=== PATIENT | female | born 1980 | race Caucasian/White ===

== ENCOUNTER → 2017-01-02 | Outpatient (CLI) | payer BC, OTHER ==
[2017-01-02 07:34] LABS: CH 31.9; HDW 2.24; HGB 15.4 gm/dL (11.4-16.0); MCH 31.5 pg (25.0-35.0); MCHC 33.6 g/dL (31.0-37.0); Mean Platelet Volume 6.9; RDW 11.8 % (11.5-15.5); WBC 8.4 k/uL (3.8-10.6)
[2017-01-02 07:57] LABS: ALT 30 U/L (9-52); AST 17 U/L (14-36); Alkaline Phosphatase 79 U/L (38-126); Anion Gap 9 mmol/L; Blood Urea Nitrogen 15 mg/dL (7-17); Carbon Dioxide 25 mmol/L (22-30); Chloride 102 mmol/L (98-107); Cholesterol 217 mg/dL (<200); Glucose 236 mg/dL (74-99); HDL Cholesterol 50 mg/dL (40-60); Non-African American GFR(MDRD) >60 (>60 ml/min/1.73 sqM); Potassium 4.6 mmol/L (3.5-5.1); Sodium 136 mmol/L (137-145); Total Bilirubin 0.9 mg/dL (0.2-1.3); Total Protein 6.9 g/dL (6.3-8.2); Triglycerides 111 mg/dL (<150)
== END | disposition home or self-care (01) ==
LOC: LABWHC1 06:39
PROVIDERS: ATTEND Family Medicine
DX: Z00.01 Encounter for general adult medical examination with abnormal findings (principal); F41.8 Other specified anxiety disorders; Z71.6 Tobacco abuse counseling
CPT/HCPCS: 36415; 80053; 80061; 84443; 85027

== ENCOUNTER → 2017-11-03 | Outpatient (CLI) | payer BC, OTHER | END | disposition home or self-care (01) | LOC: RADUSWWP 08:56 | PROVIDERS: ATTEND Family Medicine | DX: R09.89 Other specified symptoms and signs involving the circulatory and respiratory systems (principal) | CPT/HCPCS: 93923 ==

== ENCOUNTER 2018-01-12 22:14 | Inpatient (IN) | payer BC, OTHER ==
[2018-01-12] MEDS ORDERED: OXYMETAZOLINE 0.05% NASL SPRAY 1 SPRAY BOTTLE NASAL STA (23:25)
[2018-01-12] MEDS ORDERED: OXYMETAZOLINE 0.05% NASL SPRAY 1 SPRAY BOTTLE ONE (23:26)
[2018-01-12] MEDS ORDERED: NITROGLYCERIN OINT 1 INCH/GM PACKET TOPICAL STA (23:39)
--- NOTE | 2018-01-12 23:45 | ED ---
General Adult HPI - General Chief complaint: Recheck/Abnormal Lab/Rx Stated complaint: nose bleed/on blood thinners Time Seen by Provider: 01/12/18 22:45 Source: patient, RN notes reviewed Mode of arrival: ambulatory Limitations: no limitations - History of Present Illness Initial comments: Patient is a pleasant 37-year-old female presenting to the emergency department with complaints of epistaxis. Onset was approximately half hour or so prior to arrival. Patient does have a history of epistaxis couple of times previously. Patient is on brilinta for history of cardiac problems. Patient does also complain of having left shoulder discomfort over the past couple of hours. Patient states shoulder discomfort is similar to previous cardiac problems. Patient denies any chest pain, dyspnea, or diaphoresis. Patient states she does not have those with her heart problems previously either. Patient has had 4 stents placed. - Related Data Home Medications Medication Instructions Recorded Confirmed Dextroamphetamine/Amphetamine 30 mg PO DAILY 06/19/14 01/12/18 [Adderall Xr] Escitalopram [Lexapro] 20 mg PO DAILY 01/12/18 01/12/18 Insulin Aspart (For Pump) [NovoLOG 0.01 unit SQ-PUMP CONTINUOUS 01/12/18 (For Pump)] L.acidoph,Paracasei, B.lactis 1 cap PO DAILY 01/12/18 01/12/18 [Probiotic] Metoprolol Succinate (ER) [Toprol 25 mg PO DAILY 01/12/18 01/12/18 Xl] buPROPion HCL [Wellbutrin XL] 150 mg PO DAILY 01/12/18 01/12/18 Previous Rx's Medication Instructions Recorded Aspirin 81 mg PO DAILY #30 chew 06/24/17 Atorvastatin [Lipitor] 80 mg PO HS #30 tab 06/24/17 Famotidine [Pepcid] 20 mg PO DAILY #30 tablet 06/24/17 Losartan [Cozaar] 12.5 mg PO DAILY #30 tab 06/24/17 Ticagrelor [Brilinta] 90 mg PO BID #60 tab 06/24/17 Allergies Allergy/AdvReac Type Severity Reaction Status Date / Time cefaclor [From Ceclor] Allergy Unknown Verified 01/12/18 22:46 Cephalosporins Allergy Unknown Verified 01/12/18 22:46 hydromorphone HCl Allergy Unknown Verified 01/12/18 22:46 [From Dilaudid] lithium [[place]] Allergy Unknown Verified 01/12/18 22:46 oxcarbazepine Allergy Unknown Verified 01/12/18 22:46 [From Trileptal] phenytoin sodium Allergy Unknown Verified 01/12/18 22:46 [From Dilantin] phenytoin sodium extended Allergy Unknown Verified 01/12/18 22:46 [From Dilantin] Sulfa (Sulfonamide Allergy Unknown Verified 01/12/18 22:46 Antibiotics) sulfamethoxazole Allergy Unknown Verified 01/12/18 22:46 [From Bactrim] trimethoprim [From Bactrim] Allergy Unknown Verified 01/12/18 22:46 Review of Systems ROS Statement: Those systems with pertinent positive or pertinent negative responses have been documented in the HPI. ROS Other: All systems not noted in ROS Statement are negative. Constitutional: Denies: fever Eyes: Denies: eye pain ENT: Denies: ear pain Respiratory: Denies: cough, dyspnea Cardiovascular: Denies: chest pain Endocrine: Denies: fatigue Gastrointestinal: Denies: abdominal pain Genitourinary: Denies: dysuria Musculoskeletal: Denies: back pain Skin: Denies: rash Neurological: Denies: weakness Past Medical History Past Medical History: Diabetes Mellitus, Hyperlipidemia, Hypertension, Myocardial Infarction ([place]) Additional Past Medical History / Comment(s): neuropathy, restless leg syndrome History of Any Multi-Drug Resistant Organisms: None Reported Past Surgical History: Section, Heart Catheterization With Stent, Tubal Ligation Additional Past Surgical History / Comment(s): sinues surgery, right breast cyst removal, 14 cysts taken of ovaries and tubes Past Anesthesia/Blood Transfusion Reactions: No Reported Reaction Past Psychological History: No Psychological Hx Reported Smoking Status: Current some day smoker Past Alcohol Use History: None Reported Past Drug Use History: None Reported General Exam Limitations: no limitations General appearance: alert, in no apparent distress Head exam: Present: atraumatic Eye exam: Present: normal appearance, PERRL ENT exam: Present: other (Active bleeding right nares) Neck exam: Present: normal inspection Respiratory exam: Present: normal lung sounds bilaterally. Absent: chest wall tenderness Cardiovascular Exam: Present: regular rate, normal rhythm Expanded Peripheral pulses: 2+: Radial (R), Radial (L), Dorsalis Pedis (R), Dorsalis Pedis (L) GI/Abdominal exam: Present: soft. Absent: tenderness Extremities exam: Present: normal inspection. Absent: pedal edema, calf tenderness Neurological exam: Present: alert Psychiatric exam: Present: normal affect, normal mood Skin exam: Present: normal color Course Vital Signs 01/12/18 01/13/18 22:36 00:02 Temperature 97.6 F Pulse Rate 76 83 Respiratory 18 16 Rate Blood Pressure 140/71 145/72 O2 Sat by Pulse 99 98 Oximetry EKG Findings - EKG Comments: EKG Findings:: Normal sinus rhythm 77. MS 138. QRS 90. QT 418. QTC 473. Normal axis. Septal Q waves. No acute ST change. Procedures - Procedures Initial comment: Epistaxis treatment: Patient had nasal clamp placed without success. Patient did have active bleeding on the right side. Suction was used. Attempts to cauterize with silver nitrate unsuccessful. Afrin was used. Patient did have Rhino Rocket placed on the right side without complication. There is only mild oozing at this time. Medical Decision Making - Medical Decision Making Patient reevaluated and resting comfortably in bed. Patient states she does have some bruising still however is not witness during reevaluation. Patient does complain of discomfort secondary to nasal packing. Patient is updated on results. Case was discussed in detail with Dr. Hidalgo who was agreeable to hold patient for observation. Cardiac enzymes will be rechecked. - Lab Data Result diagrams: 01/12/18 23:14 01/12/18 23:14 Lab Results 01/12/18 01/12/18 01/12/18 Range/Units 23:14 23:14 23:14 WBC 8.5 (3.8-10.6) k/uL RBC 4.71 (3.80-5.40) m/uL Hgb 14.3 (11.4-16.0) gm/dL Hct 43.4 (34.0-46.0) % MCV 92.1 (80.0-100.0) fL MCH 30.4 (25.0-35.0) pg MCHC 33.0 (31.0-37.0) g/dL RDW 12.0 (11.5-15.5) % Plt Count 247 (150-450) k/uL Neutrophils % 73 % Lymphocytes % 20 % Monocytes % 4 % Eosinophils % 1 % Basophils % 0 % Neutrophils # 6.2 (1.3-7.7) k/uL Lymphocytes # 1.7 (1.0-4.8) k/uL Monocytes # 0.4 (0-1.0) k/uL Eosinophils # 0.1 (0-0.7) k/uL Basophils # 0.0 (0-0.2) k/uL PT (9.0-12.0) sec INR (<1.2) APTT (22.0-30.0) sec Sodium 142 (137-145) mmol/L Potassium 4.1 (3.5-5.1) mmol/L Chloride 106 (98-107) mmol/L Carbon Dioxide 23 (22-30) mmol/L Anion Gap 13 mmol/L BUN 17 (7-17) mg/dL Creatinine 0.70 (0.52-1.04) mg/dL Est GFR (CKD-EPI)AfAm >90 (>60 ml/min/1.73 sqM) Est GFR (CKD-EPI)NonAf >90 (>60 ml/min/1.73 sqM) Glucose 213 H (74-99) mg/dL Calcium 9.5 (8.4-10.2) mg/dL Magnesium 1.8 (1.6-2.3) mg/dL Total Bilirubin 0.3 (0.2-1.3) mg/dL AST 24 (14-36) U/L ALT 43 (9-52) U/L Alkaline Phosphatase 93 (38-126) U/L Total Creatine Kinase 90 (30-135) U/L CK-MB (CK-2) 1.1 (0.0-2.4) ng/mL CK-MB (CK-2) Rel Index 1.2 Troponin I <0.012 (0.000-0.034) ng/mL Total Protein 6.2 L (6.3-8.2) g/dL Albumin 3.8 (3.5-5.0) g/dL 01/12/18 Range/Units 23:14 WBC (3.8-10.6) k/uL RBC (3.80-5.40) m/uL Hgb (11.4-16.0) gm/dL Hct (34.0-46.0) % MCV (80.0-100.0) fL MCH (25.0-35.0) pg MCHC (31.0-37.0) g/dL RDW (11.5-15.5) % Plt Count (150-450) k/uL Neutrophils % % Lymphocytes % % Monocytes % % Eosinophils % % Basophils % % Neutrophils # (1.3-7.7) k/uL Lymphocytes # (1.0-4.8) k/uL Monocytes # (0-1.0) k/uL Eosinophils # (0-0.7) k/uL Basophils # (0-0.2) k/uL PT 9.5 (9.0-12.0) sec INR 1.0 (<1.2) APTT 23.5 (22.0-30.0) sec Sodium (137-145) mmol/L Potassium (3.5-5.1) mmol/L Chloride (98-107) mmol/L Carbon Dioxide (22-30) mmol/L Anion Gap mmol/L BUN (7-17) mg/dL Creatinine (0.52-1.04) mg/dL Est GFR (CKD-EPI)AfAm (>60 ml/min/1.73 sqM) Est GFR (CKD-EPI)NonAf (>60 ml/min/1.73 sqM) Glucose (74-99) mg/dL Calcium (8.4-10.2) mg/dL Magnesium (1.6-2.3) mg/dL Total Bilirubin (0.2-1.3) mg/dL AST (14-36) U/L ALT (9-52) U/L Alkaline Phosphatase (38-126) U/L Total Creatine Kinase (30-135) U/L CK-MB (CK-2) (0.0-2.4) ng/mL CK-MB (CK-2) Rel Index Troponin I (0.000-0.034) ng/mL Total Protein (6.3-8.2) g/dL Albumin (3.5-5.0) g/dL - Radiology Data Radiology results: image reviewed (Chest x-ray reveals no acute process) Disposition Clinical Impression: Epistaxis, Atypical chest pain Disposition: ADMITTED IP TO THIS [facility] Referrals: Jasen Hidalgo MD [Primary Care Provider] - 1-2 days Decision Time: 00:46
[2018-01-12 23:52] LABS: Basophils % (A) 0 %; Eosinophils # (A) 0.1 k/uL (0-0.7); Eosinophils % (A) 1 %; HCT 43.4 % (34.0-46.0); HGB 14.3 gm/dL (11.4-16.0); Lymphocytes # (A) 1.7 k/uL (1.0-4.8); Lymphocytes % (A) 20 %; MCH 30.4 pg (25.0-35.0); MCV 92.1 fL (80.0-100.0); Mean Platelet Volume 6.8; Monocytes # (A) 0.4 k/uL (0-1.0); Monocytes % (A) 4 %; Neutrophils # (A) 6.2 k/uL (1.3-7.7); Neutrophils % (A) 73 %; Platelet Count 247 k/uL (150-450); RBC 4.71 m/uL (3.80-5.40); WBC 8.5 k/uL (3.8-10.6)
[2018-01-12 23:55] LABS: Partial Thromboplastin Time 23.5 sec (22.0-30.0); Prothrombin Time 9.5 sec (9.0-12.0)
[2018-01-12 23:57] LABS: ALT 43 U/L (9-52); AST 24 U/L (14-36); Albumin 3.8 g/dL (3.5-5.0); Alkaline Phosphatase 93 U/L (38-126); Anion Gap 13 mmol/L; Blood Urea Nitrogen 17 mg/dL (7-17); Calcium 9.5 mg/dL (8.4-10.2); Carbon Dioxide 23 mmol/L (22-30); Chloride 106 mmol/L (98-107); Glucose 213 mg/dL (74-99); Magnesium 1.8 mg/dL (1.6-2.3); Potassium 4.1 mmol/L (3.5-5.1); Sodium 142 mmol/L (137-145); Total Bilirubin 0.3 mg/dL (0.2-1.3); Total Protein 6.2 g/dL (6.3-8.2)
[2018-01-13 00:07] LABS: Creatine Kinase 90 U/L (30-135)
[2018-01-13 00:20] LABS: Creatine Kinase MB 1.1 ng/mL (0.0-2.4); Troponin I <0.012 ng/mL (0.000-0.034)
--- NOTE | 2018-01-13 00:35 | XR ---
EXAMINATION TYPE: XR chest 2V DATE OF EXAM: 01/13/2018 COMPARISON: 06/18/2017 HISTORY: Uncontrollable nosebleed. TECHNIQUE: Frontal and lateral views of the chest are obtained. FINDINGS: Heart and mediastinum are normal. Lungs are clear. Diaphragm is normal. Bony thorax appear s normal. There are chest leads. IMPRESSION: Normal chest. No change.
[2018-01-13] MEDS ORDERED: NITROGLYCERIN SL TABS 0.4 MG TAB SUBLINGUAL PRN (00:47)
[2018-01-13] MEDS ORDERED: MORPHINE SULFATE 4 MG/ML SYRINGE IVP STA (00:50)
[2018-01-13 02:29] VITALS: BMI 30.7
[2018-01-13] MEDS: MORPHINE SULFATE 4 MG/ML SYRINGE IVP PRN ×2 (02:45→06:08)
[2018-01-13] MEDS: NITROGLYCERIN OINT 1 INCH/GM PACKET TOPICAL SCH ×4 (06:05→23:13)
[2018-01-13 06:08] LABS: Creatine Kinase 77 U/L (30-135)
[2018-01-13 06:20] LABS: Troponin I <0.012 ng/mL (0.000-0.034)
[2018-01-13 06:56] LABS: Glucose,Whole Blood 75 mg/dL (75-99)
[2018-01-13] MEDS ORDERED: AMINOPHYLLINE 500 MG/20 ML VIAL IV PRN (07:26)
[2018-01-13] MEDS ORDERED: REGADENOSON 0.4 MG/5 ML SYRINGE IV ONE (07:26)
--- NOTE | 2018-01-13 07:59 | CONS ---
CONSULTATION Mrs. Gomez is a 37-year-old female with a known history of coronary artery disease, who presented with symptoms of epistaxis. The patient has been on the Brilinta and aspirin because of the history of coronary artery disease and has had recurrent epistaxis, but yesterday was quite severe. At the same time she had left shoulder discomfort reminding her somewhat of the symptoms she had in May when she presented with non ST-segment elevation myocardial infarction. According to her, this is the first time she has the symptoms. She has been doing well otherwise. She denies any exertional chest pain. Her breathing has been stable. She denies any dizziness or palpitation. She denies any syncope. She has some peripheral edema. She has no clear PND or orthopnea. In May 2017, she presented with a non ST-segment elevation myocardial infarction. She underwent cardiac catheterization at that time and was found to have significant obstructive disease involving the LAD and the right coronary artery. Underwent successful stenting of both vessels by Dr. Álvarez. According to her, this is the first time she has any symptoms. Patient's coronary risk factors are remarkable for occasional smoking. She has a longstanding history of diabetes. She has hyperlipidemia. She has no significant hypertension. Her medications at home include aspirin once a day, Lipitor 80 mg daily, Lexapro 20 mg daily, Pepcid, Cozaar 12.5 mg daily, metoprolol succinate 25 mg daily, Brilinta 90 mg twice a day and insulin. REVIEW OF SYSTEMS: RESPIRATORY SYSTEM: She has no recent wheezing. No cough. No history of obstructive lung disease. GI SYSTEM: No recent GI bleed. No peptic ulcer disease. SYSTEM: No dysuria or hematuria. NERVOUS SYSTEM: No history of stroke or seizure. PHYSICAL EXAMINATION: This is a 37-year-old female, alert, oriented, in no apparent distress. Packing was noted in the right nostril. Blood pressure 138/70 with the heart rate in the 60s. HEAD: Normocephalic. EYES: Sclerae anicteric. NECK: Good upstroke. No bruit. No jugular venous distention. LUNGS: Clear to auscultation. HEART: Regular rate and rhythm. S1, S2. No S3, no S4. No murmur or rub. ABDOMEN: Soft, nontender. Positive bowel sounds. No organomegaly. EXTREMITIES: No edema. Intact distal pulses. LAB DATA: Lab data revealed troponin less than 0.012 for 2 samples. BUN and creatinine 17 and 0.7. Potassium 4.1. Hemoglobin 14.3. EKG revealed a sinus mechanism with a normal axis and intervals. No acute changes with a QS pattern in V1 to V3. IMPRESSION: 1. Epistaxis related to anticoagulation. 2. Shoulder discomfort reminding her of the symptoms she had in May at the time of her presentation with non-ST elevation myocardial infarction. 3. Hyperlipidemia. 4. Diabetes mellitus. RECOMMENDATION: I will obtain an echocardiogram with Doppler and myocardial perfusion imaging to rule out any obstructive coronary artery disease and depending on those results. Further recommendation will be made. The patient may be he switch from Brilinta to aspirin because of the recurrent epistaxis. Thank you for this consult. We will follow with you. JANNETL / IJN: [id number] /
[2018-01-13] MEDS ORDERED: CLOPIDOGREL 75 MG TAB PO SCH (09:00)
[2018-01-13] MEDS ORDERED: buPROPion XL 150 MG TAB.ER.24H PO SCH (09:00)
[2018-01-13] MEDS ORDERED: AMINOPHYLLINE 250 MG/10 ML VIAL IV ONE (09:40)
[2018-01-13] MEDS ORDERED: MORPHINE ORAL SOLN 10 MG/5 ML CUP PO PRN ×2 (10:02→14:38)
--- NOTE | 2018-01-13 11:10 | NM ---
EXAMINATION TYPE: NM stress lexiscan cardiolite DATE OF EXAM: 01/13/2018 COMPARISON: NONE HISTORY: Chest pain TECHNIQUE: After the intravenous administration of 10.7 mCi Tc 99m Sestamibi - Cardiolite resting SP ECT images acquired 45 minutes post injection. The patient received 0.4mg Lexiscan, 25.9 mCi Tc 99m Sestamibi - Stress images obtained [address] injection FINDINGS: Review of stress and rest SPECT images demonstrates some decreased radiopharmaceutical uptake along t he cardiac apex, anteroseptal left ventricle on stress as compared to rest images. Gated analysis sh ows normal wall motion with an estimated left ventricular ejection fraction of 66 %. IMPRESSION: Findings compatible with pharmacologic induced left ventricular myocardial ischemia as described.
[2018-01-13] MEDS: METOPROLOL SUCCINATE (ER) 25 MG TAB.ER.24H PO SCH (11:25)
[2018-01-13] MEDS: FAMOTIDINE 20 MG TAB PO SCH (11:25)
[2018-01-13] MEDS: LOSARTAN 25 MG TAB PO SCH (11:26)
[2018-01-13] MEDS: ESCITALOPRAM 20 MG TAB PO SCH (11:26)
[2018-01-13] MEDS: ASPIRIN 81 MG PO SCH (11:27)
[2018-01-13] MEDS ORDERED: ALPRAZolam 0.25 MG TAB PO PRN (12:16)
[2018-01-13] MEDS ORDERED: SODIUM CHLORIDE 0.9% 1,000 ML in EMPTY BAG 1 BAG IV ONE (12:16)
--- NOTE | 2018-01-13 12:20 | EST ---
EXERCISE STRESS DATE OF SERVICE: 02/13/2018 AGE: 37 SEX: F HT: 5'6" WT: 190 PROTOCOL: Lexiscan Cardiolite Stress Test HEART RATE REST: 62 BLOOD PRESSURE REST: 127/84 MAXIMUM HEART RATE ACHIEVED: 117 MAXIMUM BLOOD PRESSURE: 135/67 85% MPHR: 154 100% MPHR: 181 INDICATIONS: Shoulder pain. CLINICAL INFORMATION: Baseline rhythm is sinus mechanism, rate 62, normal axis, intervals, minor nonspecific ST-T wave changes. Baseline blood pressure 127/84 mmHg. Patient received an injection of Lexiscan. Electrocardiograph monitoring revealed no evidence of diagnostic ischemic ST deviation. Cardiolite was injected per protocol. CONCLUSION: 1. Nondiagnostic electrocardiogram stress testing. 2. Nuclear images will be reported separately. MMODL / IJN: [id number] /
[2018-01-13 12:24] LABS: Glucose,Whole Blood 114 mg/dL (75-99)
[2018-01-13] MEDS ORDERED: ONDANSETRON 4 MG/2 ML VIAL IVP PRN (12:27)
[2018-01-13 12:28] LABS: Creatine Kinase 73 U/L (30-135)
[2018-01-13 12:40] LABS: Creatine Kinase MB 1.2 ng/mL (0.0-2.4); Troponin I <0.012 ng/mL (0.000-0.034)
--- NOTE | 2018-01-13 13:13 | ECHOF ---
Referral Reason:cad MEASUREMENTS -------- HEIGHT: 167.6 cm WEIGHT: 86.2 kg BP: IVSd: 1.1 cm (0.6 - 1.1) LVIDd: 3.0 cm (3.9 - 5.3) LVPWd: 1.3 cm (0.6 - 1.1) IVSs: 1.4 cm LVIDs: 1.7 cm LVPWs: 1.7 cm Ao Diam: 3.2 cm (2.0 - 3.7) AV Cusp: 1.5 cm (1.5 - 2.6) LA Diam: 2.6 cm (2.7 - 3.8) MV EXCURSION: 10.325 mm (> 18.000) MV EF SLOPE: 92 mm/s (70 - 150) EPSS: 0.6 cm MV E Florentin: 0.84 m/s MV DecT: 243 ms MV A Florentin: 0.78 m/s MV E/A Ratio: 1.07 RAP: 5.00 mmHg RVSP: 9.27 mmHg FINDINGS -------- Sinus rhythm. This was a technically adequate study. The left ventricular size is normal. There is mild concentric left ventricular hypertrophy. Overa ll left ventricular systolic function is normal with, an EF between 55 - 60 %. The right ventricle is normal in size and function. The left atrium is normal in size. The right atrium is normal in size. The aortic valve is trileaflet, and appears structurally normal. No aortic stenosis or regurgitation. The mitral valve is normal. There is trace mitral regurgitation. Trace tricuspid regurgitation present. The right ventricular systolic pressure, as measured by Dopp ler, is 9.27mmHg. There is no pulmonic regurgitation present. The aortic root size is normal. Normal inferior vena cava with normal inspiratory collapse consistent with estimated right atrial pre ssure of 5 mmHg. There is no pericardial effusion. CONCLUSIONS -------- 1. Sinus rhythm. 2. This was a technically adequate study. 3. The left ventricular size is normal. 4. There is mild concentric left ventricular hypertrophy. 5. Overall left ventricular systolic function is normal with, an EF between 55 - 60 %. 6. The left atrium is normal in size. 7. The aortic valve is trileaflet, and appears structurally normal. No aortic stenosis or regurgitati on. 8. The mitral valve is normal. 9. There is trace mitral regurgitation. 10. Trace tricuspid regurgitation present. 11. The right ventricular systolic pressure, as measured by Doppler, is 9.27mmHg. 12. There is no pulmonic regurgitation present. 13. The aortic root size is normal. 14. Normal inferior vena cava with normal inspiratory collapse consistent with estimated right atrial pressure of 5 mmHg. 15. There is no pericardial effusion. GLASS INSPECTOR: Lyly Valdez RDCS
--- NOTE | 2018-01-13 14:31 | P.PN ---
Progress Note - Text Progress Note Date: 01/13/18 Lexiscan stress test demonstrated some decreased uptake along the cardiac apex and anteroseptal LV on stress compared to rest images. This has been discussed with her primary screen printing paster, Dr. England, and she is boarded for cardiac catheterization tomorrow. Humaira has been resumed on his recommendation. I have discussed the risks, benefits and alternative therapies for the above- mentioned procedure and for both sedation/analgesia as well as necessary blood product administration, if indicated, as they pertain to this patient. The patient has indicated understanding and acceptance of the risks and procedures discussed. Questions have been answered appropriately and she is agreeable to move forward with the above stated procedure. Family is at the bedside. She will be NPO after midnight for procedure tomorrow around noon-time.
[2018-01-13] MEDS ORDERED: NALOXONE 0.4 MG/ML 1 ML VIAL IV PRN (14:55)
[2018-01-13] MEDS ORDERED: TEMAZEPAM 30 MG CAP PO PRN (15:00)
[2018-01-13] MEDS: LORazepam 2 MG/ML INJ IV PRN (15:13)
[2018-01-13] MEDS: MORPHINE PCA 30 MG/30 ML SYRINGE IV PRN (15:34)
--- NOTE | 2018-01-13 15:52 | P.HPIM ---
History of Present Illness H&P Date: 01/13/18 Chief Complaint: intractable nosebleed, left arm pain Lucy c/o intermittent left arm pain "like when she had a heart attack" for the past several days. She came to the ER for Nosebleed intractable last night as well. The bleedin is controlled with packing. No Arm or chest pain in 12+ hrs. SHe had A [place] 06/24/2017. She is followed by cardiology for this. Nosebleed is something new for her. Currently she denies Chest pain/SOB/N/V. Review of Systems All systems: negative Past Medical History Past Medical History: Diabetes Mellitus, Hyperlipidemia, Hypertension, Myocardial Infarction ([place]) Additional Past Medical History / Comment(s): neuropathy, restless leg syndrome Last Myocardial Infarction Date:: May 2017 History of Any Multi-Drug Resistant Organisms: None Reported Past Surgical History: Section, Heart Catheterization With Stent, Tubal Ligation Additional Past Surgical History / Comment(s): sinues surgery, right breast cyst removal, 14 cysts taken of ovaries and tubes Past Anesthesia/Blood Transfusion Reactions: No Reported Reaction Date of Last Stent Placement:: May 2017 Past Psychological History: ADD/ADHD, Anxiety, Depression Smoking Status: Current some day smoker Past Alcohol Use History: None Reported Past Drug Use History: None Reported Medications and Allergies Home Medications Medication Instructions Recorded Confirmed Type Dextroamphetamine/Amphetamine 30 mg PO DAILY 06/19/14 01/12/18 History [Adderall Xr] Aspirin 81 mg PO DAILY #30 chew 06/24/17 01/12/18 Rx Atorvastatin [Lipitor] 80 mg PO HS #30 tab 06/24/17 01/12/18 Rx Famotidine [Pepcid] 20 mg PO DAILY #30 tablet 06/24/17 01/12/18 Rx Losartan [Cozaar] 12.5 mg PO DAILY #30 tab 06/24/17 01/12/18 Rx Ticagrelor [Brilinta] 90 mg PO BID #60 tab 06/24/17 01/12/18 Rx Escitalopram [Lexapro] 20 mg PO DAILY 01/12/18 01/12/18 History Insulin Aspart (For Pump) [NovoLOG 0.01 unit SQ-PUMP CONTINUOUS 01/12/18 History (For Pump)] L.acidoph,Paracasei, B.lactis 1 cap PO DAILY 01/12/18 01/12/18 History [Probiotic] Metoprolol Succinate (ER) [Toprol 25 mg PO DAILY 01/12/18 01/12/18 History Xl] buPROPion HCL [Wellbutrin XL] 150 mg PO DAILY 01/12/18 01/12/18 History Allergies Allergy/AdvReac Type Severity Reaction Status Date / Time cefaclor [From Ceclor] Allergy Unknown Verified 01/12/18 22:46 Cephalosporins Allergy Unknown Verified 01/12/18 22:46 hydromorphone HCl Allergy Unknown Verified 01/12/18 22:46 [From Dilaudid] lithium [[place]] Allergy Unknown Verified 01/12/18 22:46 oxcarbazepine Allergy Unknown Verified 01/12/18 22:46 [From Trileptal] phenytoin sodium Allergy Unknown Verified 01/12/18 22:46 [From Dilantin] phenytoin sodium extended Allergy Unknown Verified 01/12/18 22:46 [From Dilantin] Sulfa (Sulfonamide Allergy Unknown Verified 01/12/18 22:46 Antibiotics) sulfamethoxazole Allergy Unknown Verified 01/12/18 22:46 [From Bactrim] trimethoprim [From Bactrim] Allergy Unknown Verified 01/12/18 22:46 Physical Exam Vitals: Vital Signs Temp Pulse Pulse Resp BP BP BP 01/13/18 15:15 97.6 F 78 18 138/84 01/13/18 11:20 97.6 F 70 18 138/87 01/13/18 07:20 97.6 F 72 18 134/74 01/13/18 03:33 65 16 138/74 01/13/18 03:00 16 01/13/18 02:03 97.6 F 68 16 140/76 01/13/18 01:28 80 18 133/78 01/13/18 00:02 83 16 145/72 01/12/18 22:36 97.6 F 76 18 140/71 Pulse Ox 01/13/18 15:15 94 L 01/13/18 11:20 96 01/13/18 07:20 97 01/13/18 03:33 95 01/13/18 03:00 01/13/18 02:03 95 01/13/18 01:28 98 01/13/18 00:02 98 01/12/18 22:36 99 Intake and Output 01/13/18 01/13/18 01/13/18 06:59 14:59 22:59 Intake Total 440 Output Total 200 Balance 240 Intake: Oral 440 Output: Emesis 200 Other: Voiding Method Toilet # Voids 2 2 Weight 86.183 kg - Constitutional General appearance: average body habitus - EENT Eyes: EOMI, PERRLA - Neck Neck: no lymphadenopathy, normal ROM, no thyromegaly - Respiratory Respiratory: bilateral: CTA - Cardiovascular Rhythm: regular Heart sounds: normal: S1, S2 - Gastrointestinal General gastrointestinal: no hepatomegaly, normal bowel sounds, no splenomegaly - Integumentary Integumentary: no rash - Neurologic Neurologic: CNII-XII intact - Musculoskeletal Musculoskeletal: gait normal - Psychiatric Psychiatric: A&O x's 3, intact judgment & insight Results CBC & Chem 7: 01/12/18 23:14 01/12/18 23:14 Labs: Abnormal Lab Results - Last 24 Hours (Table) 01/12/18 01/13/18 Range/Units 23:14 12:21 Glucose 213 H (74-99) mg/dL POC Glucose (mg/dL) 114 H (75-99) mg/dL Total Protein 6.2 L (6.3-8.2) g/dL Thrombosis Risk Factor Assmnt - DVT/VTE Prophylaxis DVT/VTE Prophylaxis: Pharmacologic Prophylaxis ordered - Choose All That Apply Each Factor Represents 1 point: Age 41-60 years Thrombosis Risk Factor Assessment Total Risk Factor Score: 1 Thrombosis Risk Factor Assessment Level: Low Risk Assessment and Plan (1) Old [place] (myocardial infarction) Current Visit: Yes Status: Acute Code(s): I25.2 - OLD MYOCARDIAL INFARCTION SNOMED Code(s): 3158731 (2) Insulin pump in place Current Visit: Yes Status: Acute Code(s): Z96.41 - PRESENCE OF INSULIN PUMP (EXTERNAL) (INTERNAL) SNOMED Code(s): 667593912 (3) Type 2 diabetes mellitus with hyperglycemia Current Visit: Yes Status: Acute Code(s): E11.65 - TYPE 2 DIABETES MELLITUS WITH HYPERGLYCEMIA SNOMED Code(s): 708638075702584 (4) Essential (primary) hypertension Current Visit: Yes Status: Acute Code(s): I10 - ESSENTIAL (PRIMARY) HYPERTENSION SNOMED Code(s): 19745723 (5) Mixed hyperlipidemia Current Visit: Yes Status: Acute Code(s): E78.2 - MIXED HYPERLIPIDEMIA SNOMED Code(s): 404106114 (6) Epistaxis Current Visit: Yes Status: Acute Code(s): R04.0 - EPISTAXIS SNOMED Code(s) : 521918196 (7) Chest pain Current Visit: Yes Status: Acute Code(s): R07.9 - CHEST PAIN, UNSPECIFIED SNOMED Code(s): 42486709 Plan: consult cardiology and ENT. wait on their eval. pain meds for nasal pain, continue insulin pump with accuchecks QAC + HS. Serial Troponins
[2018-01-13] MEDS ORDERED: INSULIN ASPART 100 UNIT/ML 1 ML 10 ML VIAL SQ PRN (16:39)
[2018-01-13] MEDS ORDERED: INSULIN PUMP BASAL RATES 1 EACH MISC MISCELLANE PRN (16:39)
[2018-01-13] MEDS ORDERED: INSPUCOR MISCELLANE PRN (16:39)
[2018-01-13 17:22] LABS: Glucose,Whole Blood 244 mg/dL (75-99)
[2018-01-13 20:40] LABS: Glucose,Whole Blood 162 mg/dL (75-99)
[2018-01-13] MEDS: INSULIN PUMP MEAL BOLUS 1 UNIT MISC MISCELLANE SCH ×2 (20:40→20:45)
[2018-01-13] MEDS: ATORVASTATIN 80 MG TAB PO SCH (20:45)
[2018-01-13] MEDS: buPROPion XL 150 MG TAB.ER.24H PO SCH (20:45)
[2018-01-13] MEDS: CLINDAMYCIN 150 MG CAP PO SCH (20:45)
--- NOTE | 2018-01-13 22:50 | CONS ---
CONSULTATION DATE OF CONSULTATION: 01/13/2018 DATE OF ADMISSION: 01/13/2018. REASON FOR CONSULTATION: Epistaxis. HISTORY OF PRESENT ILLNESS: This patient is a 37-year-old female who was admitted to [facility] observation unit via the emergency room at approximately 12 a.m. on 01/13/2018 with right-sided nasal bleeding. The patient states that on the afternoon of 01/12/2018 she had several episodes of bleeding which lasted approximately 1 or 2 hours, and she was able to stop them by applying pressure. However, approximately 1 or 2 hours prior to coming to the emergency room she had a large right-sided nasal bleeding episode which she was not able to stop. She therefore proceeded to the emergency room. She was seen by the emergency room physician, who was not able to identify the exact bleeding spot and therefore inserted an anterior-posterior Rhinostat nasal balloon and inflated this with saline. The patient was subsequently admitted for observation. It is to be noted that the patient has significant ASHD and cardiovascular issues and is currently on Brilinta, which is an anticoagulant. PAST MEDICAL HISTORY: She has MULTIPLE ALLERGIES, includin. CECLOR. 2. BACTRIM. 3. SULFA. 4. DILANTIN. 5. TRILEPTAL. 6. LITHIUM. 7. DILAUDID. 8. MOST CEPHALOSPORINS. The patient denies a direct allergy to penicillin. The patient smokes approximately one half to one pack of cigarettes per day and has been advised to quit for obvious health reasons; however, at this time she does not express any desire to quit smoking. CURRENT HOME MEDICATIONS: 1. One baby aspirin daily. 2. Lipitor. 3. Pepcid. 4. Losartan. 5. Brilinta. 6. NovoLog insulin via insulin pump. 7. Lexapro. 8. Toprol XL. 9. Adderall XR. There is no history of asthma. There is a history of hypertension and type 1 diabetes mellitus. REVIEW OF SYSTEMS: Review of systems is positive in respect to cardiovascular system for hypertension and ASHD. The patient states that she has had 4 cardiac stents implanted. Respiratory system is negative. Gastrointestinal system is positive for GERD. Metabolic/endocrine system is positive for hypercholesterolemia. Remainder of review of systems is negative. The patient is on psychiatric medications, but a definitive psychiatric diagnosis is not determined at this time. Remainder of the review of systems is unremarkable. PHYSICAL EXAMINATION: This patient is a 37-year-old female who is alert, cooperative, and is in significant discomfort due to the balloon nasal packing on the right side of her nose. She is quite animated and uncomfortable and is using swear words because she wants the nasal packing removed. She states that the current oral morphine does not begin to control the amount of pain and discomfort that she is having from the nasal packing. HEENT: The patient is normocephalic. Tympanic membranes are normal. Middle ear space is free of any fluid or infection. Pupils are equal, round and reactive to light and accommodation. Intranasal examination reveals that the left side has no active bleeding. The right side is completely packed with a nasal balloon and therefore is not available for inspection. Oropharynx and the remainder of the head and neck exam are essentially unremarkable. CHEST/CARDIOVASCULAR: Both lung jane are clear to percussion and auscultation. The patient is in regular sinus rhythm. S1 and S2 are present without evidence of any murmurs, S3s or S4s. ABDOMEN: Soft. The remainder of the physical exam is unremarkable. IMPRESSION: Right epistaxis. Suspect anterior epistaxis. PLAN: Unfortunately, because the patient is on an anticoagulant, namely Brilinta, I am not able to remove any packing. Removing the packing at this time would be useless and futile because the bleeding would recur. In addition to this, it is impossible to cauterize this area at this time because the patient is still on a blood thinner. The nurses stated that it is not possible for her to be taken off of the Brilinta because of her significant cardiac condition. In addition to this, I was informed that she is scheduled to undergo a cardiac catheterization in the a.m. for further evaluation of her heart status. It is to be noted that the balloons that she currently has in place only have approximately 1 or 2 mL each in each balloon. They are designed to hold a total of approximately 10 mL to 20 mL for the anterior and posterior balloon, respectively. However, even a minimum few milliliters of saline or the air in these balloons elicits extreme pain because of the pressure placed between the nasal septum and the turbinates. At this point, this is the only method that I see of controlling her bleeding. If the balloons are deflated and removed prematurely and bleeding occurs, the balloons will have to be reinserted, which is extremely uncomfortable, and I doubt very seriously if this patient will allow anyone to reinsert the balloons into her nose again. Therefore I urge all physicians caring for this patient not to remove or deflate the nasal balloons and to allow me to manage the patient's epistaxis. I am hopeful over the next day or two that I will be able to gradually reduce some of the pressure intranasally to see if there is any active bleeding, but certainly at this time I would recommend against doing so, despite the patient's complaint. This was all explained to the patient and to her mom in a very calm manner in the presence of her nurse. The patient is obviously and understandably upset with the balloons being in place and with the discomfort that she is experiencing. She stated that she had these inserted several years ago for the same bleeding, but that they were able to be removed within 12 hours. I am not sure what her status was at that time and whether or not she was on a blood thinner, but I suspect that at that point she was not on any significant blood thinner. Being on the blood thinner/anticoagulant makes all the difference with regards to the ease of controlling epistaxis. In addition to this, I have advised the patient to carefully monitor the patient's blood pressure, because any increase in blood pressure will also cause bleeding, even though the nasal balloons are in place. I will see the patient on a daily basis and monitor her progress and certainly will remove her nasal balloon/packing as soon as I feel that it is appropriate to do so with the least chance of any recurrent bleeding. I have advised the patient that I will try and control her pain better by placing her on a PLAY LEADER pump. In placing her on a PLAY LEADER pump using morphine, the nurses can adjust the dosage either up or down within given parameters. In addition to this, I am going to order her to receive Ativan 2 mg IV t.i.d. p.r.n. only. Lastly, because the patient is very upset about not being able to rest or sleep, I have ordered for her to receive Restoril capsules 30 mg at bedtime, again p.r.n. only. Certainly if the nurses feel that the patient is becoming too sedated, they will withhold one or more of these medications that I have ordered. I will monitor this patient daily and keep you informed of her progress and also informed of what my thoughts are with respect to the status of her nasal balloon packing and its removal. I want to take this opportunity to thank you for allowing me to assist you in the care of your patient. If I can be of any further assistance, please feel free to call my office. RONAK / RUDDY: [id number] /
[2018-01-14] MEDS: NITROGLYCERIN OINT 1 INCH/GM PACKET TOPICAL SCH ×3 (04:54→18:04)
[2018-01-14 05:44] LABS: Cholesterol 122 mg/dL (<200); HDL Cholesterol 46 mg/dL (40-60); LDL Cholesterol,Calculated 65 mg/dL (0-99); Triglycerides 55 mg/dL (<150)
[2018-01-14 06:54] LABS: Glucose,Whole Blood 121 mg/dL (75-99)
[2018-01-14] MEDS: TICAGRELOR 90 MG TAB PO SCH ×2 (08:07→19:41)
[2018-01-14] MEDS: CLINDAMYCIN 150 MG CAP PO SCH ×3 (08:07→19:42)
[2018-01-14] MEDS: LOSARTAN 25 MG TAB PO SCH (08:07)
[2018-01-14] MEDS: ESCITALOPRAM 20 MG TAB PO SCH (08:07)
[2018-01-14] MEDS: ASPIRIN 81 MG PO SCH (08:08)
[2018-01-14] MEDS: FAMOTIDINE 20 MG TAB PO SCH (08:08)
[2018-01-14] MEDS: METOPROLOL SUCCINATE (ER) 25 MG TAB.ER.24H PO SCH (08:08)
[2018-01-14] MEDS: INSULIN PUMP MEAL BOLUS 1 UNIT MISC MISCELLANE SCH ×2 (08:11→12:28)
--- NOTE | 2018-01-14 11:04 | P.PN ---
Subjective Lucy c/o intermittent left arm pain "like when she had a heart attack" for the past several days. She came to the ER for Nosebleed intractable last night as well. The bleedin is controlled with packing. No Arm or chest pain in 12+ hrs. SHe had A UT 06/24/2017. She is followed by cardiology for this. Nosebleed is something new for her. Currently she denies Chest pain/SOB/N/V. 01/14/2018: ENT had seen her yesterday and felt that the packing could not be removed due to her use of Brillinta anticoagulant. He is complaining of ongoing pain. She does have a pain pump now from Dr. Razo for this. He will reevaluate her later today. Cardiology is planning a cardiac catheterization today. She is chest pain- free. She remains nothing by mouth. She denies any shortness of breath, nausea , vomiting. Objective - Vital Signs Vital signs: Vital Signs Temp 98.1 F 01/14/18 07:15 Pulse 88 01/14/18 08:00 Resp 18 01/14/18 08:00 BP 152/92 01/14/18 07:15 Pulse Ox 98 01/14/18 07:15 Intake & Output 01/13/18 01/14/18 01/14/18 18:59 06:59 18:59 Intake Total 440 630 Output Total 200 Balance 240 630 Intake: IV 630 Sodium Chloride 0.9% 1, 630 000 ml In Empty Bag 1 bag @ 1 ML/KG/HR 86.18 mls/ hr IV .[id number] ONE Rx#: [id number] Oral 440 Output: Emesis 200 Other: Voiding Method Toilet Toilet # Voids 2 3 - Exam General: The patient is awake and alert, in mild distress, and there is packing in her rightNare There is mild facial swelling. Neck: The neck is supple, there is no thyromegaly, lymphadenopathy, tenderness or JVD. Cardiovascular: S1S2 is normal, There is a regular rate and rhythm. No murmur, rub or gallop is appreciated. Respiratory: Lungs are clear to auscultation bilaterally, respirations are non -labored, breath sounds are equal. Gastrointestinal: Soft, non-distended, non-tender abdomen without masses or organomegaly noted. There is no rebound or guarding present. Bowel sounds are unremarkable. Musculoskeletal: Normal ROM, no tenderness, There is no pedal edema. There is no calf tenderness or swelling. No cords were appreciated. Neurological: CN II-XII intact, there are no obvious motor or sensory deficits. Coordination appears grossly intact. Speech is normal. Skin: Skin is warm and dry and no rashes or lesions are noted. - Labs CBC & Chem 7: 01/12/18 23:14 01/12/18 23:14 Labs: Abnormal Lab Results - Last 24 Hours (Table) 01/13/18 01/13/18 01/13/18 Range/Units 12:21 17:17 20:36 POC Glucose (mg/dL) 114 H 244 H 162 H (75-99) mg/dL 01/14/18 Range/Units 06:52 POC Glucose (mg/dL) 121 H (75-99) mg/dL Assessment and Plan (1) Old UT (myocardial infarction) Current Visit: Yes Status: Acute Code(s): I25.2 - OLD MYOCARDIAL INFARCTION SNOMED Code(s): 9816035 (2) Insulin pump in place Current Visit: Yes Status: Acute Code(s): Z96.41 - PRESENCE OF INSULIN PUMP (EXTERNAL) (INTERNAL) SNOMED Code(s): 033952647 (3) Type 2 diabetes mellitus with hyperglycemia Current Visit: Yes Status: Acute Code(s): E11.65 - TYPE 2 DIABETES MELLITUS WITH HYPERGLYCEMIA SNOMED Code(s): 790625252463374 (4) Essential (primary) hypertension Current Visit: Yes Status: Acute Code(s): I10 - ESSENTIAL (PRIMARY) HYPERTENSION SNOMED Code(s): 90774530 (5) Mixed hyperlipidemia Current Visit: Yes Status: Acute Code(s): E78.2 - MIXED HYPERLIPIDEMIA SNOMED Code(s): 085559934 (6) Epistaxis Current Visit: Yes Status: Acute Code(s): R04.0 - EPISTAXIS SNOMED Code(s) : 037202127 (7) Chest pain Current Visit: Yes Status: Acute Code(s): R07.9 - CHEST PAIN, UNSPECIFIED SNOMED Code(s): 06357999 Plan: We will await cardiology catheterization. Weight ENT reevaluation. She'll continue on her current medications and treatments. She'll need to be here at least another 24 hours. I will reevaluate her then. Pending labs
[2018-01-14] MEDS: LORazepam 2 MG/ML INJ IV PRN (12:10)
[2018-01-14 12:17] LABS: Glucose,Whole Blood 157 mg/dL (75-99)
[2018-01-14] MEDS ORDERED: LIDOCAINE 2% INJ 20 MG/ML (20 ML MDV) ONE (12:33)
[2018-01-14] MEDS ORDERED: IV FLUID CONTINUATION 1,000 ML IV ONE (12:44)
[2018-01-14] MEDS ORDERED: LIDOCAINE 2% INJ 20 MG/ML SQ ONE (12:58)
[2018-01-14] MEDS: NITROGLYCERIN 1000MCG/10ML SYRINGE INTRACORON ONE ×2 (13:05→13:13)
[2018-01-14] MEDS ORDERED: NITROGLYCERIN 1000MCG/10ML SYRINGE INTRACORON ONE (13:05)
[2018-01-14] MEDS ORDERED: IOPAMIDOL-370 125ML BTL INJ ONE (13:20)
[2018-01-14] MEDS ORDERED: RX INFO: IV CONTRAST WAS GIVEN 1 EACH MISC MISCELLANE PRN (15:22)
--- NOTE | 2018-01-14 16:00 | CC ---
CARDIAC CATHETERIZATION REPORT Mrs. Gomez is a 36-year-old female, who came in with epistaxis and some shoulder pain. Patient underwent stress test, which showed evidence of anterior apical ischemia. In view of that, the patient was recommended to have a cardiac catheterization for definitive diagnosis. Patient's cardiac enzymes were normal. PROCEDURE: The right groin is prepped and draped in the usual manner and the skin is infiltrated with 2% Xylocaine. The right femoral artery was entered using Seldinger technique and a #6-Nepalese sheath was placed in. Selective coronary angiography was then performed in multiple projections and the left ventricular pressures were obtained. SEDATION: Moderate sedation was used 24 minutes. HEMODYNAMICS: The left ventricular end-diastolic pressure is 14 to 16 mmHg prior to angiography. No gradient is noted across the aortic valve. SELECTIVE CORONARY ANGIOGRAPHY: Left main coronary artery is normal and patent. LAD is a good caliber blood vessel and it is patent at the site of prior stent placement. Beyond the stent placement distal LAD is a small caliber blood vessels is tortuous and has about 40% to 50% stenosis. Circumflex coronary artery has mild disease. There is a small size intermediate branch which is diffusely diseased. Right coronary is patent at the site of the prior stent placement. There is about 30- 40% lesion in proximal right and mid right coronary artery in between the stent and this is unchanged as compared to before. FINAL IMPRESSION: This study reveals mild disease about 40-50% in the distal LAD which is a small caliber blood vessel. The proximal and mid right coronary artery has about 40% stenosis in between the stent which is unchanged from before. RECOMMENDATIONS: Films were reviewed with Dr. Álvarez. In view of the mild disease we will continue the patient aggressive medical treatment and risk factor modification. MMODL / IJN: [id number] /
[2018-01-14 17:21] LABS: Hemoglobin A1C 8.3 % (4.0-6.0)
[2018-01-14 17:25] LABS: Glucose,Whole Blood 257 mg/dL (75-99)
[2018-01-14] MEDS: INSULIN ASPART 100 UNIT/ML 1 ML 10 ML VIAL SQ SCH ×2 (17:49→19:43)
[2018-01-14] MEDS: ATORVASTATIN 80 MG TAB PO SCH (19:42)
[2018-01-14] MEDS: buPROPion XL 150 MG TAB.ER.24H PO SCH (19:42)
[2018-01-14 19:43] LABS: Glucose,Whole Blood 251 mg/dL (75-99)
[2018-01-14] MEDS: MORPHINE PCA 30 MG/30 ML SYRINGE IV PRN (23:11)
[2018-01-15] MEDS: NITROGLYCERIN OINT 1 INCH/GM PACKET TOPICAL SCH ×3 (00:04→18:32)
[2018-01-15 06:39] LABS: Glucose,Whole Blood 227 mg/dL (75-99)
[2018-01-15 06:58] LABS: Basophils % (A) 0 %; Eosinophils # (A) 0.1 k/uL (0-0.7); Eosinophils % (A) 1 %; HCT 40.2 % (34.0-46.0); Lymphocytes % (A) 23 %; MCH 30.3 pg (25.0-35.0); MCHC 32.4 g/dL (31.0-37.0); MCV 93.7 fL (80.0-100.0); Mean Platelet Volume 6.6; Monocytes # (A) 0.5 k/uL (0-1.0); Monocytes % (A) 6 %; Neutrophils # (A) 5.9 k/uL (1.3-7.7); Neutrophils % (A) 68 %; Platelet Count 240 k/uL (150-450); RBC 4.29 m/uL (3.80-5.40); RDW 11.9 % (11.5-15.5); WBC 8.7 k/uL (3.8-10.6)
[2018-01-15 07:12] LABS: Anion Gap 9 mmol/L; Blood Urea Nitrogen 9 mg/dL (7-17); Calcium 8.7 mg/dL (8.4-10.2); Carbon Dioxide 27 mmol/L (22-30); Chloride 103 mmol/L (98-107); Glucose 235 mg/dL (74-99); Potassium 4.4 mmol/L (3.5-5.1); Sodium 139 mmol/L (137-145)
[2018-01-15] MEDS: CLINDAMYCIN 150 MG CAP PO SCH ×3 (08:57→20:59)
[2018-01-15] MEDS: LOSARTAN 25 MG TAB PO SCH (08:57)
[2018-01-15] MEDS: ESCITALOPRAM 20 MG TAB PO SCH (08:57)
[2018-01-15] MEDS: FAMOTIDINE 20 MG TAB PO SCH (08:57)
[2018-01-15] MEDS: METOPROLOL SUCCINATE (ER) 25 MG TAB.ER.24H PO SCH (08:58)
[2018-01-15] MEDS: TICAGRELOR 90 MG TAB PO SCH ×2 (08:58→20:59)
[2018-01-15] MEDS: INSULIN ASPART 100 UNIT/ML 1 ML 10 ML VIAL SQ SCH ×4 (09:02→20:59)
[2018-01-15] MEDS: ASPIRIN 81 MG PO SCH (09:03)
--- NOTE | 2018-01-15 12:21 | P.PN ---
Subjective Lucy c/o intermittent left arm pain "like when she had a heart attack" for the past several days. She came to the ER for Nosebleed intractable last night as well. The bleedin is controlled with packing. No Arm or chest pain in 12+ hrs. SHe had A IL 06/24/2017. She is followed by cardiology for this. Nosebleed is something new for her. Currently she denies Chest pain/SOB/N/V. 01/14/2018: ENT had seen her yesterday and felt that the packing could not be removed due to her use of Brillinta anticoagulant. He is complaining of ongoing pain. She does have a pain pump now from Dr. Razo for this. He will reevaluate her later today. Cardiology is planning a cardiac catheterization today. She is chest pain- free. She remains nothing by mouth. She denies any shortness of breath, nausea , vomiting. 01/15/2018: Cardiology performed a cardiac catheterization yesterday and it showed minimal disease. She remains on Brillinta. They're planning maximal medical therapy. ENT is planning on lowering the pressure on her basal packing today. Possibly removing it in 2-3 days. She remains on pain pump. She denies any complaints of chest pains, shortness of breath, nausea or vomiting this time. Objective - Vital Signs Vital signs: Vital Signs Temp 97.8 F 01/15/18 08:00 Pulse 91 01/15/18 08:00 Resp 16 01/15/18 08:00 BP 154/81 01/15/18 08:00 Pulse Ox 95 01/15/18 08:00 Intake & Output 01/14/18 01/15/18 01/15/18 18:59 06:59 18:59 Intake Total 100 Balance 100 Intake: IV 100 Other: Voiding Method Toilet Toilet # Voids 2 - Exam General: The patient is awake and alert, in mild distress, and there is packing in her rightNare There is mild facial swelling. Neck: The neck is supple, there is no thyromegaly, lymphadenopathy, tenderness or JVD. Cardiovascular: S1S2 is normal, There is a regular rate and rhythm. No murmur, rub or gallop is appreciated. Respiratory: Lungs are clear to auscultation bilaterally, respirations are non -labored, breath sounds are equal. Gastrointestinal: Soft, non-distended, non-tender abdomen without masses or organomegaly noted. There is no rebound or guarding present. Bowel sounds are unremarkable. Musculoskeletal: Normal ROM, no tenderness, There is no pedal edema. There is no calf tenderness or swelling. No cords were appreciated. Neurological: CN II-XII intact, there are no obvious motor or sensory deficits. Coordination appears grossly intact. Speech is normal. Skin: Skin is warm and dry and no rashes or lesions are noted. - Labs CBC & Chem 7: 01/15/18 06:20 01/15/18 06:20 Labs: Abnormal Lab Results - Last 24 Hours (Table) 01/13/18 01/14/18 01/14/18 Range/Units 05:23 17:22 19:40 Glucose (74-99) mg/dL POC Glucose (mg/dL) 257 H 251 H (75-99) mg/dL Hemoglobin A1c 8.3 H (4.0-6.0) % 01/15/18 01/15/18 Range/Units 06:20 06:37 Glucose 235 H (74-99) mg/dL POC Glucose (mg/dL) 227 H (75-99) mg/dL Hemoglobin A1c (4.0-6.0) % Assessment and Plan (1) Old IL (myocardial infarction) Current Visit: Yes Status: Acute Code(s): I25.2 - OLD MYOCARDIAL INFARCTION SNOMED Code(s): 8673557 (2) Insulin pump in place Current Visit: Yes Status: Acute Code(s): Z96.41 - PRESENCE OF INSULIN PUMP (EXTERNAL) (INTERNAL) SNOMED Code(s): 832241084 (3) Type 2 diabetes mellitus with hyperglycemia Current Visit: Yes Status: Acute Code(s): E11.65 - TYPE 2 DIABETES MELLITUS WITH HYPERGLYCEMIA SNOMED Code(s): 898317405243117 (4) Essential (primary) hypertension Current Visit: Yes Status: Acute Code(s): I10 - ESSENTIAL (PRIMARY) HYPERTENSION SNOMED Code(s): 73965184 (5) Mixed hyperlipidemia Current Visit: Yes Status: Acute Code(s): E78.2 - MIXED HYPERLIPIDEMIA SNOMED Code(s): 234568217 (6) Epistaxis Current Visit: Yes Status: Acute Code(s): R04.0 - EPISTAXIS SNOMED Code(s) : 453850776 (7) Chest pain Current Visit: Yes Status: Acute Code(s): R07.9 - CHEST PAIN, UNSPECIFIED SNOMED Code(s): 54481856 Plan: We'll continue her insulin for diabetes. Her pumps on hold. Awaiting ENT evaluation and treatment regarding her epistaxis.. Cardiology will maximize her medical therapy. I'll reevaluate next 24 hours.
[2018-01-15 12:42] LABS: Glucose,Whole Blood 170 mg/dL (75-99)
[2018-01-15] MEDS: ISOSORBIDE MONONITRATE ER 15 MG TAB PO SCH (14:02)
--- NOTE | 2018-01-15 15:00 | P.PN ---
Subjective Progress Note Date: 01/15/18 Mrs. Gomez underwent cardiac catheterization yesterday with Dr. England. The study revealed patent stent of the LAD just beyond the stent in the distal portion is tortuous and about 40-50% stenosis, circumflex artery has mild disease, right coronary artery with a 30-40% proximal lesion between the stent that is unchanged from previous catheterization. Films were reviewed by Dr. Álvarez and aggressive medical therapy and risk factor modification have been recommended. She has been seen in consultation by ENT still has a right-sided nasal balloon in place with plans for re-evaluation of bleeding today. There has been no active bleeding around packing. Hemoglobin today stable at 13.0, however this is down from 14.3 on admission. Blood pressure 154/81 heart rate 91 afebrile maintaining oxygen saturation on room air. Patient up walking with no difficulty. Denies chest pain, shortness of breath, dizziness, palpitations, diaphoresis, nausea or vomiting. Objective - Vital Signs Vital signs: Vital Signs Temp 97.8 F 01/15/18 08:00 Pulse 91 01/15/18 08:00 Resp 16 01/15/18 08:00 BP 154/81 01/15/18 08:00 Pulse Ox 95 01/15/18 08:00 Intake & Output 01/14/18 01/15/18 01/15/18 18:59 06:59 18:59 Intake Total 100 Balance 100 Intake: IV 100 Other: Voiding Method Toilet Toilet # Voids 2 - Exam GENERAL: Well-appearing, well-nourished and in no acute distress. NECK: Supple without JVD or thyromegaly. LUNGS: Breath sounds clear to auscultation bilaterally. Respiration equal and unlabored. No wheezes, rales or rhonchi. HEART: Regular rate and rhythm without murmurs, rubs or gallops. S1 and S2 heard. EXTREMITIES: Normal range of motion, no edema. No clubbing or cyanosis. Peripheral pulses intact and strong. Right groin soft, non-tender with small knot felt from closure device. No bleeding, hematomaa or ecchymosis. - Labs CBC & Chem 7: 01/15/18 06:20 01/15/18 06:20 Labs: Abnormal Lab Results - Last 24 Hours (Table) 01/13/18 01/14/18 01/14/18 Range/Units 05:23 12:14 17:22 Glucose (74-99) mg/dL POC Glucose (mg/dL) 157 H 257 H (75-99) mg/dL Hemoglobin A1c 8.3 H (4.0-6.0) % 01/14/18 01/15/18 01/15/18 Range/Units 19:40 06:20 06:37 Glucose 235 H (74-99) mg/dL POC Glucose (mg/dL) 251 H 227 H (75-99) mg/dL Hemoglobin A1c (4.0-6.0) % Assessment and Plan Assessment: ASSESSMENT 1. Chest pain, atypical. 2. Epistaxis secondary to anticoagulation 3. History of coronary artery disease with recent stenting May 2017 4. Dyslipidemia 5. Diabetes mellitus 6. Hypertension 7. Chronic nicotine dependence PLAN Continue on current medical therapy with Brillinta. ENT has decreased the balloon in right nare and will continue to slowly release over the weekend and continue to assess for bleeding. Stable from a cardiac perspective. Brillilnta should be continued as long as bleeding is controlled. Follow-up with Dr. England in 1 week. Nurse Practitioner note has been reviewed, I agree with a documented findings and plan of care. Patient was seen and examined.
[2018-01-15 18:22] LABS: Glucose,Whole Blood 272 mg/dL (75-99)
[2018-01-15 20:49] LABS: Glucose,Whole Blood 309 mg/dL (75-99)
[2018-01-15] MEDS: buPROPion XL 150 MG TAB.ER.24H PO SCH (20:59)
[2018-01-15] MEDS: ATORVASTATIN 80 MG TAB PO SCH (20:59)
[2018-01-15] MEDS: ALPRAZolam 0.5 MG TAB PO PRN (21:03)
[2018-01-16] MEDS: MORPHINE PCA 30 MG/30 ML SYRINGE IV PRN (00:36)
[2018-01-16] MEDS: NITROGLYCERIN OINT 1 INCH/GM PACKET TOPICAL SCH ×5 (00:42→23:02)
[2018-01-16 06:02] LABS: Glucose,Whole Blood 285 mg/dL (75-99)
[2018-01-16] MEDS: INSULIN ASPART 100 UNIT/ML 1 ML 10 ML VIAL SQ SCH ×4 (06:37→20:27)
[2018-01-16] MEDS: ESCITALOPRAM 20 MG TAB PO SCH (08:17)
[2018-01-16] MEDS: LOSARTAN 25 MG TAB PO SCH (08:17)
[2018-01-16] MEDS: ASPIRIN 81 MG PO SCH (08:17)
[2018-01-16] MEDS: CLINDAMYCIN 150 MG CAP PO SCH ×3 (08:17→20:27)
[2018-01-16] MEDS: FAMOTIDINE 20 MG TAB PO SCH (08:17)
[2018-01-16] MEDS: METOPROLOL SUCCINATE (ER) 25 MG TAB.ER.24H PO SCH (08:17)
[2018-01-16] MEDS: TICAGRELOR 90 MG TAB PO SCH ×2 (08:17→20:27)
[2018-01-16] MEDS: ISOSORBIDE MONONITRATE ER 15 MG TAB PO SCH (08:17)
--- NOTE | 2018-01-16 10:02 | PN ---
PROGRESS NOTE DATE OF PROGRESS NOTE: 01/14/2018 SUBJECTIVE: Vital signs are stable. The patient is doing markedly better since having been placed on a morphine LINUX SYSTEM ENGINEER pump, which the nurses will be adjusting downward in the dosage gradually as necessary. She is still complaining of the fact that the balloon packing in the right nostril is quite uncomfortable. However, she states that she is quite grateful that she was able to finally get a good night sleep. She has not had any complaints of any active bleeding. OBJECTIVE: HEENT: Patient is normocephalic. Examination of the left nostril is unremarkable. Examination of the nasal balloon reveals it to be intact and dry. Examination of oropharynx does not reveal any bleeding down the posterior pharyngeal wall. The remainder of the head and neck exam and physical exam is unchanged since last visit. ASSESSMENT: Right anterior posterior epistaxis. PLAN: On 01/15/2018, I will see the patient and at that time I plan to remove several mL of air from the anterior and posterior balloons and gradually deflate the balloons over the next several days. MMODL / IJN: [id number] /
--- NOTE | 2018-01-16 10:08 | PN ---
PROGRESS NOTE DATE OF PROGRESS NOTE: 01/15/2018 SUBJECTIVE: Vital signs are stable. The patient has not had any further acute bleeding. She underwent a cardiac catheterization yesterday and was noted that she had approximately 40% blockage of several coronary arteries. The nurses state that she has not had any difficulty with bleeding and the patient states that she has been quite comfortable. The nurses have decreased her morphine settings on the PROCESSING ARCHIVIST pump and the patient has tolerated this well. In fact, the patient states that she has only had to use the PROCESSING ARCHIVIST pump occasionally. OBJECTIVE: HEENT: Patient is normocephalic. The Rhino Rocket nasal balloons are intact and dry. Using a 10 mL syringe, approximately 3 mL of air was removed from the anterior balloon and approximately 5 to 6 mL of air was removed from the larger posterior balloon. There was no significant bleeding after removal of this air. The patient stated that there was a slight relief of the pressure that she had been experiencing in her head. ASSESSMENT: Right anterior posterior epistaxis. PLAN: On Thursday, , I will see the patient sometime in the afternoon and at that time, we will most likely remove all of the air from both the anterior and the posterior balloons. However, I will leave the balloon in place intranasally so that if any bleeding occurs they can be re-expanded without having to reinsert this device, which is quite uncomfortable. If the patient does not have any bleeding 24 hours after complete deflation of the balloons, I will see the patient on Thursday and at that time, we will most likely remove the balloons and the patient would most likely be able to be discharged either Thursday or Thursday at the latest from an ENT standpoint. MMODL / IJN: [id number] /
--- NOTE | 2018-01-16 10:29 | P.PN ---
Subjective Ulcy c/o intermittent left arm pain "like when she had a heart attack" for the past several days. She came to the ER for Nosebleed intractable last night as well. The bleedin is controlled with packing. No Arm or chest pain in 12+ hrs. SHe had A SC 06/24/2017. She is followed by cardiology for this. Nosebleed is something new for her. Currently she denies Chest pain/SOB/N/V. 01/14/2018: ENT had seen her yesterday and felt that the packing could not be removed due to her use of Brillinta anticoagulant. He is complaining of ongoing pain. She does have a pain pump now from Dr. Razo for this. He will reevaluate her later today. Cardiology is planning a cardiac catheterization today. She is chest pain- free. She remains nothing by mouth. She denies any shortness of breath, nausea , vomiting. 01/15/2018: Cardiology performed a cardiac catheterization yesterday and it showed minimal disease. She remains on Brillinta. They're planning maximal medical therapy. ENT is planning on lowering the pressure on her basal packing today. Possibly removing it in 2-3 days. She remains on pain pump. She denies any complaints of chest pains, shortness of breath, nausea or vomiting this time. 01/16/2018: Patient is doing okay. She is only used her pain pump rarely overnight. She has 1 mg of morphine ordered with a temp lock out currently. She reports Dr. Razo deflated the Rhinostat nasal balloon by 50%. He will deflated again later today and possibly remove it tomorrow. Cardiology had cleared her recommended maximal medical therapy after cardiac catheterization. She denies any other complaints of chest pains, shortness of breath, nausea or vomiting this time. Objective - Vital Signs Vital signs: Vital Signs Temp 97.5 F L 01/16/18 00:00 Pulse 78 01/16/18 03:22 Resp 15 01/16/18 03:22 BP 136/76 01/16/18 03:22 Pulse Ox 97 01/16/18 03:22 Intake & Output 01/15/18 01/16/18 01/16/18 18:59 06:59 18:59 Intake Total 240 Output Total 200 Balance 240 -200 Weight 86.4 kg Intake: Oral 240 Output: Urine 200 Other: Voiding Method Toilet # Voids 2 - Exam General: The patient is awake and alert, in mild distress, and there is packing in her rightNare There is mild facial swelling. HEENT: There remains a Rhinostat nasal balloon in place in the right nare. Neck: The neck is supple, there is no thyromegaly, lymphadenopathy, tenderness or JVD. Cardiovascular: S1S2 is normal, There is a regular rate and rhythm. No murmur, rub or gallop is appreciated. Respiratory: Lungs are clear to auscultation bilaterally, respirations are non -labored, breath sounds are equal. Gastrointestinal: Soft, non-distended, non-tender abdomen without masses or organomegaly noted. There is no rebound or guarding present. Bowel sounds are unremarkable. Musculoskeletal: Normal ROM, no tenderness, There is no pedal edema. There is no calf tenderness or swelling. No cords were appreciated. Neurological: CN II-XII intact, there are no obvious motor or sensory deficits. Coordination appears grossly intact. Speech is normal. Skin: Skin is warm and dry and no rashes or lesions are noted. - Labs CBC & Chem 7: 01/15/18 06:20 01/15/18 06:20 Labs: Abnormal Lab Results - Last 24 Hours (Table) 01/15/18 01/15/18 01/15/18 Range/Units 12:26 18:17 20:48 POC Glucose (mg/dL) 170 H 272 H 309 H (75-99) mg/dL 01/16/18 Range/Units 06:02 POC Glucose (mg/dL) 285 H (75-99) mg/dL Assessment and Plan (1) Old SC (myocardial infarction) Current Visit: Yes Status: Acute Code(s): I25.2 - OLD MYOCARDIAL INFARCTION SNOMED Code(s): 2699774 (2) Insulin pump in place Current Visit: Yes Status: Acute Code(s): Z96.41 - PRESENCE OF INSULIN PUMP (EXTERNAL) (INTERNAL) SNOMED Code(s): 017188684 (3) Type 2 diabetes mellitus with hyperglycemia Current Visit: Yes Status: Acute Code(s): E11.65 - TYPE 2 DIABETES MELLITUS WITH HYPERGLYCEMIA SNOMED Code(s): 836954072680513 (4) Essential (primary) hypertension Current Visit: Yes Status: Acute Code(s): I10 - ESSENTIAL (PRIMARY) HYPERTENSION SNOMED Code(s): 26548586 (5) Mixed hyperlipidemia Current Visit: Yes Status: Acute Code(s): E78.2 - MIXED HYPERLIPIDEMIA SNOMED Code(s): 481569399 (6) Epistaxis Current Visit: Yes Status: Acute Code(s): R04.0 - EPISTAXIS SNOMED Code(s) : 143117653 (7) Chest pain Current Visit: Yes Status: Acute Code(s): R07.9 - CHEST PAIN, UNSPECIFIED SNOMED Code(s): 70394669 (8) Antiplatelet or antithrombotic long-term use Current Visit: Yes Status: Acute Code(s): Z79.02 - PROJECT PRODUCTION ENGINEER (CURRENT) USE OF ANTITHROMBOTICS/ANTIPLATELETS SNOMED Code(s): 113649442 Plan: Continue the rest and nasal balloon per Dr. Razo's plan. Cardiology is cleared her and recommended maximal medical therapy. She remains on check tubal insulin as she doesn't have a insulin pump catheter site with her. I will discontinue her pain pump at this time. I will order morphine 1 mg every 3 hours when necessary She'll be reevaluated in the next 24 hours.
[2018-01-16 12:15] LABS: Glucose,Whole Blood 239 mg/dL (75-99)
[2018-01-16] MEDS: MORPHINE SULFATE 4 MG/ML SYRINGE IVP PRN (14:27)
--- NOTE | 2018-01-16 15:18 | P.PN ---
Subjective Progress Note Date: 01/16/18 This is a 37-year-old female who was admitted to the hospital with epistaxis. She was evaluated by stress test for cardiac status which was positive. Patient had a cardiac catheterization and was found to have patent stent and mild triple-vessel disease. Advised the maximum medical therapy. Patient remains stable clinically. Her groin is soft without any hematoma. Patient is waiting to be released by his ENT. Follow-up with Dr. VC England Objective - Vital Signs Vital signs: Vital Signs Temp 99.0 F 01/16/18 11:00 Pulse 72 01/16/18 11:00 Resp 18 01/16/18 11:00 BP 139/80 01/16/18 11:00 Pulse Ox 98 01/16/18 11:00 Intake & Output 01/15/18 01/16/18 01/16/18 18:59 06:59 18:59 Intake Total 240 1020 Output Total 200 Balance 240 -200 1020 Weight 86.4 kg Intake: IV 300 0.9 @75 300 Oral 240 720 Output: Urine 200 Other: Voiding Method Toilet # Voids 2 2 - Exam GENERAL EXAM: Patient is alert and oriented and doesn't appear to be in any acute distress HEENT: Normocephalic. Normal reaction of pupils, equal size, normal range of extraocular motion. No erythema or exudates in the throat. NECK: No masses, no nuchal rigidity. CHEST: No chest wall deformity. LUNGS: Equal air entry with no crackles or wheeze. HEART: S1 and S2 normal with no audible mumurs or gallops. Regular rhythm, femorals equal on both sides.. ABDOMEN: No hepatosplenomegaly, normal bowel sounds, no guarding or rigidity. SKIN: No rashes CENTRAL NERVOUS SYSTEM: No focal deficits. EXTREMITIES: No cyanosis, clubbing or edema. - Labs CBC & Chem 7: 01/15/18 06:20 01/15/18 06:20 Labs: Abnormal Lab Results - Last 24 Hours (Table) 01/15/18 01/15/18 01/16/18 Range/Units 18:17 20:48 06:02 POC Glucose (mg/dL) 272 H 309 H 285 H (75-99) mg/dL 01/16/18 Range/Units 12:12 POC Glucose (mg/dL) 239 H (75-99) mg/dL Assessment and Plan (1) Positive cardiac stress test Current Visit: Yes Status: Acute Code(s): R94.39 - ABNORMAL RESULT OF OTHER CARDIOVASCULAR FUNCTION STUDY SNOMED Code(s): 845086656 (2) Atypical chest pain Current Visit: Yes Status: Acute Code(s): R07.89 - OTHER CHEST PAIN SNOMED Code(s): 621624166 (3) Mixed hyperlipidemia Current Visit: Yes Status: Acute Code(s): E78.2 - MIXED HYPERLIPIDEMIA SNOMED Code(s): 677831519 (4) Old MA (myocardial infarction) Current Visit: Yes Status: Acute Code(s): I25.2 - OLD MYOCARDIAL INFARCTION SNOMED Code(s): 7194936 Plan: Cardiac-starkey, patient is stable. May be discharged when cleared by ENT
[2018-01-16] MEDS ORDERED: METOCLOPRAMIDE 5 MG/ML 2 ML VIAL IVP STA (15:50)
[2018-01-16] MEDS ORDERED: LACTATED RINGERS 1,000 ML IV ONE (16:48)
[2018-01-16] MEDS ORDERED: MIDAZOLAM 2 MG/2 ML VIAL ONE (16:51)
[2018-01-16] MEDS ORDERED: DEXAMETHASONE SOD PHOS (MDV) 100 MG/10 ML VIAL ONE (16:51)
[2018-01-16] MEDS ORDERED: SUCCINYLCHOLINE CHLORIDE 100 MG/5 ML SYR IV ONE (16:51)
[2018-01-16] MEDS ORDERED: ONDANSETRON 4 MG/2 ML VIAL ONE (16:51)
[2018-01-16] MEDS ORDERED: PROPOFOL 10 MG/ML 20 ML VIAL IV ONE (16:51)
[2018-01-16] MEDS ORDERED: LIDOCAINE 1% INJ 10MG/ML (20 ML MDV) ONE (16:51)
[2018-01-16] MEDS ORDERED: fentaNYL (PF) 50 MCG/ML 2 ML AMP ONE (16:51)
[2018-01-16 18:21] LABS: Glucose,Whole Blood 264 mg/dL (75-99)
[2018-01-16 20:16] LABS: Glucose,Whole Blood 380 mg/dL (75-99)
[2018-01-16] MEDS: buPROPion XL 150 MG TAB.ER.24H PO SCH (20:27)
[2018-01-16] MEDS: ATORVASTATIN 80 MG TAB PO SCH (20:27)
[2018-01-16] MEDS: ALPRAZolam 0.5 MG TAB PO PRN (20:33)
[2018-01-17] MEDS: MORPHINE SULFATE 4 MG/ML SYRINGE IVP PRN ×4 (02:27→21:15)
[2018-01-17 06:15] LABS: Glucose,Whole Blood 363 mg/dL (75-99)
[2018-01-17] MEDS: NITROGLYCERIN OINT 1 INCH/GM PACKET TOPICAL SCH ×4 (06:15→23:44)
--- NOTE | 2018-01-17 06:18 | OP ---
OPERATIVE REPORT PREOPERATIVE DIAGNOSIS: Right anterior posterior nasal epistaxis. POSTOPERATIVE DIAGNOSIS: Right anterior posterior nasal epistaxis. ANESTHESIA: General. OPERATIVE PROCEDURE: Control of right anterior posterior epistaxis under general anesthesia using electrocautery. SURGEON: Dr. Razo. COMPLICATIONS: None. ESTIMATED BLOOD LOSS: Less than 25 mL. OPERATIVE PROCEDURE: The patient was placed on operating table in supine position. After uneventful induction and endotracheal intubation, satisfactory general anesthesia was obtained. Next the patient's face was draped in usual customary fashion. Initially, both the right and left nares were packed with cottonoids which had been saturated with Afrin nasal spray and these were positioned alongside the right and left inferior turbinates respectively. These cottonoids were left in place for approximately 10 minutes to achieve maximum vasoconstriction of the blood vessels as well as reduce the size of the turbinates. After 10 minutes, the cottonoids were removed and inspection of the right naris using the nasal speculum revealed several areas of bleeding. It appeared that most of these areas were created during the process of insertion of the nasal balloon in the emergency room. There was a large area of excoriation of mucous membrane along the mid to posterior septum on the right side as well as there appeared to be some significant abrasion/excoriation of mucous membrane on the right inferior turbinates anteriorly and slightly posteriorly. After placing an additional cottonoid in the right nostril and leaving it in place for an additional 10 minutes to achieve further basal constriction and reduction of the size of the turbinates, this cottonoid was removed. At this point, the bleeding sites were generously cauterized using the suction cautery on the appropriate setting. Under further evaluation one could see the original bleeding site which was a small area anteriorly and this also was cauterized. Unfortunately because of the patient's current status of being on anticoagulants called Brilinta, the mucous membranes of the nose were quite sensitive since that any pressure and any significant pressure would cause additional bleeding site. Therefore care had to be taken and even inserting the nasal speculums so as not to stir up any further bleeding. Once the bleeding sites have been cauterized and then the entire nasal passage was coated with Hemaderm hemostatic powder. This seemed to control the majority of the bleeding. However, there were still several minor bleeding sites and it was decided that rather than continue cauterizing the smaller sites, an 8 cm Merocel nasal tampon was subsequently inserted between the right inferior turbinate and the septum after being lubricated generously with bacitracin ointment. Having done this, inspection of the oropharynx did not reveal any bleeding down the posterior pharyngeal wall. Therefore, at this point, the procedure was terminated. Mustache dressing was applied. There were no intraoperative complications. The patient tolerated procedure well and was returned to the recovery room in satisfactory condition. Estimated blood loss less than 25 mL. MMODL / IJN: [id number] /
--- NOTE | 2018-01-17 06:18 | PN ---
PROGRESS NOTE DATE OF PROGRESS NOTE: 01/16/2018. SUBJECTIVE: Vital signs stable. The patient has no somatic complaints. She is not actively bleeding. OBJECTIVE: Inspection of the rhino rocket nasal balloon revealed it to be intact and dry. As previously discussed, the rhino rocket was completely deflated, both anterior and posterior balloons and it was decided to subsequently remove the entire device. It was expected that some bleeding would occur with removal. However, upon removing the device, a significant amount of bleeding occurred. The patient's right nares was sprayed multiple times with Afrin nasal spray, which eventually did slow the bleeding down to minimal. However, it was obvious that further measures would need to be taken. ASSESSMENT: Right epistaxis. PLAN: Because after removing the nasal balloon, the patient's bleeding reoccurred, I have elected to take the patient to surgery and to cauterize any bleeding areas under the right side of her nose under general anesthesia. This was discussed with the patient and her and they both agreed. Therefore, the patient will be taken to the operating theatre at approximately 6:00 pm tonight for cauterization of all bleeding sites in the right nostril under general anesthesia. MMODL / IJN: [id number] /
[2018-01-17] MEDS: INSULIN ASPART 100 UNIT/ML 1 ML 10 ML VIAL SQ SCH ×4 (06:24→21:21)
[2018-01-17 07:41] LABS: Basophils % (A) 0 %; Eosinophils % (A) 0 %; HCT 41.2 % (34.0-46.0); HGB 13.5 gm/dL (11.4-16.0); Lymphocytes # (A) 0.7 k/uL (1.0-4.8); Lymphocytes % (A) 6 %; MCH 30.5 pg (25.0-35.0); MCHC 32.8 g/dL (31.0-37.0); MCV 93.1 fL (80.0-100.0); Monocytes # (A) 0.3 k/uL (0-1.0); Monocytes % (A) 3 %; Neutrophils # (A) 10.6 k/uL (1.3-7.7); Neutrophils % (A) 91 %; Platelet Count 274 k/uL (150-450); RBC 4.43 m/uL (3.80-5.40); WBC 11.7 k/uL (3.8-10.6)
[2018-01-17 07:58] LABS: Anion Gap 13 mmol/L; Blood Urea Nitrogen 14 mg/dL (7-17); Calcium 9.6 mg/dL (8.4-10.2); Carbon Dioxide 26 mmol/L (22-30); Chloride 98 mmol/L (98-107); Glucose 332 mg/dL (74-99); Potassium 4.6 mmol/L (3.5-5.1); Sodium 137 mmol/L (137-145)
--- NOTE | 2018-01-17 08:59 | P.PN ---
Subjective Lucy c/o intermittent left arm pain "like when she had a heart attack" for the past several days. She came to the ER for Nosebleed intractable last night as well. The bleedin is controlled with packing. No Arm or chest pain in 12+ hrs. SHe had A OK 06/24/2017. She is followed by cardiology for this. Nosebleed is something new for her. Currently she denies Chest pain/SOB/N/V. 01/14/2018: ENT had seen her yesterday and felt that the packing could not be removed due to her use of Brillinta anticoagulant. He is complaining of ongoing pain. She does have a pain pump now from Dr. Razo for this. He will reevaluate her later today. Cardiology is planning a cardiac catheterization today. She is chest pain- free. She remains nothing by mouth. She denies any shortness of breath, nausea , vomiting. 01/15/2018: Cardiology performed a cardiac catheterization yesterday and it showed minimal disease. She remains on Brillinta. They're planning maximal medical therapy. ENT is planning on lowering the pressure on her basal packing today. Possibly removing it in 2-3 days. She remains on pain pump. She denies any complaints of chest pains, shortness of breath, nausea or vomiting this time. 01/16/2018: Patient is doing okay. She is only used her pain pump rarely overnight. She has 1 mg of morphine ordered with a temp lock out currently. She reports Dr. Razo deflated the Rhinostat nasal balloon by 50%. He will deflated again later today and possibly remove it tomorrow. Cardiology had cleared her recommended maximal medical therapy after cardiac catheterization. She denies any other complaints of chest pains, shortness of breath, nausea, or vomiting this time. 01/17/2018: Patient underwent right anterior and posterior lecture cautery under general anesthesia to control her epistaxis. Dr. Razo remove the nasal packing she started bleeding again. This morning she is sleepy. Wakes up formula and has no complaints other than pain at this time. Cotton nasal packing is now placed in her nares. Objective - Vital Signs Vital signs: Vital Signs Temp 98.4 F 01/17/18 04:00 Pulse 85 01/17/18 04:00 Resp 16 01/17/18 04:00 BP 133/80 01/17/18 04:00 Pulse Ox 95 01/17/18 04:00 Intake & Output 01/16/18 01/17/18 01/17/18 18:59 06:59 18:59 Intake Total 1520 720 Output Total 50 Balance 1470 720 Weight 85.4 kg Intake: IV 800 0.9 @75 300 Oral 720 720 Output: Estimated Blood Loss 50 Other: Voiding Method Toilet # Voids 2 2 - Exam General: The patient is awake and alert, in mild distress, and there is packing in her rightNare There is mild facial swelling. HEENT: There is now cotton packing bilaterally in the Nares Neck: The neck is supple, there is no thyromegaly, lymphadenopathy, tenderness or JVD. Cardiovascular: S1S2 is normal, There is a regular rate and rhythm. No murmur, rub or gallop is appreciated. Respiratory: Lungs are clear to auscultation bilaterally, respirations are non -labored, breath sounds are equal. Gastrointestinal: Soft, non-distended, non-tender abdomen without masses or organomegaly noted. There is no rebound or guarding present. Bowel sounds are unremarkable. Musculoskeletal: Normal ROM, no tenderness, There is no pedal edema. There is no calf tenderness or swelling. No cords were appreciated. Neurological: CN II-XII intact, there are no obvious motor or sensory deficits. Coordination appears grossly intact. Speech is normal. Skin: Skin is warm and dry and no rashes or lesions are noted. - Labs CBC & Chem 7: 01/17/18 07:01 01/17/18 07:01 Labs: Abnormal Lab Results - Last 24 Hours (Table) 01/16/18 01/16/18 01/16/18 Range/Units 12:12 18:19 20:14 WBC (3.8-10.6) k/uL Neutrophils # (1.3-7.7) k/uL Lymphocytes # (1.0-4.8) k/uL Glucose (74-99) mg/dL POC Glucose (mg/dL) 239 H 264 H 380 H (75-99) mg/dL 01/17/18 01/17/18 01/17/18 Range/Units 06:04 07:01 07:01 WBC 11.7 H (3.8-10.6) k/uL Neutrophils # 10.6 H (1.3-7.7) k/uL Lymphocytes # 0.7 L (1.0-4.8) k/uL Glucose 332 H (74-99) mg/dL POC Glucose (mg/dL) 363 H (75-99) mg/dL Assessment and Plan (1) Old OK (myocardial infarction) Current Visit: Yes Status: Acute Code(s): I25.2 - OLD MYOCARDIAL INFARCTION SNOMED Code(s): 0852349 (2) Insulin pump in place Current Visit: Yes Status: Acute Code(s): Z96.41 - PRESENCE OF INSULIN PUMP (EXTERNAL) (INTERNAL) SNOMED Code(s): 044949244 (3) Type 2 diabetes mellitus with hyperglycemia Current Visit: Yes Status: Acute Code(s): E11.65 - TYPE 2 DIABETES MELLITUS WITH HYPERGLYCEMIA SNOMED Code(s): 435210312093121 (4) Essential (primary) hypertension Current Visit: Yes Status: Acute Code(s): I10 - ESSENTIAL (PRIMARY) HYPERTENSION SNOMED Code(s): 85895885 (5) Mixed hyperlipidemia Current Visit: Yes Status: Acute Code(s): E78.2 - MIXED HYPERLIPIDEMIA SNOMED Code(s): 701678948 (6) Epistaxis Current Visit: Yes Status: Acute Code(s): R04.0 - EPISTAXIS SNOMED Code(s) : 695067244 (7) Chest pain Current Visit: Yes Status: Acute Code(s): R07.9 - CHEST PAIN, UNSPECIFIED SNOMED Code(s): 53762564 (8) Antiplatelet or antithrombotic long-term use Current Visit: Yes Status: Acute Code(s): Z79.02 - PIER HAND (CURRENT) USE OF ANTITHROMBOTICS/ANTIPLATELETS SNOMED Code(s): 889414404 Plan: Wait further recommendations from ENT.. Cardiology is cleared her and recommended maximal medical therapy. She remains on check tubal insulin as she doesn't have a insulin pump catheter site with her. She'll be reevaluated in the next 24 hours. Social work to aid her with Medicaid.
[2018-01-17] MEDS: ASPIRIN 81 MG PO SCH (09:44)
[2018-01-17] MEDS: METOPROLOL SUCCINATE (ER) 25 MG TAB.ER.24H PO SCH (09:44)
[2018-01-17] MEDS: LOSARTAN 25 MG TAB PO SCH (09:44)
[2018-01-17] MEDS: ISOSORBIDE MONONITRATE ER 15 MG TAB PO SCH (09:44)
[2018-01-17] MEDS: ESCITALOPRAM 20 MG TAB PO SCH (09:44)
[2018-01-17] MEDS: FAMOTIDINE 20 MG TAB PO SCH (09:44)
[2018-01-17] MEDS: CLINDAMYCIN 150 MG CAP PO SCH ×3 (09:44→21:21)
[2018-01-17] MEDS: TICAGRELOR 90 MG TAB PO SCH ×2 (09:45→21:21)
[2018-01-17 12:50] LABS: Glucose,Whole Blood 327 mg/dL (75-99)
[2018-01-17] MEDS: ALPRAZolam 0.5 MG TAB PO PRN (16:52)
[2018-01-17 17:19] LABS: Glucose,Whole Blood 351 mg/dL (75-99)
[2018-01-17 20:53] LABS: Glucose,Whole Blood 473 mg/dL (75-99)
[2018-01-17 20:53] LABS: Glucose,Whole Blood 518 mg/dL (75-99)
[2018-01-17] MEDS: buPROPion XL 150 MG TAB.ER.24H PO SCH (21:21)
[2018-01-17] MEDS: ATORVASTATIN 80 MG TAB PO SCH (21:21)
[2018-01-17 23:21] VITALS: PULSE 71
[2018-01-18] MEDS: MORPHINE SULFATE 4 MG/ML SYRINGE IVP PRN ×2 (03:24→08:07)
--- NOTE | 2018-01-18 05:33 | PN ---
PROGRESS NOTE DATE OF PROGRESS NOTE: 01/16/2018 SUBJECTIVE: Vital signs are stable. The patient is doing quite well. She is not having any significant pain or significant bleeding since her surgery. OBJECTIVE: HEENT: Patient is normocephalic. The nasal packing appears to be intact and quite dry. There is no evidence of any leakage of the pack from the right or left naris. The remainder of the head and neck exam is completely unremarkable. ASSESSMENT: Status post control of right anterior posterior epistaxis via intranasal packing with an 8 cm Merocel nasal tampon. PLAN: From an ENT standpoint, the patient can be discharged tomorrow, 01/18/2018, after I have seen her and examined the status of packing. Please do not discharge the patient before I see her. I will be around to see her before noon, before 12:00 noon tomorrow. Please do not discharge the patient before I see her and check the packing. I have asked the nurses to call my office on Thursday and schedule her for a followup appointment on 01/21/2018 and at that time I would decide whether to remove the packing or not. In addition to this, I will leave a prescription for an antibiotic, Cleocin 150 mg capsules #21 and she is to take one p.o. t.i.d. until gone for prophylaxis against a sinus infection. She will be given home going instructions with regards to avoiding attempting to blow her nose and also if she has to sneeze she should open her mouth and let the force of the sneeze come out through her mouth. All other instructions will be given to her when I see her tomorrow. I do not believe that she will require any type of narcotic pain medication and have advised her that she can take Tylenol, although she states that it does tend to interfere with her insulin pump. Obviously because of her being on the anticoagulant, she is not able to take aspirin or any of the NSAID. She will be off work until I see her in my office and I will give her a note if it is necessary at that time. In addition, I have advised her to rest and also strongly urged her not to smoke. She has done quite well without smoking and feels that she may be able to finally try and quit smoking. I have encouraged her to stop smoking completely in an effort to speed her healing as well as to certainly decrease the additional damage to her cardiovascular system considering the fact that she has [address] and is also a type 1 diabetic. MMODL / IJN: [id number] /
[2018-01-18] MEDS: NITROGLYCERIN OINT 1 INCH/GM PACKET TOPICAL SCH ×2 (06:19→09:54)
[2018-01-18 07:20] LABS: Glucose,Whole Blood 283 mg/dL (75-99)
[2018-01-18 07:55] VITALS: BP 108/74; RESP 16; TEMP 97.3
[2018-01-18] MEDS: TICAGRELOR 90 MG TAB PO SCH (08:00)
[2018-01-18] MEDS: ASPIRIN 81 MG PO SCH (08:00)
[2018-01-18] MEDS: ISOSORBIDE MONONITRATE ER 15 MG TAB PO SCH (08:00)
[2018-01-18] MEDS: LOSARTAN 25 MG TAB PO SCH (08:00)
[2018-01-18] MEDS: CLINDAMYCIN 150 MG CAP PO SCH (08:00)
[2018-01-18] MEDS: METOPROLOL SUCCINATE (ER) 25 MG TAB.ER.24H PO SCH (08:00)
[2018-01-18] MEDS: FAMOTIDINE 20 MG TAB PO SCH (08:00)
[2018-01-18] MEDS: ESCITALOPRAM 20 MG TAB PO SCH (08:00)
[2018-01-18] MEDS: INSULIN ASPART 100 UNIT/ML 1 ML 10 ML VIAL SQ SCH (08:01)
[2018-01-18 09:44] LABS: Basophils % (A) 0 %; Eosinophils # (A) 0.1 k/uL (0-0.7); Eosinophils % (A) 1 %; HCT 41.4 % (34.0-46.0); HGB 13.6 gm/dL (11.4-16.0); Lymphocytes # (A) 3.4 k/uL (1.0-4.8); Lymphocytes % (A) 31 %; MCH 30.4 pg (25.0-35.0); MCHC 32.9 g/dL (31.0-37.0); MCV 92.4 fL (80.0-100.0); Mean Platelet Volume 7.2; Monocytes # (A) 0.6 k/uL (0-1.0); Monocytes % (A) 6 %; Neutrophils # (A) 6.7 k/uL (1.3-7.7); Neutrophils % (A) 60 %; Platelet Count 339 k/uL (150-450); RBC 4.48 m/uL (3.80-5.40); RDW 12.4 % (11.5-15.5); WBC 11.2 k/uL (3.8-10.6)
--- NOTE | 2018-01-18 12:04 | P.DS ---
Providers Date of admission: 01/13/18 14:13 Expected date of discharge: 01/18/18 Attending physician: Jasen Hidalgo Consults: 01/13/18 00:47 Consult Physician Urgent Consulting Provider: Storm Álvarez Consult Reason/Comments: Left shoulder discomfort with cardiac history Do you want consulting provider notified?: Yes 01/13/18 13:08 Consult Physician Stat Consulting Provider: Ken Razo Consult Reason/Comments: epistaxis Do you want consulting provider notified?: Yes Primary care physician: [facility] Course: Lucy c/o intermittent left arm pain "like when she had a heart attack" for the past several days. She came to the ER for Nosebleed intractable last night as well. The bleedin is controlled with packing. No Arm or chest pain in 12+ hrs. SHe had A MT 06/24/2017. She is followed by cardiology for this. Nosebleed is something new for her. Currently she denies Chest pain/SOB/N/V. 01/14/2018: ENT had seen her yesterday and felt that the packing could not be removed due to her use of Brillinta anticoagulant. He is complaining of ongoing pain. She does have a pain pump now from Dr. Razo for this. He will reevaluate her later today. Cardiology is planning a cardiac catheterization today. She is chest pain- free. She remains nothing by mouth. She denies any shortness of breath, nausea , vomiting. 01/15/2018: Cardiology performed a cardiac catheterization yesterday and it showed minimal disease. She remains on Brillinta. They're planning maximal medical therapy. ENT is planning on lowering the pressure on her basal packing today. Possibly removing it in 2-3 days. She remains on pain pump. She denies any complaints of chest pains, shortness of breath, nausea or vomiting this time. 01/16/2018: Patient is doing okay. She is only used her pain pump rarely overnight. She has 1 mg of morphine ordered with a temp lock out currently. She reports Dr. Razo deflated the Rhinostat nasal balloon by 50%. He will deflated again later today and possibly remove it tomorrow. Cardiology had cleared her recommended maximal medical therapy after cardiac catheterization. She denies any other complaints of chest pains, shortness of breath, nausea, or vomiting this time. 01/17/2018: Patient underwent right anterior and posterior lecture cautery under general anesthesia to control her epistaxis. Dr. Razo remove the nasal packing she started bleeding again. This morning she is sleepy. Wakes up formula and has no complaints other than pain at this time. Cotton nasal packing is now placed in her nares. 01/18/2018: Patient seen and examined on rounds with Dr. Hidalgo. Patient is awake and alert. Denies chest pain or pressure. Denies shortness of breath. Patient with nasal packing in place. Patient was prescribed Clindamycin at the time of discharge per Dr. Razo. Cardiology also started the patient on Imdur. Prescriptions were sent to the patients preferred pharmacy. Blood sugars are elevated. She remains on novolog sliding scale. She will resume her insulin pump today when she is discharged home. The patient is deemed stable for discharge per Dr. Hidalgo after she is cleared by Dr. Razo. DISCHARGE DIAGNOSIS: Epistaxis, s/p right anterior and posterior cautery to control bleeding History of myocardial infarction with previous stent placement Type 2 diabetes mellitus, patient utilizes insulin pump Hyperglycemia Hyperlipidemia Chest pain, s/p cardiac cath revealing mild disease and patent stents, no further episodes of chest pain Nurse practitioner note has been reviewed by physician. Signing provider agrees with the documented findings, assessment, and plan of care. Plan - Discharge Summary Discharge Rx Participant: Yes New Discharge Prescriptions: New Isosorbide Mononitrate ER [Imdur] 15 mg PO DAILY #30 dose Clindamycin [Cleocin] 150 mg PO TID #21 capsule NS Continue Dextroamphetamine/Amphetamine [Adderall Xr] 30 mg PO DAILY Aspirin 81 mg PO DAILY #30 chew Atorvastatin [Lipitor] 80 mg PO HS #30 tab Losartan [Cozaar] 12.5 mg PO DAILY #30 tab Ticagrelor [Brilinta] 90 mg PO BID #60 tab Famotidine [Pepcid] 20 mg PO DAILY #30 tablet buPROPion HCL [Wellbutrin XL] 150 mg PO DAILY L.acidoph,Paracasei, B.lactis [Probiotic] 1 cap PO DAILY Insulin Aspart (For Pump) [NovoLOG (For Pump)] 0.01 unit SQ-PUMP CONTINUOUS Metoprolol Succinate (ER) [Toprol XL] 25 mg PO DAILY Escitalopram [Lexapro] 20 mg PO DAILY Discharge Medication List Dextroamphetamine/Amphetamine [Adderall Xr] 30 mg PO DAILY 06/19/14 [History] Aspirin 81 mg PO DAILY #30 chew 06/24/17 [Rx] Atorvastatin [Lipitor] 80 mg PO HS #30 tab 06/24/17 [Rx] Famotidine [Pepcid] 20 mg PO DAILY #30 tablet 06/24/17 [Rx] Losartan [Cozaar] 12.5 mg PO DAILY #30 tab 06/24/17 [Rx] Ticagrelor [Brilinta] 90 mg PO BID #60 tab 06/24/17 [Rx] Escitalopram [Lexapro] 20 mg PO DAILY 01/12/18 [History] Insulin Aspart (For Pump) [NovoLOG (For Pump)] 0.01 unit SQ-PUMP CONTINUOUS [History] L.acidoph,Paracasei, B.lactis [Probiotic] 1 cap PO DAILY 01/12/18 [History] Metoprolol Succinate (ER) [Toprol XL] 25 mg PO DAILY 01/12/18 [History] buPROPion HCL [Wellbutrin XL] 150 mg PO DAILY 01/12/18 [History] Isosorbide Mononitrate ER [Imdur] 15 mg PO DAILY #30 dose 01/15/18 [Rx] Clindamycin [Cleocin] 150 mg PO TID #21 capsule NS 01/18/18 [Rx] Follow up Appointment(s)/Referral(s): Ken Razo MD [STAFF PHYSICIAN] - 01/21/18 12:00 pm Jasen Hidalgo MD [Primary Care Provider] - 01/20/18 9:45 am Jennifer England MD [STAFF PHYSICIAN] - 1 Week (Office will call you with appointment time) Patient Instructions/Handouts: Nosebleed (GEN) Activity/Diet/Wound Care/Special Instructions: If you have to sneeze, sneeze with your mouth open to decrease pressure in nose. Change external nose dressing prn and daily, if no drainage no external dressing needed. You may wash your face, be careful around string for internal nasal packing. Discharge Disposition: HOME SELF-CARE
--- NOTE | 2018-01-18 15:54 | PN ---
PROGRESS NOTE DATE OF SERVICE: 01/18/2018. SUBJECTIVE: Vital signs are stable. Patient has no somatic complaints. She has not had any further bleeding from the right nostril, which is packed with a Merocel nasal tampon. OBJECTIVE: Inspection of the right naris reveals that the nasal tampon is dry and intact. Inspection of the oropharynx does not reveal any bleeding down the posterior pharyngeal wall. The remainder of the head and neck exam is completely unremarkable. ASSESSMENT: Right anterior posterior epistaxis, controlled via right intranasal Merocel nasal tampon. PLAN: From an ENT standpoint, the patient can be discharged today. She has been given all the necessary and appropriate instructions noted before in previous progress notes. She will also be given a prescription for Cleocin capsules 150 mg p.o. t.i.d. #21. She has been advised that if she develops any loose stools or diarrhea while on the Cleocin, she stop the medication immediately and call my office. I would not give her nor do I feel she needs any type of pain medication because she can take over-the- counter pain medications such as Tylenol. She has an appointment to be seen in my office on 01/21/2018 for a follow-up visit. I want to take this opportunity to thank you for allowing me to us assist you in the care of your patient. If I could be of any further assistance in the future, please feel free to call my office. RONAK / RUDDY: [id number] /
--- NOTE | 2018-01-19 11:19 | CDI ---
Documentation Clarification Form Date: 01/19/2018 12:00:00 AM From: SHAGGY Vital; Amalia Pelaez Help Desk Agent Phone: If you have a question about this query, please contact Amalia Pelaez Help Desk Agent at [phone] between 8am and 5pm. Admit Date: 01/13/2018 2:13:00 PM Patient Name: Lucy Gomez Visit Number: [id number] Discharge Date: 01/18/2018 ATTENTION: The Clinical Documentation Specialists (CDI) and [facility] Coding Staff appreciate your assistance in clarifying documentation. Please respond to the clarification below the line at the bottom and electronically sign. The CDI & [facility] Coding staff will review the response and follow-up if needed. Please note: Queries are made part of the Legal Health Record. If you have any questions, please contact the author of this message via ITS. Dr. Jasen Hidalgo Patient came to the ED with epitaxis and left arm pain and admitted to observation. Per order dated 01/14, she was made inpatient. In your professional opinion, can you please clarify the reason Ms. Gomez was made inpatient status? Epitaxis Chest pain Other, please specify ___uncontrolled bleeding from epistaxis h/o myocardial infaction ,chest pain Unable to determine MTDD
== END 2018-01-18 11:35 | disposition home or self-care (01) | DRG 264 ==
LOC: EC 22:14 → 3OBS 01-13 00:47 → OBSVTOIN 01-13 14:13 → 6SEL 01-15 20:54 → 4MS4W 01-17 11:19
PROVIDERS: ADMIT Family Medicine; ATTEND Family Medicine
PROC: 2Y41X5Z Packing of Nasal Region using Packing Material (ICD-10-PCS; principal; 2018-01-12)
PROC: 4A023N7 Measurement of Cardiac Sampling and Pressure, Left Heart, Percutaneous Approach (ICD-10-PCS; 2018-01-14)
PROC: B2111ZZ Fluoroscopy of Multiple Coronary Arteries using Low Osmolar Contrast (ICD-10-PCS; 2018-01-14)
PROC: B2151ZZ Fluoroscopy of Left Heart using Low Osmolar Contrast (ICD-10-PCS; 2018-01-14)
PROC: 0W3 Anatomical Regions, General, Control (ICD-10-PCS; 2018-01-17)
DX: R07.9 Chest pain, unspecified (principal); D68.32 Hemorrhagic disorder due to extrinsic circulating anticoagulants; R04.0 Epistaxis; T45.515A Adverse effect of anticoagulants, initial encounter; E11.65 Type 2 diabetes mellitus with hyperglycemia; E78.2 Mixed hyperlipidemia; F17.200 Nicotine dependence, unspecified, uncomplicated; F32.9 Major depressive disorder, single episode, unspecified; F41.9 Anxiety disorder, unspecified; F90.9 Attention-deficit hyperactivity disorder, unspecified type; G25.81 Restless legs syndrome; I10 Essential (primary) hypertension; I25.2 Old myocardial infarction; I25.10 Atherosclerotic heart disease of native coronary artery without angina pectoris; Z79.4 Long term (current) use of insulin; Z79.82 Long term (current) use of aspirin; Z79.899 Other long term (current) drug therapy; Z95.5 Presence of coronary angioplasty implant and graft; Z96.41 Presence of insulin pump (external) (internal)
CPT/HCPCS: 30901; 36415; 71046; 78452; 80048; 80053; 80061; 82550; 82553; 83036; 83735; 84484; 85025; 85610; 85730; 93005; 93017; 93306; 93458; 94760; 96374; 99284

== ENCOUNTER → 2018-02-03 | Outpatient (CLI) | payer BC ==
--- NOTE | 2018-02-03 09:06 | CT ---
EXAMINATION TYPE: CT sinus wo con DATE OF EXAM: 02/03/2018 COMPARISON: NONE HISTORY: Acute sinusitis CT DLP: 673.70 mGycm. Automated Exposure Control for Dose Reduction was Utilized. TECHNIQUE: CT scan of the sinuses is performed without contrast, axial images are obtained, coronal r eformatted images are also reviewed. FINDINGS: There is a small air-fluid level within the dependent right maxillary sinus. Antrostomy def ects from prior paranasal sinus surgery are seen. Scant mucosal thickening is seen on the coronal nitin ges within the left maxillary sinus dependently. The surgically altered ethmoid sinuses, and sphenoid sinuses are well aerated as are the frontal sinuses. The visualized portions of the mastoid air cell s are also well aerated. No middle ear cavity fluid. Frontal recesses are patent. The surgically wide eros ostiomeatal complexes are on the coronal images. Nasal septum remains midline. No annika bullosa or Saundra cells. Globes are symmetric. IMPRESSION: Mild bilateral maxillary sinus mucosal thickening likely representing acute sinusitis, ri ght greater than left with postoperative changes of the paranasal sinuses and no ostiomeatal occlusio n. No annika bullosa, no Saundra cells. Frontal recesses are patent.
== END | disposition home or self-care (01) ==
LOC: RADCTMAIN 08:38
PROVIDERS: ATTEND Otolaryngology
DX: J34.89 Other specified disorders of nose and nasal sinuses (principal); Z98.890 Other specified postprocedural states
CPT/HCPCS: 70486

== ENCOUNTER 2018-10-17 08:08 | Emergency (ER) | payer BC ==
[2018-10-17 08:14] VITALS: TEMP 97.9
[2018-10-17] MEDS ORDERED: ONDANSETRON 4 MG/2 ML VIAL IVP STA (08:18)
[2018-10-17] MEDS ORDERED: SODIUM CHLORIDE 0.9% 2,000 ML IV STA (08:18)
[2018-10-17] MEDS ORDERED: MORPHINE SULFATE 4 MG/ML SYRINGE IVP STA (08:32)
--- NOTE | 2018-10-17 08:41 | ED ---
Abdominal Pain HPI - General Chief Complaint: Abdominal Pain Stated Complaint: vomiting Time Seen by Provider: 10/17/18 08:17 Source: patient, RN notes reviewed Mode of arrival: wheelchair Limitations: no limitations - History of Present Illness Initial Comments: 37-year-old female sent emergency Department with chief complaint of abdominal pain, nausea and vomiting. Patient states this will cover her out of her sleep. She states she has mid abdominal pain with intractable vomiting. Patient states that she has a known diabetic with insulin pump and has not checked her blood sugar. Patient denies any diarrhea constipation or dysuria no hematuria denies fevers or chills no chest pain or shortness of breath. Patient said no sick contacts. No history of pancreatitis. - Related Data Home Medications Medication Instructions Recorded Confirmed Dextroamphetamine/Amphetamine 30 mg PO DAILY 06/19/14 01/12/18 [Adderall Xr] Escitalopram [Lexapro] 20 mg PO DAILY 01/12/18 01/12/18 Insulin Aspart (For Pump) [NovoLOG 0.01 unit SQ-PUMP CONTINUOUS 01/12/18 (For Pump)] L.acidoph,Paracasei, B.lactis 1 cap PO DAILY 01/12/18 01/12/18 [Probiotic] Metoprolol Succinate (ER) [Toprol 25 mg PO DAILY 01/12/18 01/12/18 XL] buPROPion HCL [Wellbutrin XL] 150 mg PO DAILY 01/12/18 01/12/18 Previous Rx's Medication Instructions Recorded Aspirin 81 mg PO DAILY #30 chew 06/24/17 Atorvastatin [Lipitor] 80 mg PO HS #30 tab 06/24/17 Famotidine [Pepcid] 20 mg PO DAILY #30 tablet 06/24/17 Losartan [Cozaar] 12.5 mg PO DAILY #30 tab 06/24/17 Ticagrelor [Brilinta] 90 mg PO BID #60 tab 06/24/17 Isosorbide Mononitrate ER [Imdur] 15 mg PO DAILY #30 dose 01/15/18 Clindamycin [Cleocin] 150 mg PO TID #21 capsule NS 01/18/18 Ondansetron Odt [Zofran Odt] 4 mg PO Q8HR PRN #10 tab 10/17/18 Allergies Allergy/AdvReac Type Severity Reaction Status Date / Time cefaclor [From Ceclor] Allergy Unknown Verified 10/17/18 08:14 Cephalosporins Allergy Unknown Verified 10/17/18 08:14 hydromorphone HCl Allergy Unknown Verified 10/17/18 08:14 [From Dilaudid] lithium [Ferris] Allergy Unknown Verified 10/17/18 08:14 oxcarbazepine Allergy Unknown Verified 10/17/18 08:14 [From Trileptal] phenytoin sodium Allergy Unknown Verified 10/17/18 08:14 [From Dilantin] phenytoin sodium extended Allergy Unknown Verified 10/17/18 08:14 [From Dilantin] Sulfa (Sulfonamide Allergy Unknown Verified 10/17/18 08:14 Antibiotics) sulfamethoxazole Allergy Unknown Verified 10/17/18 08:14 [From Bactrim] trimethoprim [From Bactrim] Allergy Unknown Verified 10/17/18 08:14 Review of Systems ROS Statement: Those systems with pertinent positive or pertinent negative responses have been documented in the HPI. ROS Other: All systems not noted in ROS Statement are negative. Past Medical History Past Medical History: Diabetes Mellitus, Hyperlipidemia, Hypertension, Myocardial Infarction (ND) Additional Past Medical History / Comment(s): neuropathy, restless leg syndrome Last Myocardial Infarction Date:: May 2017 History of Any Multi-Drug Resistant Organisms: None Reported Past Surgical History: Section, Heart Catheterization With Stent, Tubal Ligation Additional Past Surgical History / Comment(s): sinues surgery, right breast cyst removal, 14 cysts taken of ovaries and tubes Past Anesthesia/Blood Transfusion Reactions: No Reported Reaction Date of Last Stent Placement:: May 2017 Past Psychological History: ADD/ADHD, Anxiety, Depression Smoking Status: Current some day smoker Past Alcohol Use History: None Reported Past Drug Use History: None Reported General Exam Limitations: no limitations General appearance: alert, in no apparent distress Head exam: Present: atraumatic, normocephalic, normal inspection Eye exam: Present: normal appearance, PERRL, EOMI. Absent: scleral icterus, conjunctival injection, periorbital swelling ENT exam: Present: normal exam, normal oropharynx, mucous membranes moist Neck exam: Present: normal inspection. Absent: tenderness, meningismus, lymphadenopathy Respiratory exam: Present: normal lung sounds bilaterally. Absent: respiratory distress, wheezes, rales, rhonchi, stridor Cardiovascular Exam: Present: regular rate, normal rhythm, normal heart sounds. Absent: systolic murmur, diastolic murmur, rubs, gallop, clicks GI/Abdominal exam: Present: soft, tenderness (Moderate mid abdominal tenderness , epigastric tenderness), normal bowel sounds. Absent: distended, guarding, rebound, rigid Back exam: Absent: CVA tenderness (R), CVA tenderness (L) Neurological exam: Present: alert, oriented X3 Skin exam: Present: warm, dry, intact, normal color. Absent: rash Course Vital Signs 10/17/18 08:11 Temperature 97.9 F Pulse Rate 98 Respiratory 16 Rate Blood Pressure 145/95 O2 Sat by Pulse 98 Oximetry Medical Decision Making - Medical Decision Making 37-year-old female presented for abdominal pain, nausea vomiting. Patient did have lab work, CT. Patient shows evidence of enteritis with moderate stool burden on the left side. Patient also has some changes on her uterus. Patient was informed of these states that she's had multiple procedures and cyst removal in the past. She will follow-up with [facility]. Patient has improved after antiemetics and pain medication. Patient discharged with Zofran return parameters were discussed. - Lab Data Result diagrams: 10/17/18 08:29 10/17/18 08:29 Lab Results 10/17/18 10/17/18 10/17/18 Range/Units 08:29 08:29 09:31 WBC 11.6 H (3.8-10.6) k/uL RBC 5.13 (3.80-5.40) m/uL Hgb 15.8 (11.4-16.0) gm/dL Hct 47.5 H (34.0-46.0) % MCV 92.7 (80.0-100.0) fL MCH 30.8 (25.0-35.0) pg MCHC 33.2 (31.0-37.0) g/dL RDW 12.1 (11.5-15.5) % Plt Count 293 (150-450) k/uL Neutrophils % 81 % Lymphocytes % 10 % Monocytes % 6 % Eosinophils % 1 % Basophils % 0 % Neutrophils # 9.4 H (1.3-7.7) k/uL Lymphocytes # 1.2 (1.0-4.8) k/uL Monocytes # 0.7 (0-1.0) k/uL Eosinophils # 0.1 (0-0.7) k/uL Basophils # 0.0 (0-0.2) k/uL Sodium 138 (137-145) mmol/L Potassium 4.3 (3.5-5.1) mmol/L Chloride 105 (98-107) mmol/L Carbon Dioxide 22 (22-30) mmol/L Anion Gap 11 mmol/L BUN 29 H (7-17) mg/dL Creatinine 0.54 (0.52-1.04) mg/dL Est GFR (CKD-EPI)AfAm >90 (>60 ml/min/1.73 sqM) Est GFR (CKD-EPI)NonAf >90 (>60 ml/min/1.73 sqM) Glucose 310 H (74-99) mg/dL Calcium 8.6 (8.4-10.2) mg/dL Total Bilirubin 0.6 (0.2-1.3) mg/dL AST 22 (14-36) U/L ALT 54 H (9-52) U/L Alkaline Phosphatase 120 (38-126) U/L Total Protein 6.7 (6.3-8.2) g/dL Albumin 3.9 (3.5-5.0) g/dL Amylase <30 L (30-110) U/L Lipase 61 (23-300) U/L Urine Color Light Yellow Urine Appearance Clear (Clear) Urine pH 5.5 (5.0-8.0) Ur Specific [place] 1.025 (1.001-1.035) Urine Protein Negative (Negative) Urine Glucose (UA) 4+ H (Negative) Urine Ketones 2+ H (Negative) Urine Blood Negative (Negative) Urine Nitrite Negative (Negative) Urine Bilirubin Negative (Negative) Urine Urobilinogen <2.0 (<2.0) mg/dL Ur Leukocyte Esterase Negative (Negative) Acetone, Qual Negative (Negative) Disposition Clinical Impression: Gastroenteritis, Abdominal pain, Diabetes Disposition: HOME SELF-CARE Condition: Stable Instructions (If sedation given, give patient instructions): Abdominal Pain (ED ) Additional Instructions: Please return to the Emergency Department if symptoms worsen or any other concerns. Prescriptions: Ondansetron Odt [Zofran Odt] 4 mg PO Q8HR PRN #10 tab PRN Reason: Nausea Is patient prescribed a controlled substance at d/c from ED?: No Referrals: Jasen Hidalgo MD [Primary Care Provider] - 1-2 days Time of Disposition: 10:21
[2018-10-17 09:04] LABS: ALT 54 U/L (9-52); AST 22 U/L (14-36); Albumin 3.9 g/dL (3.5-5.0); Alkaline Phosphatase 120 U/L (38-126); Amylase <30 U/L (30-110); Anion Gap 11 mmol/L; Blood Urea Nitrogen 29 mg/dL (7-17); Calcium 8.6 mg/dL (8.4-10.2); Carbon Dioxide 22 mmol/L (22-30); Chloride 105 mmol/L (98-107); Glucose 310 mg/dL (74-99); Lipase 61 U/L (23-300); Potassium 4.3 mmol/L (3.5-5.1); Sodium 138 mmol/L (137-145); Total Bilirubin 0.6 mg/dL (0.2-1.3); Total Protein 6.7 g/dL (6.3-8.2)
[2018-10-17 09:07] LABS: Basophils % (A) 0 %; Eosinophils # (A) 0.1 k/uL (0-0.7); Eosinophils % (A) 1 %; HCT 47.5 % (34.0-46.0); HGB 15.8 gm/dL (11.4-16.0); Lymphocytes # (A) 1.2 k/uL (1.0-4.8); Lymphocytes % (A) 10 %; MCH 30.8 pg (25.0-35.0); MCHC 33.2 g/dL (31.0-37.0); MCV 92.7 fL (80.0-100.0); Mean Platelet Volume 6.4; Monocytes # (A) 0.7 k/uL (0-1.0); Monocytes % (A) 6 %; Neutrophils # (A) 9.4 k/uL (1.3-7.7); Neutrophils % (A) 81 %; Platelet Count 293 k/uL (150-450); RBC 5.13 m/uL (3.80-5.40); RDW 12.1 % (11.5-15.5); WBC 11.6 k/uL (3.8-10.6)
--- NOTE | 2018-10-17 09:28 | XR ---
EXAMINATION TYPE: XR KUB DATE OF EXAM: 10/17/2018 CLINICAL DATA: 37-year-old female abdominal pain and vomiting, [facility] COMPARISON: None FINDINGS: Lung bases are clear. No evidence for free intraperitoneal air. Moderate stool in the left side of the abdomen. Air-fluid levels are present within small bowel centr ally in the abdomen and also throughout the right hemicolon. No dilated bowel loops are seen. IMPRESSION: 1. Multiple small air-fluid levels centrally in the abdomen and also throughout the right hemicolon. Findings suggest ileus or enteritis. 2. Overall nonobstructive bowel gas pattern at this time. No free air. Moderate stool in the left s wendy of the colon.
[2018-10-17 09:42] LABS: Appearance,Urine Clear (Clear); Bilirubin,Urine Negative (Negative); Blood,Urine Negative (Negative); Color,Urine Light Yellow; Glucose,Urine (UA) 4+ (Negative); Leukocyte Esterase,Urine Negative (Negative); Nitrite,Urine Negative (Negative); PH, Urine 5.5 (5.0-8.0); Protein,Urine Negative (Negative); Specific Gravity,Urine 1.025 (1.001-1.035); Urobilinogen,Urine <2.0 mg/dL (<2.0)
[2018-10-17 10:04] LABS: Ketones,Urine 2+ (Negative)
--- NOTE | 2018-10-17 10:11 | CT ---
EXAMINATION TYPE: CT abdomen pelvis w con DATE OF EXAM: 10/17/2018 COMPARISON: 12/04/2011 HISTORY: 37-year-old female with abdominal pain and vomiting TECHNIQUE: Contiguous axial scanning of the abdomen and pelvis following administration of 100 ml Iso sheba 300 IV contrast. Delayed images through the kidneys and coronal/sagittal reconstructions perform ed. CT DLP: 1264.9 mGycm Automated exposure control for dose reduction was used. FINDINGS: Heart normal size without pericardial effusion. Dependent atelectasis lower lungs. No pleural effusio n. Small amount of focal fat along the anterior falciform ligament. No biliary ductal dilatation. Portal venous system is patent. Gallbladder, adrenal glands, kidneys, spleen with anterior and hilar splenules, and pancreas show no gross abnormal mobility. Stable ectatic vasculature left periaortic region as compared to 2011. No dilated small bowel, free fluid, or free air. Normal appendix. Some prominent fluid filled small bowel loops are present in the lower abdomen. Moderate stool wordin g. No pericolonic inflammatory change. Uterus is visualized. There is a focal 9 mm cystic area at the right uterine fundus. Follicular rodriguez e in the ovaries. No abnormal fluid collection in the pelvis or pelvic lymphadenopathy. Bones: No osseous destructive process. IMPRESSION: 1. FOCAL 9 MM CYSTIC AREA AT THE RIGHT UTERINE FUNDUS OF UNCERTAIN ETIOLOGY AND QUESTIONABLE CLINICAL SIGNIFICANCE. POSSIBLE NONSPECIFIC MYOMETRIAL CYST OR SEQUELA OF ADENOMYOSIS. FOCAL HEMATOMETRA IS A LSO A POSSIBILITY IF THERE IS HISTORY OF PRIOR ENDOMETRIAL ABLATION. 2. NORMAL APPENDIX. 3. PROMINENT FLUID-FILLED SMALL BOWEL LOOPS IN THE LOWER ABDOMEN. FINDING COULD REPRESENT ILEUS OR EN TERITIS. 4. MODERATE STOOL BURDEN.
[2018-10-17] MEDS ORDERED: ONDANSETRON 4 MG ODT STARTER PACK 2 TAB BTL PO STA (10:20)
[2018-10-17 10:46] VITALS: BP 121/77; PULSE 84; RESP 17
== END 2018-10-17 10:46 | disposition home or self-care (01) ==
LOC: EC 08:08
DX: K52.9 Noninfective gastroenteritis and colitis, unspecified (principal); E11.9 Type 2 diabetes mellitus without complications; N85.8 Other specified noninflammatory disorders of uterus; I10 Essential (primary) hypertension; I25.2 Old myocardial infarction; F90.9 Attention-deficit hyperactivity disorder, unspecified type; F41.9 Anxiety disorder, unspecified; F32.9 Major depressive disorder, single episode, unspecified; F17.200 Nicotine dependence, unspecified, uncomplicated; Z98.890 Other specified postprocedural states; Z95.5 Presence of coronary angioplasty implant and graft; Z98.51 Tubal ligation status; Z79.4 Long term (current) use of insulin; Z79.899 Other long term (current) drug therapy; Z88.1 Allergy status to other antibiotic agents; Z88.5 Allergy status to narcotic agent; Z88.8 Allergy status to other drugs, medicaments and biological substances; Z88.2 Allergy status to sulfonamides
CPT/HCPCS: 99284; 96374; 96375; 96361 ×2; 36415; 80053; 82150; 82009; 83690; 85025; 81003; 74018; 74177; J2270; J2405; S0119; Q9967

== ENCOUNTER → 2018-10-19 | Outpatient (CLI) | payer BC ==
--- NOTE | 2018-10-19 15:42 | XR ---
EXAMINATION TYPE: XR chest 2V DATE OF EXAM: 10/19/2018 COMPARISON: 01/13/2018 TECHNIQUE: PA and lateral views submitted. HISTORY: Dry cough FINDINGS: The lungs are clear and there is no pneumothorax, pleural effusion, or focal pneumonia. Mild hypert rophic change of the vertebral column. IMPRESSION: 1. No acute process.
[2018-10-19 16:12] LABS: Basophils % (A) 0 %; Eosinophils % (A) 0 %; HCT 45.3 % (34.0-46.0); HGB 14.7 gm/dL (11.4-16.0); Lymphocytes # (A) 2.5 k/uL (1.0-4.8); Lymphocytes % (A) 17 %; MCH 30.8 pg (25.0-35.0); MCHC 32.6 g/dL (31.0-37.0); MCV 94.5 fL (80.0-100.0); Mean Platelet Volume 7.3; Monocytes # (A) 0.8 k/uL (0-1.0); Monocytes % (A) 6 %; Neutrophils # (A) 11.1 k/uL (1.3-7.7); Neutrophils % (A) 75 %; Platelet Count 269 k/uL (150-450); RBC 4.79 m/uL (3.80-5.40); RDW 12.3 % (11.5-15.5); WBC 14.8 k/uL (3.8-10.6)
== END ==
LOC: RADXRMAIN 15:19
PROVIDERS: ATTEND Nurse Practitioner Family
DX: R05 Cough (principal); R50.9 Fever, unspecified; J20.9 Acute bronchitis, unspecified
CPT/HCPCS: 71046; 85025

== ENCOUNTER → 2018-10-20 | Outpatient (CLI) | payer BC ==
[2018-10-20 16:11] LABS: Blood Urea Nitrogen 18 mg/dL (7-17)
--- NOTE | 2018-10-20 17:44 | CT ---
EXAMINATION TYPE: CT angio chest DATE OF EXAM: 10/20/2018 5:32 PM COMPARISON: None HISTORY: SOB, cough CT DLP: 595 mGycm Automated exposure control for dose reduction was used. CONTRAST: CTA scan of the thorax is performed with IV Contrast, patient injected with 100 mL of Isovue 370, pul monary embolism protocol. There are 3-D post processed images.. FINDINGS: The lungs are clear of infiltrate. There is no evidence of a pulmonary mass. There is no mediastinal adenopathy. Thoracic aorta shows no dissection. 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 There is no pericardial effusion. There are no hilar masses. There is normal contrast opacification of the pulmonary arteries. There are no filling defects. There is no pleural effusion. There is no bony destructive process. Thoracic spine appears intact. Up per abdominal soft tissues are unremarkable. IMPRESSION: NEGATIVE CT ANGIOGRAM OF THE CHEST. NO EVIDENCE OF PULMONARY EMBOLISM.
== END ==
LOC: RADCTMAIN 15:28
PROVIDERS: ATTEND Family Medicine
DX: R06.02 Shortness of breath (principal); R05 Cough
CPT/HCPCS: 82565; 84520; 71275; 36415; Q9967

== ENCOUNTER 2019-02-11 22:07 | Observation (INO) | payer BC, OTHER ==
--- NOTE | 2019-02-11 22:26 | ED ---
Chest Pain HPI - General Chief Complaint: Chest Pain Stated Complaint: Chest Pain Hx STEMI Time Seen by Provider: 02/11/19 22:24 Source: patient Mode of arrival: wheelchair Limitations: no limitations - History of Present Illness Initial Comments: Lucy is a 38-year-old female with history of known coronary artery disease status post STEMI in 2017 stenting, patient has a history of hypertension, hyperlipidemia and poorly controlled diabetes. Patient is presenting to the emergency department today for evaluation of chest pain that began around 6:30 PM when she got to work this evening. Chest pain is described as a left-sided chest pressure radiating to her left arm similar in character to previous [place]. Patient reports that she was hoping the pain would resolve with time however persisted which prompted her to come to the ER for evaluation. Patient reports she is been compliant with her home medications including daily aspirin however she's not seen her neuro ophthalmologist in nearly a year. She does report that her insulin pump is been malfunctioning her glucose is been poorly controlled. Patient also states that on Thursday last week she had chest pain which required her to take nitro. MD Complaint: chest pain -: hour(s) Onset: during exertion Pain Location: substernal, left chest Pain Radiation: LUE Severity: moderate Quality: tightness, aching, heaviness Consistency: constant Improves With: rest Worsens With: nothing Treatments Prior to Arrival: aspirin - Related Data Home Medications Medication Instructions Recorded Confirmed Dextroamphetamine/Amphetamine 30 mg PO DAILY 06/19/14 02/11/19 [Adderall Xr] Escitalopram [Lexapro] 20 mg PO DAILY 01/12/18 02/11/19 Insulin Aspart (For Pump) [NovoLOG 0.01 unit SQ-PUMP CONTINUOUS 01/12/18 02/11/19 (For Pump)] L.acidoph,Paracasei, B.lactis 1 cap PO DAILY 01/12/18 02/11/19 [Probiotic] Metoprolol Succinate (ER) [Toprol 25 mg PO DAILY 01/12/18 02/11/19 XL] buPROPion HCL [Wellbutrin XL] 150 mg PO DAILY 01/12/18 02/11/19 Atorvastatin [Lipitor] 80 mg PO DAILY 02/11/19 02/11/19 Cetirizine HCl [Zyrtec] 10 mg PO DAILY 02/11/19 02/11/19 Gabapentin [Neurontin] 300 mg PO TID 02/11/19 02/11/19 Ubidecarenone [Co Q-10] 100 mg PO DAILY 02/11/19 02/11/19 Previous Rx's Medication Instructions Recorded Aspirin 81 mg PO DAILY #30 chew 06/24/17 Famotidine [Pepcid] 20 mg PO DAILY #30 tablet 06/24/17 Losartan [Cozaar] 12.5 mg PO DAILY #30 tab 06/24/17 Allergies Allergy/AdvReac Type Severity Reaction Status Date / Time cefaclor [From Ceclor] Allergy Unknown Verified 02/11/19 23:28 Cephalosporins Allergy Unknown Verified 02/11/19 23:28 hydromorphone HCl Allergy Unknown Verified 02/11/19 23:28 [From Dilaudid] lithium [[place]] Allergy Unknown Verified 02/11/19 23:28 oxcarbazepine Allergy Unknown Verified 02/11/19 23:28 [From Trileptal] phenytoin sodium Allergy Unknown Verified 02/11/19 23:28 [From Dilantin] phenytoin sodium extended Allergy Unknown Verified 02/11/19 23:28 [From Dilantin] Sulfa (Sulfonamide Allergy Unknown Verified 02/11/19 23:28 Antibiotics) sulfamethoxazole Allergy Unknown Verified 02/11/19 23:28 [From Bactrim] trimethoprim [From Bactrim] Allergy Unknown Verified 02/11/19 23:28 Review of Systems ROS Statement: Those systems with pertinent positive or pertinent negative responses have been documented in the HPI. ROS Other: All systems not noted in ROS Statement are negative. EKG Findings - EKG Comments: EKG Findings:: EKG was ordered to evaluate for chest pain, EKG was obtained at 2221, rate is 78 rhythm sinus there is a normal axis there are normal intervals, DC 136, QRS 94, QTC 48, QTC is 465 there are no acute ST elevations or depressions there is no evidence of acute ischemia or infarction. Past Medical History Past Medical History: Diabetes Mellitus, Hyperlipidemia, Hypertension, Myocardial Infarction ([place]) Additional Past Medical History / Comment(s): neuropathy, restless leg syndrome Last Myocardial Infarction Date:: May 2017 History of Any Multi-Drug Resistant Organisms: None Reported Past Surgical History: Section, Heart Catheterization With Stent, Tubal Ligation Additional Past Surgical History / Comment(s): sinues surgery, right breast cyst removal, 14 cysts taken of ovaries and tubes Past Anesthesia/Blood Transfusion Reactions: No Reported Reaction Date of Last Stent Placement:: May 2017 Past Psychological History: ADD/ADHD, Anxiety, Depression Smoking Status: Current some day smoker Past Alcohol Use History: None Reported Past Drug Use History: None Reported General Exam - General Exam Comments Initial Comments: Physical Exam GENERAL: Patient is well-developed and well-nourished. Patient is nontoxic and well- hydrated and is in no distress. HENT: Normocephalic, Atraumatic. EYES: PERRL, EOMI PULMONARY: Unlabored respirations. No audible rales rhonchi or wheezing was noted. CARDIOVASCULAR: There is a regular rate and rhythm without any murmurs gallops or rubs. ABDOMEN: Soft and nontender with normal bowel sounds. SKIN: Skin is clear with no lesions or rashes and otherwise unremarkable. : Deferred NEUROLOGIC: Patient is alert and oriented x3. Moving all extremities spontaneously MUSCULOSKELETAL: Normal extremities with adequate strength and full range of motion. No lower extremity swelling or edema. No calf tenderness. PSYCHIATRIC: Normal psychiatric evaluation Limitations: no limitations Course Vital Signs 02/11/19 02/12/19 22:10 00:22 Temperature 98.5 F Pulse Rate 79 69 Respiratory 20 18 Rate Blood Pressure 116/63 132/65 O2 Sat by Pulse 99 97 Oximetry Chest Pain MDM - MDM The patient was seen and evaluated me they've upon arrival to the emergency department history is obtained from patient medical record This is a 38-year-old female with known coronary artery disease hyperlipidemia and poorly controlled diabetes presenting with left-sided chest pain and slight EKG was unremarkable aside full cardiac workup was initiated Labs were unremarkable aside from hyperglycemia with a glucose in the 290s, troponin was negative d-dimer was negative Given the patient's history and risk factors as well as her poor compliance with outpatient follow-up I do feel the patient warrants admission to the hospital for further evaluation by cardiology. Patient is agreeable to this. Patient care was discussed with primary care physician Dr. Betancourt who agrees with plan for observation for real troponins, evaluation by cardiology Disposition Clinical Impression: Chest pain, HLD (hyperlipidemia), Hyperglycemia, Diabetes, CAD (coronary artery disease) Disposition: ADMITTED IP TO THIS HOSP Condition: Stable Is patient prescribed a controlled substance at d/c from ED?: No Referrals: Jasen Hidalgo MD [Primary Care Provider] - 1-2 days
[2019-02-11 23:02] LABS: Basophils # (A) 0.1 k/uL (0-0.2); Basophils % (A) 1 %; Eosinophils # (A) 0.1 k/uL (0-0.7); Eosinophils % (A) 1 %; HCT 44.6 % (34.0-46.0); HGB 14.3 gm/dL (11.4-16.0); Lymphocytes # (A) 2.3 k/uL (1.0-4.8); Lymphocytes % (A) 25 %; MCH 29.4 pg (25.0-35.0); MCHC 32.2 g/dL (31.0-37.0); MCV 91.3 fL (80.0-100.0); Mean Platelet Volume 7.5; Monocytes # (A) 0.4 k/uL (0-1.0); Monocytes % (A) 4 %; Neutrophils # (A) 6.4 k/uL (1.3-7.7); Neutrophils % (A) 68 %; Platelet Count 294 k/uL (150-450); RBC 4.88 m/uL (3.80-5.40); RDW 13.4 % (11.5-15.5); WBC 9.5 k/uL (3.8-10.6)
[2019-02-11 23:14] LABS: D-Dimer 0.4 mg/L FEU (<0.60); INR 0.8 (<1.2); Partial Thromboplastin Time 24.2 sec (22.0-30.0); Prothrombin Time 9.3 sec (9.0-12.0)
[2019-02-11] MEDS ORDERED: NITROGLYCERIN OINT 1 INCH/GM PACKET TOPICAL STA (23:15)
[2019-02-11] MEDS ORDERED: ASPIRIN 81 MG PO STA (23:15)
[2019-02-11 23:39] LABS: ALT 19 U/L (9-52); AST 17 U/L (14-36); African American GFR (CKD) >90 (>60 ml/min/1.73 sqM); Albumin 3.9 g/dL (3.5-5.0); Alkaline Phosphatase 127 U/L (38-126); Anion Gap 8 mmol/L; Blood Urea Nitrogen 16 mg/dL (7-17); Calcium 9.1 mg/dL (8.4-10.2); Carbon Dioxide 26 mmol/L (22-30); Chloride 102 mmol/L (98-107); Glucose 278 mg/dL (74-99); Magnesium 1.7 mg/dL (1.6-2.3); Potassium 4.4 mmol/L (3.5-5.1); Sodium 136 mmol/L (137-145); Total Bilirubin 0.3 mg/dL (0.2-1.3); Total Protein 6.7 g/dL (6.3-8.2)
--- NOTE | 2019-02-11 23:52 | XR ---
EXAM: XR Chest, 2 Views CLINICAL HISTORY: ITS.REASON XR Reason: Chest Pain TECHNIQUE: Frontal and lateral views of the chest. COMPARISON: None. FINDINGS: Lungs: Unremarkable. No consolidation. Pleural space: Unremarkable. No pneumothorax. Heart: Unremarkable. No cardiomegaly. Mediastinum: Unremarkable. Bones/joints: Unremarkable. IMPRESSION: No acute cardiopulmonary abnormality.
[2019-02-12 01:03] LABS: Appearance,Urine Clear (Clear); Bilirubin,Urine Negative (Negative); Blood,Urine Negative (Negative); Color,Urine Yellow; Glucose,Urine (UA) 4+ (Negative); Ketones,Urine Negative (Negative); Leukocyte Esterase,Urine Negative (Negative); Nitrite,Urine Negative (Negative); Protein,Urine Negative (Negative); Specific Gravity,Urine 1.027 (1.001-1.035); Urobilinogen,Urine <2.0 mg/dL (<2.0)
[2019-02-12 01:28] VITALS: BMI 36.5
[2019-02-12] MEDS ORDERED: NITROGLYCERIN OINT 1 INCH/GM PACKET TOPICAL SCH (06:00)
[2019-02-12 07:13] LABS: Glucose,Whole Blood 174 mg/dL (75-99)
--- NOTE | 2019-02-12 10:07 | P.CRDCN ---
History of Present Illness Consult date: 02/12/19 History of present illness: This is a 38-year-old female with history of known coronary artery disease with stent placement of the left anterior descending coronary artery followed by mid and distal RCA done in 2016 following non-ST elevation myocardial infarction. In December of last year. Patient presented to this hospital with nasal bleeding and also complaints of left shoulder pain which were reminiscent of the pain she had during her non-ST myocardial infarction 2017. Patient had a cardiac catheterization again which did not reveal any critical stenosis with evidence of patent stents. Since then patient has been doing well. Yesterday patient went to work and started having similar pains like a tight feeling in the chest, Again suggestive of pains that she had during myocardial infarction. Patient did not have any nitroglycerin. Apparently the symptom lasted about an hour. Finally patient had his fiance drive her to the emergency room. Since admis alejo patient has been on Nitropaste and hasn't had any recurrence of the pain. Her cardiac enzymes have been negative. EKG did not reveal any acute changes. At this point I would discontinue heparin and increase her activity. He patient doesn't have any recurrence of chest pain, patient could be discharged home to be evaluated by stress test as an outpatient. However the patient continues to have recurrent pains, patient may need cardiac catheterization for definitive diagnosis Review of Systems As per the chart Past Medical History Past Medical History: Diabetes Mellitus, Hyperlipidemia, Hypertension, Myocardial Infarction ([place]) Additional Past Medical History / Comment(s): neuropathy, restless leg syndrome Last Myocardial Infarction Date:: May 2017 History of Any Multi-Drug Resistant Organisms: None Reported Past Surgical History: Section, Heart Catheterization With Stent, Tubal Ligation Additional Past Surgical History / Comment(s): sinues surgery, right breast cyst removal, 14 cysts taken of ovaries and tubes Past Anesthesia/Blood Transfusion Reactions: No Reported Reaction Date of Last Stent Placement:: May 2017 Past Psychological History: ADD/ADHD, Anxiety, Depression Smoking Status: Current some day smoker Past Alcohol Use History: None Reported Past Drug Use History: None Reported Medications and Allergies Home Medications Medication Instructions Recorded Confirmed Type Dextroamphetamine/Amphetamine 30 mg PO DAILY 06/19/14 02/12/19 History [Adderall Xr] Aspirin 81 mg PO DAILY #30 chew 06/24/17 02/12/19 Rx Famotidine [Pepcid] 20 mg PO DAILY #30 tablet 06/24/17 02/12/19 Rx Losartan [Cozaar] 12.5 mg PO DAILY #30 tab 06/24/17 02/12/19 Rx Escitalopram [Lexapro] 20 mg PO DAILY 01/12/18 02/12/19 History Insulin Aspart (For Pump) [NovoLOG 0.01 unit SQ-PUMP CONTINUOUS 01/12/18 02/12/19 History (For Pump)] Metoprolol Succinate (ER) [Toprol 25 mg PO DAILY 01/12/18 02/12/19 History XL] buPROPion HCL [Wellbutrin XL] 150 mg PO DAILY 01/12/18 02/12/19 History Atorvastatin [Lipitor] 80 mg PO DAILY 02/11/19 02/12/19 History Cetirizine HCl [Zyrtec] 10 mg PO DAILY 02/11/19 02/12/19 History Gabapentin [Neurontin] 300 mg PO TID 02/11/19 02/12/19 History Ubidecarenone [Co Q-10] 100 mg PO DAILY 02/11/19 02/12/19 History Allergies Allergy/AdvReac Type Severity Reaction Status Date / Time cefaclor [From Ceclor] Allergy Unknown Verified 02/12/19 01:29 Cephalosporins Allergy Unknown Verified 02/12/19 01:29 hydromorphone HCl Allergy Unknown Verified 02/12/19 01:29 [From Dilaudid] lithium [[place]] Allergy Unknown Verified 02/12/19 01:29 oxcarbazepine Allergy Unknown Verified 02/12/19 01:29 [From Trileptal] phenytoin sodium Allergy Unknown Verified 02/12/19 01:29 [From Dilantin] phenytoin sodium extended Allergy Unknown Verified 02/12/19 01:29 [From Dilantin] Sulfa (Sulfonamide Allergy Unknown Verified 02/12/19 01:29 Antibiotics) sulfamethoxazole Allergy Unknown Verified 02/12/19 01:29 [From Bactrim] trimethoprim [From Bactrim] Allergy Unknown Verified 02/12/19 01:29 Physical Exam Vitals: Vital Signs Temp Pulse Pulse Pulse Resp BP BP 02/12/19 08:00 98.0 F 70 16 108/70 02/12/19 04:00 97.9 F 65 15 111/73 02/12/19 01:22 98.0 F 64 15 125/84 02/12/19 00:22 69 18 132/65 02/11/19 22:10 98.5 F 79 20 116/63 Pulse Ox 02/12/19 08:00 97 02/12/19 04:00 97 02/12/19 01:22 97 02/12/19 00:22 97 02/11/19 22:10 99 Intake and Output 02/11/19 02/12/19 02/12/19 22:59 06:59 14:59 Other: Weight 93.894 kg GENERAL EXAM: Patient is alert and oriented and doesn't appear to be in any acute distress HEENT: Normocephalic. Normal reaction of pupils, equal size, normal range of extraocular motion. No erythema or exudates in the throat. NECK: No masses, no nuchal rigidity. CHEST: No chest wall deformity. LUNGS: Equal air entry with no crackles or wheeze. HEART: S1 and S2 normal with no audible mumurs or gallops. Regular rhythm, femorals equal on both sides.. ABDOMEN: No hepatosplenomegaly, normal bowel sounds, no guarding or rigidity. SKIN: No rashes CENTRAL NERVOUS SYSTEM: No focal deficits. EXTREMITIES: No cyanosis, clubbing or edema. Results 02/11/19 22:40 02/11/19 22:40 Cardiac Enzymes 02/11/19 02/11/19 02/12/19 Range/Units 22:40 22:40 03:43 AST 17 (14-36) U/L Troponin I <0.012 <0.012 (0.000-0.034) ng/mL Coagulation 02/11/19 Range/Units 22:40 PT 9.3 (9.0-12.0) sec APTT 24.2 (22.0-30.0) sec CBC 02/11/19 Range/Units 22:40 WBC 9.5 (3.8-10.6) k/uL RBC 4.88 (3.80-5.40) m/uL Hgb 14.3 (11.4-16.0) gm/dL Hct 44.6 (34.0-46.0) % Plt Count 294 (150-450) k/uL Comprehensive Metabolic Panel 02/11/19 Range/Units 22:40 Sodium 136 L (137-145) mmol/L Potassium 4.4 (3.5-5.1) mmol/L Chloride 102 (98-107) mmol/L Carbon Dioxide 26 (22-30) mmol/L BUN 16 (7-17) mg/dL Creatinine 0.62 (0.52-1.04) mg/dL Glucose 278 H (74-99) mg/dL Calcium 9.1 (8.4-10.2) mg/dL AST 17 (14-36) U/L ALT 19 (9-52) U/L Alkaline Phosphatase 127 H (38-126) U/L Total Protein 6.7 (6.3-8.2) g/dL Albumin 3.9 (3.5-5.0) g/dL Current Medications Generic Name Dose Route Start Last Admin Trade Name Freq PRN Reason Stop Dose Admin Aspirin 325 mg 02/13/19 09:00 Aspirin PO DAILY [facility] Insulin Aspart 0 unit 02/12/19 07:30 Novolog SQ ACHS [facility] Protocol Nitroglycerin 1 inch 02/12/19 06:00 02/12/19 06:12 Nitro-Bid Oint TOPICAL 1 inch Q6HR [facility] Administration Intake and Output 02/11/19 02/12/19 02/12/19 22:59 06:59 14:59 Other: Weight 93.894 kg 02/11/19 22:40 02/11/19 22:40 EKG Interpretations (text) Sinus rhythm Assessment and Plan (1) CAD (coronary artery disease) Current Visit: Yes Status: Acute Code(s): I25.10 - ATHSCL HEART DISEASE OF [place] CORONARY ARTERY W/O ANG PCTRS SNOMED Code(s): 75277290 (2) Chest pain Current Visit: Yes Status: Acute Code(s): R07.9 - CHEST PAIN, UNSPECIFIED SNOMED Code(s): 58343636 (3) Diabetes Current Visit: Yes Status: Acute Code(s): E11.9 - TYPE 2 DIABETES MELLITUS WITHOUT COMPLICATIONS SNOMED Code(s): 95782136 (4) HLD (hyperlipidemia) Current Visit: Yes Status: Acute Code(s): E78.5 - HYPERLIPIDEMIA, UNSPECIFIED SNOMED Code(s): 35701068 Plan: So far. Patient's cardiac enzymes and EKGs are negative. Patient is pain-free since admission. We'll plan to discontinue heparin and increase her activity. If patient remains stable, patient could be discharged home to be evaluated by stress test as an outpatient. However, the patient has any recurrence of chest pain, may consider cardiac cath for definitive diagnosis
[2019-02-12] MEDS ORDERED: NITROGLYCERIN SL TABS 0.4 MG TAB SUBLINGUAL PRN (10:10)
[2019-02-12] MEDS ORDERED: Insulin Aspart (For Pump) 100 UNIT/ML VIAL SQ-PUMP SCH (10:15)
[2019-02-12] MEDS: INSULIN ASPART (NovoLOG) 100 UNIT/ML VIAL SQ SCH ×2 (10:23→12:10)
[2019-02-12] MEDS ORDERED: GABAPENTIN 300 MG CAP PO STA (10:29)
--- NOTE | 2019-02-12 11:36 | P.HPIM ---
History of Present Illness H&P Date: 02/12/19 Chief Complaint: Chest pain 38-year-old female history of known coronary artery disease with stent placed to the left anterior descending coronary artery followed by mid and distal RCA done in 2016 non-ST elevation myocardial infarction provoked at that procedure. In December of last year patient presented to the hospital with nasal bleeding The left shoulder pain which were reminiscent of her non-STEMI myocardial infarction in 2017 patient a catheterization which did not reveal any critical stenosis or evidence of restenosis with the stents. Since that time patient has been doing well. Yesterday patient and were started having similar chest pains type feeling in the chest similar to when she had her in [place]. Patient did not have any nitroglycerin. Symptoms lasted about an hour patient and her fianc drove directly to the emergency room. Review of Systems Constitutional: Reports as per HPI Ears, nose, mouth and throat: Reports as per HPI Cardiovascular: Reports chest pain Respiratory: Reports as per HPI, Reports congestion Gastrointestinal: Reports as per HPI Genitourinary: Reports as per HPI Menstruation: Reports as per HPI Musculoskeletal: Reports as per HPI Integumentary: Reports as per HPI Neurological: Reports as per HPI Psychiatric: Reports as per HPI Endocrine: Reports as per HPI Past Medical History Past Medical History: Diabetes Mellitus, Hyperlipidemia, Hypertension, Myocardial Infarction ([place]) Additional Past Medical History / Comment(s): neuropathy, restless leg syndrome Last Myocardial Infarction Date:: May 2017 History of Any Multi-Drug Resistant Organisms: None Reported Past Surgical History: Section, Heart Catheterization With Stent, Tubal Ligation Additional Past Surgical History / Comment(s): sinues surgery, right breast cyst removal, 14 cysts taken of ovaries and tubes Past Anesthesia/Blood Transfusion Reactions: No Reported Reaction Date of Last Stent Placement:: May 2017 Past Psychological History: ADD/ADHD, Anxiety, Depression Smoking Status: Current some day smoker Past Alcohol Use History: None Reported Past Drug Use History: None Reported Medications and Allergies Home Medications Medication Instructions Recorded Confirmed Type Dextroamphetamine/Amphetamine 30 mg PO DAILY 06/19/14 02/12/19 History [Adderall Xr] Aspirin 81 mg PO DAILY #30 chew 06/24/17 02/12/19 Rx Famotidine [Pepcid] 20 mg PO DAILY #30 tablet 06/24/17 02/12/19 Rx Losartan [Cozaar] 12.5 mg PO DAILY #30 tab 06/24/17 02/12/19 Rx Escitalopram [Lexapro] 20 mg PO DAILY 01/12/18 02/12/19 History Insulin Aspart (For Pump) [NovoLOG 0.01 unit SQ-PUMP CONTINUOUS 01/12/18 02/12/19 History (For Pump)] Metoprolol Succinate (ER) [Toprol 25 mg PO DAILY 01/12/18 02/12/19 History XL] buPROPion HCL [Wellbutrin XL] 150 mg PO DAILY 01/12/18 02/12/19 History Atorvastatin [Lipitor] 80 mg PO DAILY 02/11/19 02/12/19 History Cetirizine HCl [Zyrtec] 10 mg PO DAILY 02/11/19 02/12/19 History Gabapentin [Neurontin] 300 mg PO TID 02/11/19 02/12/19 History Ubidecarenone [Co Q-10] 100 mg PO DAILY 02/11/19 02/12/19 History Allergies Allergy/AdvReac Type Severity Reaction Status Date / Time cefaclor [From Ceclor] Allergy Unknown Verified 02/12/19 01:29 Cephalosporins Allergy Unknown Verified 02/12/19 01:29 hydromorphone HCl Allergy Unknown Verified 02/12/19 01:29 [From Dilaudid] lithium [[place]] Allergy Unknown Verified 02/12/19 01:29 oxcarbazepine Allergy Unknown Verified 02/12/19 01:29 [From Trileptal] phenytoin sodium Allergy Unknown Verified 02/12/19 01:29 [From Dilantin] phenytoin sodium extended Allergy Unknown Verified 02/12/19 01:29 [From Dilantin] Sulfa (Sulfonamide Allergy Unknown Verified 02/12/19 01:29 Antibiotics) sulfamethoxazole Allergy Unknown Verified 02/12/19 01:29 [From Bactrim] trimethoprim [From Bactrim] Allergy Unknown Verified 02/12/19 01:29 Physical Exam Osteopathic Statement: *. No significant issues noted on an osteopathic structural exam other than those noted in the History and Physical/Consult. Vitals: Vital Signs Temp Pulse Pulse Pulse Resp BP BP 02/12/19 08:00 98.0 F 70 16 108/70 02/12/19 04:00 97.9 F 65 15 111/73 02/12/19 01:22 98.0 F 64 15 125/84 02/12/19 00:22 69 18 132/65 02/11/19 22:10 98.5 F 79 20 116/63 Pulse Ox 02/12/19 08:00 97 02/12/19 04:00 97 02/12/19 01:22 97 02/12/19 00:22 97 02/11/19 22:10 99 Intake and Output 02/11/19 02/12/19 02/12/19 22:59 06:59 14:59 Other: Weight 93.894 kg General: [Patient awake, alert and oriented times 3. Patient in no acute distress.] HEENT: [PERRL. EOMI. No pharyngeal erythema or exudate.] Neck: [No adenopathy.] Cardiac: [Heart regular in rate and rhythm. No S3. No S4. No clicks, rubs. No murmur.] Lungs: [Clear to auscultation bilaterally.] Abdomen: [No mass. No organomegaly. Bowel sounds presnt and normoactive in all 4 quadrants.] Extremes: [No edema no cyanosis no claudication normal pulses] : Musculoskeletal: [No joint erythema, edema or tenderness.] Skin: [No rash.] Neurologic: [No lateralizing deficits. CN II - XII grossly intact.] Lymphatic: [No adenopathy.] Results CBC & Chem 7: 02/11/19 22:40 02/11/19 22:40 Labs: Abnormal Lab Results - Last 24 Hours (Table) 02/11/19 02/12/19 02/12/19 Range/Units 22:40 00:30 06:59 Sodium 136 L (137-145) mmol/L Glucose 278 H (74-99) mg/dL POC Glucose (mg/dL) 174 H (75-99) mg/dL Alkaline Phosphatase 127 H (38-126) U/L Urine Glucose (UA) 4+ H (Negative) Thrombosis Risk Factor Assmnt - Choose All That Apply Any of the Below Risk Factors Present?: Yes Each Factor Represents 1 point: Obesity (BMI >25) Thrombosis Risk Factor Assessment Total Risk Factor Score: 1 Thrombosis Risk Factor Assessment Level: Low Risk Assessment and Plan (1) CAD (coronary artery disease) Current Visit: Yes Status: Acute Code(s): I25.10 - ATHSCL HEART DISEASE OF [place] CORONARY ARTERY W/O ANG PCTRS SNOMED Code(s): 18116093 (2) Chest pain Current Visit: Yes Status: Acute Code(s): R07.9 - CHEST PAIN, UNSPECIFIED SNOMED Code(s): 09495390 (3) Diabetes Current Visit: Yes Status: Acute Code(s): E11.9 - TYPE 2 DIABETES MELLITUS WITHOUT COMPLICATIONS SNOMED Code(s): 29525276 (4) HLD (hyperlipidemia) Current Visit: Yes Status: Acute Code(s): E78.5 - HYPERLIPIDEMIA, UNSPECIFIED SNOMED Code(s): 54924263 (5) Hyperglycemia Current Visit: Yes Status: Acute Code(s): R73.9 - HYPERGLYCEMIA, UNSPECIFIED SNOMED Code(s): 45797360 (6) Acute non-ST segment elevation myocardial infarction (STEMI) following previous myocardial infarction Current Visit: No Status: Acute Code(s): I22.9 - SUBSEQUENT STEMI OF [facility] S[facility] (7) Antiplatelet or antithrombotic long-term use Current Visit: No Status: Acute Code(s): Z79.02 - [employer] WRITER (CURRENT) USE OF ANTITHROMBOTICS/ANTIPLATELETS SNOMED Code(s): 380554557 (8) Atypical chest pain Current Visit: No Status: Acute Code(s): R07.89 - OTHER CHEST PAIN SNOMED Code(s): 280326416 Plan: Coronary artery disease by history Chest pain Type 2 diabetes controlled without complications Hyperlipidemia Cardiology consult was performed Patient's cardiac enzymes are normal EKGs normal patient is pain-free Anticipate third set of enzymes being this negative patient to be discharged home will schedule stress test as an outpatient Cardiac catheterization might be possible to patient develops chest pain and or last set of enzymes elevated Time with Patient: Greater than 30
[2019-02-12 11:54] LABS: Glucose,Whole Blood 356 mg/dL (75-99)
[2019-02-12] MEDS ORDERED: ACETAMINOPHEN TAB 325 MG TAB PO PRN (12:24)
[2019-02-12 12:26] VITALS: BP 116/80; PULSE 72; RESP 18; TEMP 97.7
[2019-02-12] MEDS ORDERED: GABAPENTIN 300 MG CAP PO SCH (16:00)
[2019-02-13] MEDS ORDERED: FAMOTIDINE 20 MG TAB PO SCH (09:00)
[2019-02-13] MEDS ORDERED: METOPROLOL SUCCINATE (ER) 25 MG TAB.ER.24H PO SCH (09:00)
[2019-02-13] MEDS ORDERED: NON-FORMULARY DRUG (Ubidecarenone [Co Q-10] 100 MG) PO SCH (09:00)
[2019-02-13] MEDS ORDERED: buPROPion XL 150 MG TAB.ER.24H PO SCH (09:00)
[2019-02-13] MEDS ORDERED: ASPIRIN 325 MG TAB PO SCH (09:00)
[2019-02-13] MEDS ORDERED: ATORVASTATIN 80 MG TAB PO SCH (09:00)
[2019-02-13] MEDS ORDERED: LORATADINE 10 MG TAB PO SCH (09:00)
[2019-02-13] MEDS ORDERED: LOSARTAN 25 MG TAB PO SCH (09:00)
[2019-02-13] MEDS ORDERED: NON-FORMULARY DRUG (Dextroamphetamine/Amphetamine [Adderall Xr] 30 MG) PO SCH (09:00)
[2019-02-13] MEDS ORDERED: ESCITALOPRAM 20 MG TAB PO SCH (09:00)
== END 2019-02-12 16:07 | disposition home or self-care (01) ==
LOC: EC 22:07 → 1SOBS 02-12 00:14
PROVIDERS: ADMIT Family Medicine; ATTEND Family Medicine
DX: R07.89 Other chest pain (principal); I25.10 Atherosclerotic heart disease of native coronary artery without angina pectoris; E78.5 Hyperlipidemia, unspecified; E11.65 Type 2 diabetes mellitus with hyperglycemia; E11.42 Type 2 diabetes mellitus with diabetic polyneuropathy; T85.614A Breakdown (mechanical) of insulin pump, initial encounter; G25.81 Restless legs syndrome; F90.9 Attention-deficit hyperactivity disorder, unspecified type; F41.9 Anxiety disorder, unspecified; F32.9 Major depressive disorder, single episode, unspecified; F17.200 Nicotine dependence, unspecified, uncomplicated; Z96.41 Presence of insulin pump (external) (internal); E66.9 Obesity, unspecified; R09.89 Other specified symptoms and signs involving the circulatory and respiratory systems; Z68.36 Body mass index [BMI] 36.0-36.9, adult; Z79.82 Long term (current) use of aspirin; Z79.899 Other long term (current) drug therapy; Z88.1 Allergy status to other antibiotic agents; Z88.2 Allergy status to sulfonamides; Z88.5 Allergy status to narcotic agent; Z88.8 Allergy status to other drugs, medicaments and biological substances; I25.2 Old myocardial infarction; Z98.51 Tubal ligation status; Z95.5 Presence of coronary angioplasty implant and graft
CPT/HCPCS: 99285; 36415; 93005; 85379; 80053; 83735; 84484 ×2; 85025; 85610; 85730; 81003; 81025; 71046; G0378

== ENCOUNTER → 2019-02-17 | Outpatient (CLI) | payer BC, OTHER | END | disposition home or self-care (01) | LOC: LABWHC1 11:48 | PROVIDERS: ATTEND Family Medicine | DX: I71.2 Thoracic aortic aneurysm, without rupture (principal); E11.65 Type 2 diabetes mellitus with hyperglycemia; E11.40 Type 2 diabetes mellitus with diabetic neuropathy, unspecified; Z79.4 Long term (current) use of insulin | CPT/HCPCS: 36415; 82985 ==

== ENCOUNTER → 2019-02-28 | Outpatient (CLI) | payer BC, OTHER | END | disposition home or self-care (01) | LOC: LABWHC1 10:23 | PROVIDERS: ATTEND Family Medicine | DX: E11.9 Type 2 diabetes mellitus without complications (principal) | CPT/HCPCS: 36415; 82947; 84681 ==

== ENCOUNTER → 2019-03-09 | Outpatient (CLI) | payer BC, OTHER ==
[2019-03-09 10:56] LABS: HCT 44.8 % (34.0-46.0); HGB 14.7 gm/dL (11.4-16.0); MCH 30.2 pg (25.0-35.0); MCHC 32.8 g/dL (31.0-37.0); MCV 91.8 fL (80.0-100.0); Platelet Count 266 k/uL (150-450); RBC 4.88 m/uL (3.80-5.40); RDW 12.5 % (11.5-15.5); WBC 8.8 k/uL (3.8-10.6)
[2019-03-09 11:06] LABS: African American GFR (CKD) >90 (>60 ml/min/1.73 sqM); Anion Gap 10 mmol/L; Blood Urea Nitrogen 15 mg/dL (7-17); Carbon Dioxide 24 mmol/L (22-30); Chloride 102 mmol/L (98-107); Potassium 4.5 mmol/L (3.5-5.1); Sodium 136 mmol/L (137-145)
== END | disposition home or self-care (01) ==
LOC: LABPAT 10:09
PROVIDERS: ATTEND Internal Medicine Cardiovascular Disease
DX: Z01.812 Encounter for preprocedural laboratory examination (principal); I25.10 Atherosclerotic heart disease of native coronary artery without angina pectoris
CPT/HCPCS: 80051; 82565; 84520; 85027

== ENCOUNTER 2019-03-11 11:28 | Day surgery (SDC) | payer BC, OTHER ==
[2019-03-11] MEDS ORDERED: SODIUM CHLORIDE 0.9% 1,000 ML in EMPTY BAG 1 BAG IV ONE (11:48)
[2019-03-11] MEDS ORDERED: ALPRAZolam 0.25 MG TAB PO PRN (11:48)
[2019-03-11] MEDS ORDERED: NITROGLYCERIN SL TABS 0.4 MG TAB SUBLINGUAL PRN (11:48)
[2019-03-11] MEDS ORDERED: ALPRAZolam 0.5 MG TAB PO PRN (11:48)
[2019-03-11] MEDS ORDERED: ATORVASTATIN 80 MG TAB PO STA (11:48)
[2019-03-11] MEDS ORDERED: ASPIRIN 325 MG TAB PO STA (11:48)
[2019-03-11 12:04] LABS: Glucose,Whole Blood 328 mg/dL (75-99)
[2019-03-11] MEDS ORDERED: SODIUM CHLORIDE 0.9% 1,000 ML IV ONE (12:19)
[2019-03-11] MEDS ORDERED: LIDOCAINE 1% INJ 10MG/ML (20 ML MDV) ONE (12:27)
[2019-03-11] MEDS ORDERED: MIDAZOLAM (PF) 2 MG/2 ML VIAL IVP ONE ×2 (12:45→13:02)
[2019-03-11] MEDS ORDERED: LIDOCAINE 1% INJ 10MG/ML (20 ML MDV) SQ ONE (12:49)
[2019-03-11] MEDS ORDERED: fentaNYL (PF) 50 MCG/ML 2 ML AMP ONE (12:52)
[2019-03-11] MEDS ORDERED: fentaNYL (PF) 50 MCG/ML 2 ML AMP IVP ONE (12:53)
[2019-03-11] MEDS ORDERED: RX INFO: IV CONTRAST WAS GIVEN 1 EACH MISC MISCELLANE PRN (13:10)
[2019-03-11] MEDS ORDERED: SODIUM CHLORIDE 0.9% 1,000 ML IV SCH (13:15)
[2019-03-11] MEDS ORDERED: IOPAMIDOL-370 125ML BTL INJ ONE (13:24)
[2019-03-11 14:08] VITALS: BMI 35.6
--- NOTE | 2019-03-11 16:27 | CC ---
CARDIAC CATHETERIZATION REPORT DATE OF SERVICE: 03/11/2019 PERFORMING PHYSICIAN: Storm Álvarez MD, human resources file clerk. PROCEDURES PERFORMED: 1. Selective right and left coronary angiogram. 2. Left heart catheterization. INDICATION: This is a 38-year-old female patient who sees Dr. England in the office as an outpatient with known history of CAD and prior stenting of the RCA and LAD. She was experiencing recently intermittent episodes of chest discomfort concerning for angina. Because of that, a heart catheterization was advised. APPROACH: Right common femoral artery. COMPLICATIONS: None. LEVEL OF SEDATION: Moderate, with sedation length of 12 minutes. PROCEDURE DESCRIPTION: After obtaining informed consent, the patient was brought to the cardiac chemical lab technician. The right common femoral artery was cannulated using micropuncture technique. The micropuncture wire passed easily. Then I placed a 6-Italian sheath in the right common femoral artery. After that I did selective right and left coronary angiogram. Initially I did selective right coronary angiogram using JR4 catheter which was 6- Italian, but the patient did have spasm and she went into ventricular fibrillation. We shocked her and brought her back to normal rhythm. After that I did selective right coronary angiogram using JR3.5 5-Italian. Selective left coronary angiogram was performed using JL4 catheter. After that I did left heart catheterization using 6- Italian pigtail catheter. After that I did selective right common femoral artery angiogram. The procedure was completed without any complication. SELECTIVE CORONARY ANGIOGRAM: 1. The left main is a large-caliber vessel. It is angiographically normal. It bifurcates into left circumflex and left anterior descending artery. 2. Left circumflex is a large-caliber vessel. It is a nondominant vessel and appeared to have mild disease only. 3. The proximal LAD appeared to be angiographically normal. The mid LAD is stented and the stent is patent. The LAD distal to the stent has a lesion that appeared to be in the range of 30% to 40%. The LAD very distally appeared to have mild disease only. The LAD gives rise to multiple small diagonal branches; they appeared to have mild disease only. 4. The RCA. The right coronary artery is a moderate- to large-caliber vessel. The RCA in the mid portion has a lesion that appeared to be in the range of 40% to 50%. Distally it appeared to be stented and the stent is patent. HEMODYNAMICS: The left ventricular end-diastolic pressure was about 12 mmHg without significant gradient across the aortic valve. CONCLUSION: 1. Patent stent in the mid left anterior descending artery. 2. Patent stent in the distal right coronary artery. There was intermediate lesion involving the mid RCA that appeared to be in the range of 50%. POST-PROCEDURE MANAGEMENT: 1. Maximize medical treatment. 2. Follow up with the patient. RONAK / RAFAELN: [id number] /
[2019-03-11 16:36] LABS: Glucose,Whole Blood 330 mg/dL (75-99)
[2019-03-11] MEDS ORDERED: INSULIN ASPART (NovoLOG) 100 UNIT/ML VIAL SQ SCH (17:30)
[2019-03-11 20:22] VITALS: BP 115/82; PULSE 79; RESP 18; TEMP 98.1
== END 2019-03-11 20:22 | disposition home or self-care (01) ==
LOC: CATHCVL 11:28 → 1SOBS 13:11 → CATHCVL 20:22
PROVIDERS: ATTEND Internal Medicine Interventional Cardiology
DX: I25.110 Atherosclerotic heart disease of native coronary artery with unstable angina pectoris (principal); I10 Essential (primary) hypertension; I25.2 Old myocardial infarction; E78.00 Pure hypercholesterolemia, unspecified; E78.2 Mixed hyperlipidemia; E11.9 Type 2 diabetes mellitus without complications; Z95.5 Presence of coronary angioplasty implant and graft; Z87.891 Personal history of nicotine dependence; Z79.82 Long term (current) use of aspirin; Z79.899 Other long term (current) drug therapy; Z79.02 Long term (current) use of antithrombotics/antiplatelets; Z79.4 Long term (current) use of insulin; Z88.1 Allergy status to other antibiotic agents; Z88.2 Allergy status to sulfonamides; Z88.8 Allergy status to other drugs, medicaments and biological substances
CPT/HCPCS: 93458; 81025; C1894; C1769 ×2; J2001; J3010; Q9967; J2250

== ENCOUNTER 2019-04-23 20:18 | Emergency (ER) | payer BC, OTHER ==
[2019-04-23 20:30] VITALS: RESP 18
[2019-04-23] MEDS ORDERED: predniSONE 20 MG TAB PO STA (21:09)
[2019-04-23 21:21] VITALS: TEMP 98.6
--- NOTE | 2019-04-23 21:41 | XR ---
EXAMINATION TYPE: XR chest 2V DATE OF EXAM: 04/23/2019 COMPARISON: 02/11/2019 HISTORY: Sore throat and cough TECHNIQUE: Frontal and lateral views of the chest are obtained. FINDINGS: Heart and mediastinum are normal. Lungs are clear. Diaphragm is normal. Bony thorax appear s normal. IMPRESSION: Normal chest. No change.
[2019-04-23] MEDS ORDERED: OXYMETAZOLINE 0.05% NASL SPRAY 1 SPRAY BOTTLE NASAL STA (22:09)
--- NOTE | 2019-04-23 22:11 | ED ---
URI HPI - General Chief Complaint: Upper Respiratory Infection Stated Complaint: Cough Time Seen by Provider: 04/23/19 20:43 Source: patient Mode of arrival: ambulatory Limitations: no limitations - History of Present Illness Initial Comments: 38-year-old female patient presents to the emergency department today for evaluation after experiencing a nosebleed lasting approximately 1.5 hours. Patient states that the bleeding stopped on the way here. States that she is also been experiencing a cough with no sputum production for the last 4 days. States she did start taking some prednisone and Augmentin she had at home. She is also taking [id number] cough medication which is not helping. She denies any fevers or chills with this. Denies any chest pain. Denies any shortness of breath. Patient does admit to smoking, states she is currently quitting is had 3 cigarettes today. She denies taking any anticoagulants or antiplatelet medications. Patient denies any recent rash, abdominal pain, nausea, vomiting, diarrhea, constipation, back pain, numbness, tingling, dizziness, weakness, hematuria, dysuria, urinary urgency, urinary frequency, headache, visual changes, or any other complaints. - Related Data Home Medications Medication Instructions Recorded Confirmed Dextroamphetamine/Amphetamine 30 mg PO DAILY 06/19/14 04/23/19 [Adderall Xr] Escitalopram [Lexapro] 20 mg PO DAILY 01/12/18 04/23/19 Metoprolol Succinate (ER) [Toprol 25 mg PO DAILY 01/12/18 04/23/19 XL] buPROPion HCL [Wellbutrin XL] 150 mg PO DAILY 01/12/18 04/23/19 Atorvastatin [Lipitor] 80 mg PO HS 02/11/19 03/11/19 Cetirizine HCl [Zyrtec] 10 mg PO DAILY 02/11/19 04/23/19 Gabapentin [Neurontin] 300 mg PO BID 02/11/19 04/23/19 Ubidecarenone [Co Q-10] 100 mg PO DAILY 02/11/19 04/23/19 Aspirin 81 mg PO DAILY 03/10/19 04/23/19 Famotidine [Pepcid] 20 mg PO DAILY 03/10/19 04/23/19 INSULIN ASPART (NovoLOG) [NovoLOG See Protocol SQ ACHS 03/10/19 04/23/19 (formulary)] Losartan [Cozaar] 12.5 mg PO HS 03/10/19 03/11/19 Varenicline [Chantix Continuing 1 mg PO BID 04/23/19 04/23/19 Pack] Previous Rx's Medication Instructions Recorded Amoxic-Pot Clav 875-125Mg 1 tab PO Q12HR #12 tablet 04/23/19 [Augmentin 875-125] guaiFENesin-DM 600/30MG [Mucinex 1 each PO Q12HR #10 tab.er.12h 04/23/19 Dm] predniSONE 50 mg PO DAILY #5 tablet 04/23/19 Allergies Allergy/AdvReac Type Severity Reaction Status Date / Time cefaclor [From Ceclor] Allergy Unknown Verified 04/23/19 21:13 Cephalosporins Allergy Unknown Verified 04/23/19 21:13 hydromorphone HCl Allergy Unknown Verified 04/23/19 21:13 [From Dilaudid] lithium [[place]] Allergy Unknown Verified 04/23/19 21:13 oxcarbazepine Allergy Unknown Verified 04/23/19 21:13 [From Trileptal] phenytoin sodium Allergy Unknown Verified 04/23/19 21:13 [From Dilantin] phenytoin sodium extended Allergy Unknown Verified 04/23/19 21:13 [From Dilantin] Sulfa (Sulfonamide Allergy Unknown Verified 04/23/19 21:13 Antibiotics) sulfamethoxazole Allergy Unknown Verified 04/23/19 21:13 [From Bactrim] trimethoprim [From Bactrim] Allergy Unknown Verified 04/23/19 21:13 Review of Systems ROS Statement: Those systems with pertinent positive or pertinent negative responses have been documented in the HPI. ROS Other: All systems not noted in ROS Statement are negative. Past Medical History Past Medical History: Chest Pain / Angina, Diabetes Mellitus, Hyperlipidemia, Hypertension, Myocardial Infarction ([place]) Additional Past Medical History / Comment(s): neuropathy, restless leg syndrome, recent admission for chest pain, anuerysm ascending aortic, Last Myocardial Infarction Date:: May 2017 History of Any Multi-Drug Resistant Organisms: None Reported Past Surgical History: Section, Heart Catheterization With Stent, Tubal Ligation, Uterine Ablation Additional Past Surgical History / Comment(s): sinues surgery, right breast cyst removal, 14 cysts taken of ovaries and tubes, Past Anesthesia/Blood Transfusion Reactions: No Reported Reaction Date of Last Stent Placement:: May 2017 Past Psychological History: ADD/ADHD, Anxiety, Depression Smoking Status: Current every day smoker Past Alcohol Use History: None Reported Past Drug Use History: None Reported General Exam Limitations: no limitations General appearance: alert, in no apparent distress, other (This is a well- developed, well-nourished adult female patient in no acute distress. Vital signs upon presentation are temperature 98.3F, pulse 87, respirations 18, blood pressure 157/93, pulse ox 96% on room air.) Eye exam: Present: normal appearance, PERRL, EOMI. Absent: scleral icterus, conjunctival injection, periorbital swelling ENT exam: Present: normal exam, normal oropharynx, mucous membranes moist, TM's normal bilaterally Respiratory exam: Present: normal lung sounds bilaterally. Absent: respiratory distress, wheezes, rales, rhonchi, stridor Cardiovascular Exam: Present: regular rate, normal rhythm, normal heart sounds. Absent: systolic murmur, diastolic murmur, rubs, gallop, clicks GI/Abdominal exam: Present: soft, normal bowel sounds. Absent: distended, tenderness, guarding, rebound, rigid Neurological exam: Present: alert, oriented X3, CN II-XII intact Psychiatric exam: Present: normal affect, normal mood Skin exam: Present: warm, dry, intact, normal color. Absent: rash Course Vital Signs 04/23/19 04/23/19 04/23/19 20:23 20:45 21:19 Temperature 98.3 F 98.6 F Pulse Rate 87 80 Respiratory 18 18 18 Rate Blood Pressure 157/93 145/91 O2 Sat by Pulse 96 98 Oximetry 04/23/19 22:31 Temperature 98.6 F Pulse Rate 78 Respiratory 18 Rate Blood Pressure 144/93 O2 Sat by Pulse 98 Oximetry Medical Decision Making - Medical Decision Making 38-year-old female patient presented to the emergency department today for evaluation of cough and epistaxis. Nosebleed did resolve on the way here. She is currently taking anti-coagulant or antiplatelet medications. Cough has been present for the last 4 days. Lungs are clear to auscultation with good air movement. Patient is good oxygen saturation. Chest x-ray was obtained and showed no acute abnormalities. Patient did start taking prednisone and Augmentin she had at home. Patient's prednisone will be increased to a 50 mg burst dose over the next 5 days. We'll continue Augmentin. She is also given a prescription for Mucinex DM. She is instructed to follow-up with her primary care physician for recheck in 1-2 days. She is urged to discuss referral to pulmonology symptoms do not improve. Return parameters were discussed in detail. She verbalizes understanding and agrees with this plan. - Radiology Data Radiology results: report reviewed, image reviewed Two-view x-ray of the chest is obtained. Report was reviewed in its entirety. Impression by Dr. Olson shows normal chest with no change. Disposition Clinical Impression: Upper respiratory infection, Epistaxis Disposition: HOME SELF-CARE Condition: Good Instructions (If sedation given, give patient instructions): Upper Respiratory Infection (ED) Additional Instructions: Complete medications as directed. Follow up with you primary care physician for recheck in 1-2 days. Return to the emergency department for any new, worsening, or concerning symptoms. Prescriptions: Amoxic-Pot Clav 875-125Mg [Augmentin 875-125] 1 tab PO Q12HR #12 tablet guaiFENesin-DM 600/30MG [Mucinex Dm] 1 each PO Q12HR #10 tab.er.12h predniSONE 50 mg PO DAILY #5 tablet Is patient prescribed a controlled substance at d/c from ED?: No Referrals: Jasen Hidalgo MD [Primary Care Provider] - 1-2 days Time of Disposition: 22:11
[2019-04-23 22:32] VITALS: BP 144/93; PULSE 78
== END 2019-04-23 22:30 | disposition home or self-care (01) ==
LOC: EC 20:18
DX: J06.9 Acute upper respiratory infection, unspecified (principal); R04.0 Epistaxis; I20.9 Angina pectoris, unspecified; E11.40 Type 2 diabetes mellitus with diabetic neuropathy, unspecified; E78.5 Hyperlipidemia, unspecified; I10 Essential (primary) hypertension; I25.2 Old myocardial infarction; F32.9 Major depressive disorder, single episode, unspecified; F41.9 Anxiety disorder, unspecified; F90.9 Attention-deficit hyperactivity disorder, unspecified type; F17.210 Nicotine dependence, cigarettes, uncomplicated; Z88.1 Allergy status to other antibiotic agents; Z88.2 Allergy status to sulfonamides; Z88.5 Allergy status to narcotic agent; Z88.8 Allergy status to other drugs, medicaments and biological substances; Z79.4 Long term (current) use of insulin; Z79.82 Long term (current) use of aspirin; Z79.899 Other long term (current) drug therapy; Z95.5 Presence of coronary angioplasty implant and graft; Z98.890 Other specified postprocedural states
CPT/HCPCS: 71046; 99283; J7512

== ENCOUNTER → 2019-11-16 | Outpatient (CLI) | payer OTHER ==
[2019-11-16 17:05] LABS: African American GFR (CKD) >90 (>60 ml/min/1.73 sqM); Blood Urea Nitrogen 19 mg/dL (7-17); Non-African American GFR(CKD) >90 (>60 ml/min/1.73 sqM)
--- NOTE | 2019-11-17 06:45 | CT ---
EXAMINATION TYPE: CT chest w con DATE OF EXAM: 11/16/2019 COMPARISON: CTA chest October 20, 2018. HISTORY: f/u aneurysm CT DLP: 450.8 mGycm. Automated Exposure Control for Dose Reduction was Utilized. TECHNIQUE: CT scan of the thorax is performed following with IV Contrast, patient injected with 100 mL of Isovue 300. FINDINGS: LUNGS: The lungs are grossly clear, there is no concerning parenchymal mass or nodule identified. T here is no pleural effusion or pneumothorax seen. The tracheobronchial tree is patent. MEDIASTINUM: There are no greater than 1 cm hilar or mediastinal lymph nodes. No cardiomegaly or pe ricardial effusion is seen. Ascending aorta measures up to 3.6 cm in diameter axial image 26 at the level of pulmonary artery, I get similar measurement on prior study. Prior report does not reference image and prior images are not labeled. Normal three-vessel origin from arch. Suspect coronary stent in the LAD and RCA distribution, correlate clinically. OTHER: Tiny splenule anterior to the spleen axial image 53 redemonstrated. Slight scoliotic curvature positioning. IMPRESSION: Ectasia/mild aneurysmal change of the ascending aorta up to 3.6 cm in diameter is felt st able.
--- NOTE | 2019-11-17 09:34 | XR ---
Right shoulder HISTORY: Pain 3 views of the right shoulder Bone mineralization, joint spaces and alignment are maintained. No fracture or dislocation. Right david g apex as visualized is normal. IMPRESSION: Normal right shoulder.
== END | disposition home or self-care (01) ==
LOC: RADCTMAIN 16:25
PROVIDERS: ATTEND Family Medicine
DX: I71.2 Thoracic aortic aneurysm, without rupture (principal); S46.011A Strain of muscle(s) and tendon(s) of the rotator cuff of right shoulder, initial encounter; Z88.1 Allergy status to other antibiotic agents; Z88.2 Allergy status to sulfonamides; Z88.8 Allergy status to other drugs, medicaments and biological substances
CPT/HCPCS: 82565; 84520; 73030; 71260; 36415; Q9967

== ENCOUNTER 2020-05-30 20:12 | Observation (INO) | payer OTHER ==
[2020-05-30] MEDS ORDERED: ACETAMINOPHEN TAB 500 MG TAB PO STA (20:21)
--- NOTE | 2020-05-30 20:26 | ED ---
Abdominal Pain HPI - General Chief Complaint: Abdominal Pain Stated Complaint: Abdominal Pain Time Seen by Provider: 05/30/20 20:21 Source: patient, RN notes reviewed, old records reviewed Mode of arrival: ambulatory Limitations: no limitations - History of Present Illness Initial Comments: This is a 39-year-old female DF for evaluation of significant complaints, she is having abdominal pain with nausea no active vomiting episode of diarrhea. Unsure if she has exposure sick contacts well she has developed significant fever. No prior history of similar complaints. She does suffer from diabetes high blood pressure high cholesterol MD Complaint: abdominal pain -: hour(s), days(s) Location: periumbilical Migration to: no migration Severity: moderate Quality: cramping, aching Consistency: intermittent Improves With: nothing Worsens With: nothing Context: sick contacts Associated Symptoms: nausea, vomiting, diarrhea, chills, anorexia - Related Data Home Medications Medication Instructions Recorded Confirmed Dextroamphetamine/Amphetamine 30 mg PO DAILY 06/19/14 05/31/20 [Adderall Xr] Escitalopram [Lexapro] 20 mg PO DAILY 01/12/18 05/31/20 Metoprolol Succinate (ER) [Toprol 25 mg PO DAILY 01/12/18 05/31/20 XL] buPROPion HCL [Wellbutrin XL] 150 mg PO DAILY 01/12/18 05/31/20 Atorvastatin [Lipitor] 80 mg PO DAILY 02/11/19 05/31/20 Cetirizine HCl [Zyrtec] 10 mg PO DAILY 02/11/19 05/31/20 Aspirin 81 mg PO DAILY 03/10/19 05/31/20 Famotidine [Pepcid] 20 mg PO DAILY 03/10/19 05/31/20 Losartan [Cozaar] 12.5 mg PO DAILY 03/10/19 05/31/20 Butalb/Acetaminophen/Caffeine 1 cap PO Q6H PRN 05/31/20 05/31/20 [Fioricet 50-300-40 mg Capsule] Insulin Glargine,Hum.rec.anlog 40 unit SQ DAILY 05/31/20 05/31/20 [Basaglar Kwikpen U-100] Insulin Lispro [Admelog] See Protocol SQ AC-TID 05/31/20 05/31/20 Pregabalin [Lyrica] 150 mg PO HS 05/31/20 05/31/20 traMADol HCL 50 - 100 mg PO Q6H PRN 05/31/20 05/31/20 Previous Rx's Medication Instructions Recorded Acetaminophen Tab [Tylenol] 650 mg PO Q4HR PRN tab 06/02/20 Amoxicillin/Potassium Clav 1 tab PO Q12HR 7 Days #14 tab 06/02/20 [Augmentin 875-125 Tablet] Hydrocortisone Suppository 25 mg RECTAL DAILY #15 supp 06/02/20 [Anusol-Hc] Amoxicillin/Potassium Clav 1 tab PO Q12HR 1 Days #20 tab 06/03/20 [Augmentin 875-125 Tablet] Allergies Allergy/AdvReac Type Severity Reaction Status Date / Time cefaclor [From Ceclor] Allergy Unknown Verified 05/31/20 07:49 Cephalosporins Allergy Unknown Verified 05/31/20 07:49 hydromorphone HCl Allergy Unknown Verified 05/31/20 07:49 [From Dilaudid] lithium [[place]] Allergy Unknown Verified 05/31/20 07:49 oxcarbazepine Allergy Unknown Verified 05/31/20 07:49 [From Trileptal] phenytoin sodium Allergy Unknown Verified 05/31/20 07:49 [From Dilantin] phenytoin sodium extended Allergy Unknown Verified 05/31/20 07:49 [From Dilantin] Sulfa (Sulfonamide Allergy Unknown Verified 05/31/20 07:49 Antibiotics) sulfamethoxazole Allergy Unknown Verified 05/31/20 07:49 [From Bactrim] trimethoprim [From Bactrim] Allergy Unknown Verified 05/31/20 07:49 Review of Systems ROS Statement: Those systems with pertinent positive or pertinent negative responses have been documented in the HPI. ROS Other: All systems not noted in ROS Statement are negative. Past Medical History Past Medical History: Chest Pain / Angina, Diabetes Mellitus, Hyperlipidemia, Hypertension, Myocardial Infarction ([place]) Additional Past Medical History / Comment(s): neuropathy, restless leg syndrome, recent admission for chest pain, anuerysm ascending aortic, Last Myocardial Infarction Date:: May 2017 History of Any Multi-Drug Resistant Organisms: None Reported Past Surgical History: Section, Heart Catheterization With Stent, Tubal Ligation, Uterine Ablation Additional Past Surgical History / Comment(s): sinues surgery, right breast cyst removal, 14 cysts taken of ovaries and tubes, Past Anesthesia/Blood Transfusion Reactions: No Reported Reaction Date of Last Stent Placement:: May 2017 Past Psychological History: ADD/ADHD, Anxiety, Depression Smoking Status: Current every day smoker Past Alcohol Use History: None Reported Past Drug Use History: Marijuana - Past Family History Father Family Medical History: No Reported History General Exam Limitations: no limitations General appearance: alert, in no apparent distress, anxious Head exam: Present: atraumatic, normocephalic, normal inspection Eye exam: Present: normal appearance, PERRL, EOMI. Absent: scleral icterus, conjunctival injection, periorbital swelling ENT exam: Present: normal exam, mucous membranes dry Neck exam: Present: normal inspection. Absent: tenderness, meningismus, lymphadenopathy Respiratory exam: Present: normal lung sounds bilaterally. Absent: respiratory distress, wheezes, rales, rhonchi, stridor Cardiovascular Exam: Present: normal rhythm, tachycardia, normal heart sounds. Absent: systolic murmur, diastolic murmur, rubs, gallop, clicks GI/Abdominal exam: Present: soft, normal bowel sounds. Absent: distended, tenderness, guarding, rebound, rigid Extremities exam: Present: normal inspection, full ROM, normal capillary refill. Absent: tenderness, pedal edema, joint swelling, calf tenderness Back exam: Present: normal inspection Neurological exam: Present: alert, oriented X3, CN II-XII intact Psychiatric exam: Present: normal affect, normal mood Skin exam: Present: warm, dry, intact, normal color. Absent: rash Course Vital Signs 05/30/20 05/30/20 05/30/20 20:16 22:05 22:28 Temperature 103.0 F H 98.5 F 98.5 F Pulse Rate 115 H 93 Respiratory 22 16 Rate Blood Pressure 149/100 126/63 O2 Sat by Pulse 99 95 Oximetry 05/31/20 00:51 Temperature Pulse Rate 87 Respiratory 16 Rate Blood Pressure 119/64 O2 Sat by Pulse 97 Oximetry - Reevaluation(s) Reevaluation #1: Medical record is reviewed Patient is seen and reevaluated with no worsening symptoms, symptoms are improving. Patient informed of findings, questions answered Patient is feeling improved here with fever control and symptom management although still feels dehydrated and weak Medical Decision Making - Medical Decision Making 39 female with abdominal pain fever, will admit for rule out coronavirus, symptom management - Lab Data Result diagrams: 06/01/20 12:23 06/01/20 12:23 Lab Results 05/30/20 05/30/20 05/30/20 Range/Units 20:21 20:21 20:21 WBC 6.2 (3.8-10.6) k/uL RBC 5.40 (3.80-5.40) m/uL Hgb 15.6 (11.4-16.0) gm/dL Hct 49.0 H (34.0-46.0) % MCV 90.8 (80.0-100.0) fL MCH 28.9 (25.0-35.0) pg MCHC 31.8 (31.0-37.0) g/dL RDW 12.2 (11.5-15.5) % Plt Count 137 L (150-450) k/uL Neutrophils % (Manual) 48 % Band Neuts % (Manual) 4 % Lymphocytes % (Manual) 42 % Monocytes % (Manual) 6 % Neutrophils # (Manual) 3.20 (1.3-7.7) k/uL Lymphocytes # (Manual) 2.60 (1.0-4.8) k/uL Monocytes # (Manual) 0.37 (0-1.0) k/uL Nucleated RBCs 0 (0-0) /100 WBC Manual Slide Review Performed PT 9.4 (9.0-12.0) sec INR 0.9 (<1.2) APTT 23.3 (22.0-30.0) sec D-Dimer 4.79 H (<0.60) mg/L FEU Sodium 131 L (137-145) mmol/L Potassium 4.0 (3.5-5.1) mmol/L Chloride 100 (98-107) mmol/L Carbon Dioxide 23 (22-30) mmol/L Anion Gap 8 mmol/L BUN 10 (7-17) mg/dL Creatinine 0.52 (0.52-1.04) mg/dL Est GFR (CKD-EPI)AfAm >90 (>60 ml/min/1.73 sqM) Est GFR (CKD-EPI)NonAf >90 (>60 ml/min/1.73 sqM) Glucose 262 H (74-99) mg/dL Estimated Ave Glu mg/dL Hemoglobin A1c (4.0-6.0) % Plasma Lactic Acid Andrew (0.7-2.0) mmol/L Calcium 9.0 (8.4-10.2) mg/dL Magnesium 1.8 (1.6-2.3) mg/dL Ferritin 270.4 (10.0-291.0) ng/mL Total Bilirubin 0.7 (0.2-1.3) mg/dL AST 118 H (14-36) U/L ALT 91 H (4-34) U/L Alkaline Phosphatase 279 H (38-126) U/L Lactate Dehydrogenase 1069 H (313-618) U/L C-Reactive Protein 33.8 H (<10.0) mg/L Total Protein 7.1 (6.3-8.2) g/dL Albumin 4.1 (3.5-5.0) g/dL Procalcitonin (0.02-0.09) ng/mL Urine Color Urine Appearance (Clear) Urine pH (5.0-8.0) Ur Specific [place] (1.001-1.035) Urine Protein (Negative) Urine Glucose (UA) (Negative) Urine Ketones (Negative) Urine Blood (Negative) Urine Nitrite (Negative) Urine Bilirubin (Negative) Urine Urobilinogen (<2.0) mg/dL Ur Leukocyte Esterase (Negative) Coronavirus (PCR) (Not Detected) Influenza Type A RNA (Not Detectd) Influenza Type B (PCR) (Not Detectd) 05/30/20 05/30/20 05/30/20 Range/Units 20:21 20:21 20:21 WBC (3.8-10.6) k/uL RBC (3.80-5.40) m/uL Hgb (11.4-16.0) gm/dL Hct (34.0-46.0) % MCV (80.0-100.0) fL MCH (25.0-35.0) pg MCHC (31.0-37.0) g/dL RDW (11.5-15.5) % Plt Count (150-450) k/uL Neutrophils % (Manual) % Band Neuts % (Manual) % Lymphocytes % (Manual) % Monocytes % (Manual) % Neutrophils # (Manual) (1.3-7.7) k/uL Lymphocytes # (Manual) (1.0-4.8) k/uL Monocytes # (Manual) (0-1.0) k/uL Nucleated RBCs (0-0) /100 WBC Manual Slide Review PT (9.0-12.0) sec INR (<1.2) APTT (22.0-30.0) sec D-Dimer (<0.60) mg/L FEU Sodium (137-145) mmol/L Potassium (3.5-5.1) mmol/L Chloride (98-107) mmol/L Carbon Dioxide (22-30) mmol/L Anion Gap mmol/L BUN (7-17) mg/dL Creatinine (0.52-1.04) mg/dL Est GFR (CKD-EPI)AfAm (>60 ml/min/1.73 sqM) Est GFR (CKD-EPI)NonAf (>60 ml/min/1.73 sqM) Glucose (74-99) mg/dL Estimated Ave Glu mg/dL Hemoglobin A1c (4.0-6.0) % Plasma Lactic Acid Andrew 1.3 (0.7-2.0) mmol/L Calcium (8.4-10.2) mg/dL Magnesium (1.6-2.3) mg/dL Ferritin (10.0-291.0) ng/mL Total Bilirubin (0.2-1.3) mg/dL AST (14-36) U/L ALT (4-34) U/L Alkaline Phosphatase (38-126) U/L Lactate Dehydrogenase (313-618) U/L C-Reactive Protein (<10.0) mg/L Total Protein (6.3-8.2) g/dL Albumin (3.5-5.0) g/dL Procalcitonin 0.24 H (0.02-0.09) ng/mL Urine Color Urine Appearance (Clear) Urine pH (5.0-8.0) Ur Specific [place] (1.001-1.035) Urine Protein (Negative) Urine Glucose (UA) (Negative) Urine Ketones (Negative) Urine Blood (Negative) Urine Nitrite (Negative) Urine Bilirubin (Negative) Urine Urobilinogen (<2.0) mg/dL Ur Leukocyte Esterase (Negative) Coronavirus (PCR) (Not Detected) Influenza Type A RNA Not Detected (Not Detectd) Influenza Type B (PCR) Not Detected (Not Detectd) 05/30/20 05/30/20 05/30/20 Range/Units 20:21 20:42 21:05 WBC (3.8-10.6) k/uL RBC (3.80-5.40) m/uL Hgb (11.4-16.0) gm/dL Hct (34.0-46.0) % MCV (80.0-100.0) fL MCH (25.0-35.0) pg MCHC (31.0-37.0) g/dL RDW (11.5-15.5) % Plt Count (150-450) k/uL Neutrophils % (Manual) % Band Neuts % (Manual) % Lymphocytes % (Manual) % Monocytes % (Manual) % Neutrophils # (Manual) (1.3-7.7) k/uL Lymphocytes # (Manual) (1.0-4.8) k/uL Monocytes # (Manual) (0-1.0) k/uL Nucleated RBCs (0-0) /100 WBC Manual Slide Review PT (9.0-12.0) sec INR (<1.2) APTT (22.0-30.0) sec D-Dimer (<0.60) mg/L FEU Sodium (137-145) mmol/L Potassium (3.5-5.1) mmol/L Chloride (98-107) mmol/L Carbon Dioxide (22-30) mmol/L Anion Gap mmol/L BUN (7-17) mg/dL Creatinine (0.52-1.04) mg/dL Est GFR (CKD-EPI)AfAm (>60 ml/min/1.73 sqM) Est GFR (CKD-EPI)NonAf (>60 ml/min/1.73 sqM) Glucose (74-99) mg/dL Estimated Ave Glu mg/dL 275 Hemoglobin A1c 11.2 H (4.0-6.0) % Plasma Lactic Acid Andrew (0.7-2.0) mmol/L Calcium (8.4-10.2) mg/dL Magnesium (1.6-2.3) mg/dL Ferritin (10.0-291.0) ng/mL Total Bilirubin (0.2-1.3) mg/dL AST (14-36) U/L ALT (4-34) U/L Alkaline Phosphatase (38-126) U/L Lactate Dehydrogenase (313-618) U/L C-Reactive Protein (<10.0) mg/L Total Protein (6.3-8.2) g/dL Albumin (3.5-5.0) g/dL Procalcitonin (0.02-0.09) ng/mL Urine Color Yellow Urine Appearance Clear (Clear) Urine pH 5.5 (5.0-8.0) Ur Specific [place] 1.024 (1.001-1.035) Urine Protein Negative (Negative) Urine Glucose (UA) 4+ H (Negative) Urine Ketones 2+ H (Negative) Urine Blood Negative (Negative) Urine Nitrite Negative (Negative) Urine Bilirubin Negative (Negative) Urine Urobilinogen 3.0 (<2.0) mg/dL Ur Leukocyte Esterase Negative (Negative) Coronavirus (PCR) Not Detected (Not Detected) Influenza Type A RNA (Not Detectd) Influenza Type B (PCR) (Not Detectd) - Radiology Data Radiology results: report reviewed (Chest x-rays negative for acute disease), image reviewed Disposition Clinical Impression: Abdominal pain, Fever Narrative: ro COVID Disposition: ADMITTED IP TO THIS HOSP Condition: Fair Is patient prescribed a controlled substance at d/c from ED?: No
[2020-05-30] MEDS ORDERED: PANTOPRAZOLE 40 MG/10 ML VIAL IVP STA (20:49)
[2020-05-30] MEDS ORDERED: ONDANSETRON 4 MG/2 ML VIAL IVP STA (20:49)
[2020-05-30] MEDS ORDERED: MORPHINE SULFATE 4 MG/ML SYRINGE IVP STA (20:49)
[2020-05-30] MEDS ORDERED: IBUPROFEN IV 800 MG in SODIUM CHLORIDE 0.9% 250 ML IV ONE (20:50)
[2020-05-30 20:56] LABS: HGB 15.6 gm/dL (11.4-16.0); MCH 28.9 pg (25.0-35.0); MCHC 31.8 g/dL (31.0-37.0); MCV 90.8 fL (80.0-100.0); Mean Platelet Volume 8.1; Platelet Count 137 k/uL (150-450); RDW 12.2 % (11.5-15.5); WBC 6.2 k/uL (3.8-10.6)
[2020-05-30 21:15] LABS: ALT 91 U/L (4-34); AST 118 U/L (14-36); African American GFR (CKD) >90 (>60 ml/min/1.73 sqM); Albumin 4.1 g/dL (3.5-5.0); Alkaline Phosphatase 279 U/L (38-126); Anion Gap 8 mmol/L; Blood Urea Nitrogen 10 mg/dL (7-17); C Reactive Protein 33.8 mg/L (<10.0); Carbon Dioxide 23 mmol/L (22-30); Chloride 100 mmol/L (98-107); Glucose 262 mg/dL (74-99); LDH 1069 U/L (313-618); Magnesium 1.8 mg/dL (1.6-2.3); Non-African American GFR(CKD) >90 (>60 ml/min/1.73 sqM); Sodium 131 mmol/L (137-145); Total Bilirubin 0.7 mg/dL (0.2-1.3); Total Protein 7.1 g/dL (6.3-8.2)
[2020-05-30 21:18] LABS: Appearance,Urine Clear (Clear); Bilirubin,Urine Negative (Negative); Blood,Urine Negative (Negative); Color,Urine Yellow; Glucose,Urine (UA) 4+ (Negative); Leukocyte Esterase,Urine Negative (Negative); Nitrite,Urine Negative (Negative); PH, Urine 5.5 (5.0-8.0); Protein,Urine Negative (Negative); Specific Gravity,Urine 1.024 (1.001-1.035)
[2020-05-30 21:19] LABS: Ketones,Urine 2+ (Negative)
[2020-05-30 22:12] LABS: Band Neutrophils % 4 %; Monocytes # (M) 0.37 k/uL (0-1.0); Neutrophils % (M) 48 %; Nucleated Red Blood Cells 0 /100 WBC (0-0); Total Cells Counted 100
[2020-05-30 22:13] LABS: INR 0.9 (<1.2); Partial Thromboplastin Time 23.3 sec (22.0-30.0); Prothrombin Time 9.4 sec (9.0-12.0)
--- NOTE | 2020-05-30 22:20 | XR ---
EXAMINATION TYPE: XR chest 1V DATE OF EXAM: 05/30/2020 COMPARISON: 04/23/2019 HISTORY: Cough TECHNIQUE: FINDINGS: Heart is normal. Lungs are clear. Diaphragm is normal. Bony thorax appears normal. There ar e no hilar masses. IMPRESSION: Normal chest. No change.
[2020-05-30 22:21] LABS: D-Dimer 4.79 mg/L FEU (<0.60)
[2020-05-30] MEDS ORDERED: ONDANSETRON 4 MG/2 ML VIAL IVP PRN (22:24)
[2020-05-31] MEDS: MORPHINE SULFATE 4 MG/ML SYRINGE IVP PRN ×4 (02:25→17:55)
[2020-05-31 07:17] LABS: Glucose,Whole Blood 244 mg/dL (75-99)
[2020-05-31] MEDS: INSULIN ASPART (NovoLOG) 100 UNIT/ML VIAL SQ SCH ×4 (08:15→20:39)
--- NOTE | 2020-05-31 09:14 | US ---
EXAMINATION TYPE: US gallbladder DATE OF EXAM: 05/31/2020 COMPARISON: NONE CLINICAL HISTORY: abd pain. abd pain EXAM MEASUREMENTS: Liver Length: 15.2 cm Gallbladder Wall: 0.2 cm CBD: 0.7 cm Right Kidney: 11.6 x 5.2 x 5.7 cm Pancreas: Limited by bowel gas Liver: wnl Gallbladder: wnl Evidence for sonographic Levy's sign: no CBD: wnl Right Kidney: wnl IMPRESSION: 1. Distal CBD slightly prominent measuring 7 mm (normal equal 6 mm). If there is concern for biliary obstruction correlate with either CT scan or MRCP.
[2020-05-31 09:43] LABS: Ferritin 270.4 ng/mL (10.0-291.0)
[2020-05-31] MEDS ORDERED: PANTOPRAZOLE 40 MG/10 ML VIAL IVP SCH (10:00)
[2020-05-31] MEDS ORDERED: Magnesium Replacement Protocol 1 EACH MISC MISCELLANE PRN (10:09)
[2020-05-31] MEDS ORDERED: NON FORMULARY DRUG (Insulin Glargine,Hum.Rec.Anlog [Basaglar Kwikpen U-100] 100 UNIT/ML In SQ SCH (10:15)
[2020-05-31] MEDS ORDERED: LOSARTAN 25 MG TAB PO SCH (10:15)
--- NOTE | 2020-05-31 11:58 | XR ---
EXAMINATION TYPE: XR KUB DATE OF EXAM: 05/31/2020 COMPARISON: 10/17/2018 HISTORY: Constipation TECHNIQUE: One view abdominal series FINDINGS: The osseous structures are intact. The bowel gas pattern is nonspecific. Retained fecal debris throu ghout the colon. Arthropathy of the hips. Correlate for femoral acetabular impingement. IMPRESSION: 1. Nonspecific abdomen. Retained fecal debris throughout the colon. Correlate for constipation. No o bstruction.
[2020-05-31 12:28] LABS: Glucose,Whole Blood 200 mg/dL (75-99)
[2020-05-31] MEDS: METOPROLOL SUCCINATE (ER) 25 MG TAB.ER.24H PO SCH (12:44)
[2020-05-31] MEDS: INSULIN DETEMIR (LEVEMIR) 100 UNIT/ML SYR SQ SCH (12:45)
[2020-05-31] MEDS ORDERED: MAGNESIUM CITRATE 296 ML BOTTLE PO ONE (13:41)
[2020-05-31 13:46] LABS: HCT 45.1 % (34.0-46.0); HGB 14.9 gm/dL (11.4-16.0); MCH 30.2 pg (25.0-35.0); MCV 91.4 fL (80.0-100.0); Mean Platelet Volume 8.1; Platelet Count 118 k/uL (150-450); RBC 4.93 m/uL (3.80-5.40); RDW 12.8 % (11.5-15.5); WBC 5.5 k/uL (3.8-10.6)
--- NOTE | 2020-05-31 13:50 | P.HPIM ---
History of Present Illness H&P Date: 05/31/20 Chief Complaint: Abdominal pain This is a 39-year-old female with with history of CAD, CO, diabetes mellitus, hypertension, ongoing nicotine dependence and multiple other medical issues presented to the ER with complaints of fevers, nausea, vomiting, rectal bleeding, abdominal pain. Apparently on Thursday patient had presented to [facility] for the same symptoms. Reports workup including abdominal CT completed and informed that it was all negative, discharged on Zofran. Symptoms persisted, patient returned to the same center. States waiting room at 30 people in and so therefore left and proceeded to [facility] ER. Reports bilateral lower quadrants abdominal pain. Bright red rectal bleeding a week ago followed by mucousy beeding yesterday. Isolated fever of 103, normal WBC. Hematology unremarkable with the exception platelets 137, hematocrit 49. Hemoglobin 15.6. D-dimer elevated; [facility] records being obtained. Maintaining O2 sats in the high 90s on room air. Denies shortness of breath. Sodium 131 potassium 4 BUN 10 creatinine 0.5 to peptic acid 1.3 calcium 9 magnesium 1.8 ferritin 270.4 total bili 0.7, elevated LFTs; AST 118, ALT 91, alk phos 279, lactate dehydrogenase 1069, CRP 33.8, pro calcitonin pending. UA negative. Influenza A and B not detected. Coronavirus testing results pending. Blood cultures ordered. Chest x-ray reported normal chest, no change. Denies chest pain or palpitations. Blood sugars elevated on admission at 262. Review of Systems ROS Statement: Those systems with pertinent positive or pertinent negative responses have been documented in the HPI. ROS Other: All systems not noted in ROS Statement are negative. Past Medical History Past Medical History: Chest Pain / Angina, Diabetes Mellitus, Hyperlipidemia, Hypertension, Myocardial Infarction ([place]) Additional Past Medical History / Comment(s): neuropathy, restless leg syndrome, recent admission for chest pain, anuerysm ascending aortic, Last Myocardial Infarction Date:: May 2017 History of Any Multi-Drug Resistant Organisms: None Reported Past Surgical History: Section, Heart Catheterization With Stent, Tubal Ligation, Uterine Ablation Additional Past Surgical History / Comment(s): sinsues surgery, right breast cyst removal, 14 cysts taken of ovaries and tubes, Past Anesthesia/Blood Transfusion Reactions: No Reported Reaction Date of Last Stent Placement:: May 2017 Past Psychological History: ADD/ADHD, Anxiety, Depression Smoking Status: Current every day smoker Past Alcohol Use History: None Reported Additional Past Alcohol Use History / Comment(s): currently trying to quit, down to 5 cigs/day Past Drug Use History: Marijuana - Past Family History Father Family Medical History: No Reported History Medications and Allergies Home Medications Medication Instructions Recorded Confirmed Type Dextroamphetamine/Amphetamine 30 mg PO DAILY 06/19/14 05/31/20 History [Adderall Xr] Escitalopram [Lexapro] 20 mg PO DAILY 01/12/18 05/31/20 History Metoprolol Succinate (ER) [Toprol 25 mg PO DAILY 01/12/18 05/31/20 History XL] buPROPion HCL [Wellbutrin XL] 150 mg PO DAILY 01/12/18 05/31/20 History Atorvastatin [Lipitor] 80 mg PO DAILY 02/11/19 05/31/20 History Cetirizine HCl [Zyrtec] 10 mg PO DAILY 02/11/19 05/31/20 History Aspirin 81 mg PO DAILY 03/10/19 05/31/20 History Famotidine [Pepcid] 20 mg PO DAILY 03/10/19 05/31/20 History Losartan [Cozaar] 12.5 mg PO DAILY 03/10/19 05/31/20 History Butalb/Acetaminophen/Caffeine 1 cap PO Q6H PRN 05/31/20 05/31/20 History [Fioricet 50-300-40 mg Capsule] Insulin Glargine,Hum.rec.anlog 40 unit SQ DAILY 05/31/20 05/31/20 History [Basaglar Kwikpen U-100] Insulin Lispro [Admelog] See Protocol SQ AC-TID 05/31/20 05/31/20 History Pregabalin [Lyrica] 150 mg PO HS 05/31/20 05/31/20 History traMADol HCL 50 - 100 mg PO Q6H PRN 05/31/20 05/31/20 History Allergies Allergy/AdvReac Type Severity Reaction Status Date / Time cefaclor [From Ceclor] Allergy Unknown Verified 05/31/20 07:49 Cephalosporins Allergy Unknown Verified 05/31/20 07:49 hydromorphone HCl Allergy Unknown Verified 05/31/20 07:49 [From Dilaudid] lithium [[place]] Allergy Unknown Verified 05/31/20 07:49 oxcarbazepine Allergy Unknown Verified 05/31/20 07:49 [From Trileptal] phenytoin sodium Allergy Unknown Verified 05/31/20 07:49 [From Dilantin] phenytoin sodium extended Allergy Unknown Verified 05/31/20 07:49 [From Dilantin] Sulfa (Sulfonamide Allergy Unknown Verified 05/31/20 07:49 Antibiotics) sulfamethoxazole Allergy Unknown Verified 05/31/20 07:49 [From Bactrim] trimethoprim [From Bactrim] Allergy Unknown Verified 05/31/20 07:49 Physical Exam Vitals: Vital Signs Temp Pulse Pulse Resp BP BP Pulse Ox 05/31/20 07:12 98.6 F 80 16 117/72 96 05/31/20 03:52 16 05/31/20 02:10 98.0 F 80 107/67 97 05/31/20 00:51 87 16 119/64 97 05/30/20 22:28 98.5 F 93 16 126/63 95 05/30/20 22:05 98.5 F 05/30/20 20:16 103.0 F H 115 H 22 149/100 99 Intake and Output 05/30/20 05/31/20 05/31/20 22:59 06:59 14:59 Intake Total 180 Balance 180 Intake: Oral 180 Other: Voiding Method Toilet # Voids 1 Weight 90.718 kg 90.718 kg PHYSICAL EXAM: VITAL SIGNS: As above GENERAL: Sitting up in bed, no acute distress HEENT: Conjunctivae normal. eyes normal. NECK: No JVD. No thyroid enlargement. No LNs CARDIOVASCULAR: S1, S2 regular. No murmur RESPIRATION: Breath sounds diminished in the bases. No rhonchi or crackles. No bronchial breathing. ABDOMEN: Soft, nondistended, diffuse tenderness, more localized in left lower quadrant and suprapubic. No guarding. no masses palpable. No ascites, No hepatosplenomegaly.Bowel sounds heard. LEGS: No edema. no swelling. No calf tenderness PSYCHIATRY: Alert and oriented X3, mood and affect normal. NERVOUS SYSTEM: Cranial N 2-12 grossly normal. Moves all 4 limbs. No focal deficits. Strength and sensation grossly intact.. Skin: Warm and dry, no rash Lymphatic system. No LN neck axilla. Results CBC & Chem 7: 05/30/20 20:21 05/30/20 20:21 Labs: Abnormal Lab Results - Last 24 Hours (Table) 05/30/20 05/30/20 05/30/20 Range/Units 20:21 20:21 20:21 Hct 49.0 H (34.0-46.0) % Plt Count 137 L (150-450) k/uL D-Dimer 4.79 H (<0.60) mg/L FEU Sodium 131 L (137-145) mmol/L Glucose 262 H (74-99) mg/dL POC Glucose (mg/dL) (75-99) mg/dL AST 118 H (14-36) U/L ALT 91 H (4-34) U/L Alkaline Phosphatase 279 H (38-126) U/L Lactate Dehydrogenase 1069 H (313-618) U/L C-Reactive Protein 33.8 H (<10.0) mg/L Procalcitonin (0.02-0.09) ng/mL Urine Glucose (UA) (Negative) Urine Ketones (Negative) 05/30/20 05/30/20 05/31/20 Range/Units 20:21 21:05 07:11 Hct (34.0-46.0) % Plt Count (150-450) k/uL D-Dimer (<0.60) mg/L FEU Sodium (137-145) mmol/L Glucose (74-99) mg/dL POC Glucose (mg/dL) 244 H (75-99) mg/dL AST (14-36) U/L ALT (4-34) U/L Alkaline Phosphatase (38-126) U/L Lactate Dehydrogenase (313-618) U/L C-Reactive Protein (<10.0) mg/L Procalcitonin 0.24 H (0.02-0.09) ng/mL Urine Glucose (UA) 4+ H (Negative) Urine Ketones 2+ H (Negative) Thrombosis Risk Factor Assmnt - Choose All That Apply Any of the Below Risk Factors Present?: Yes Each Factor Represents 1 point: Age 41-60 years, Obesity (BMI >25) Other Risk Factors: No Other congenital or acquired thrombophilia - If yes, enter type in comment: No Thrombosis Risk Factor Assessment Total Risk Factor Score: 2 Thrombosis Risk Factor Assessment Level: Low Risk Assessment and Plan Assessment: Acute abdominal pain with reported rectal bleeding with mucus, possible colitis. Workup in progress. Elevated LFTs, etiology unclear. Fuller virus testing in progress. Elevated d-dimer, recent workup at [facility] been obtained. Fever, isolated, etiology unclear, workup in progress. Hyponatremia CAD history of CO Diabetes mellitus, recently converted to Lantus secondary to malfunctioning/broken insulin pump, hemoglobin A1c pending. Hyperlipidemia Restless leg syndrome ADD, ADHD Anxiety, depression History of ovarian cysts. Ongoing nicotine dependence Plan: Continue on current medication regime ,monitoring and symptomatic treatment. Fuller virus testing pending. PPI added to med regimen. Hemoglobin A1c ordered /pending. Diet converted to NPO, Lantus home dose decreased until diet resumed. IV fluid hydration. GI consulted. Potential surgical consult with Dr. Hernandez pending GI recommendations. Ultrasound pending. KUB ordered. [facility] records from recent workup ordered. Home meds reviewed and resumed accordingly. The impression and plan of care has been dictated as directed. : I performed a history and examination of this patient, discussed the same with the dictator. I agree with the dictator's note ,documented as a scribe. Any additional findings or plans will be noted.
[2020-05-31] MEDS ORDERED: IOPAMIDOL CONTRAST (ORAL USE) VIAL PO PRN (15:18)
[2020-05-31] MEDS: ONDANSETRON 4 MG/2 ML VIAL IVP PRN (15:37)
[2020-05-31] MEDS: SODIUM CHLORIDE 0.9% 1,000 ML IV SCH (15:47)
[2020-05-31 16:00] LABS: Hemoglobin A1C 11.2 % (4.0-6.0)
[2020-05-31 17:20] LABS: Glucose,Whole Blood 141 mg/dL (75-99)
[2020-05-31] MEDS: AMPICILLIN-SULBACTAM 3 GM in SODIUM CHLORIDE 0.9% 100 ML IVPB SCH (17:44)
[2020-05-31] MEDS ORDERED: ACETAMINOPHEN TAB 325 MG TAB PO PRN (17:56)
--- NOTE | 2020-05-31 20:03 | CONS ---
CONSULTATION DATE OF CONSULTATION: 05/31/2020 REASON FOR CONSULTATION: Blood and mucus in the stool. HISTORY OF PRESENT ILLNESS: The patient is a 39-year-old white female with history of hypertension, anxiety, depression, hyperlipidemia, diabetes mellitus, admitted to the hospital because of lower abdominal pain and blood and mucus in the stool. The patient also had a fever of 103 this morning but denies any cough, shortness of breath. She came to the emergency room. T-max was 103.1. COVID was done which is still pending. The reason we were consulted is because of lower abdominal pain on and off for the last one week duration. She started having small amount of mucus with streaks of blood initially noted about a week ago and since then has been having this almost on a daily basis. She usually has bowel movements every other day but lately has been somewhat constipated. She stated that went to the emergency room at [facility] about a week ago and she had a CT scan of the abdomen and pelvis done, the results of which are not available at the time of this dictation. No history of inflammatory bowel disease. No family history of colitis or colorectal neoplasia. PAST MEDICAL HISTORY: Significant for hypertension, diabetes mellitus, anxiety, depression, hypercholesteremia, gastroesophageal reflux disease. MEDICATIONS: At home, aspirin, Lipitor, Zyrtec, Adderall, Lexapro, Pepcid, insulin, Cozaar, , Lyrica, Wellbutrin, and tramadol. ALLERGIES: BACTRIM, TRILEPTAL, LITHIUM, DILANTIN, CEPHALOSPORIN, DILAUDID. SOCIAL HISTORY: Chronic smoker. No alcohol use. FAMILY HISTORY: Unremarkable. REVIEW OF SYSTEMS: CARDIOPULMONARY: She denies any chest pain or shortness of breath. : No dysuria or hematuria. MUSCULOSKELETAL: Unremarkable. SKIN: Unremarkable. ENDOCRINE: Unremarkable. PSYCHIATRIC: Anxiety, depression. ENT: Vision unremarkable. NEUROLOGY: Unremarkable. CONSTITUTIONAL: Fever but no chills or night sweats. PAST SURGICAL HISTORY: Sinus surgery, right breast cyst removal, , cardiac catheterization, tubal ligation, and uterine ablation. PHYSICAL EXAMINATION: GENERAL: She appears comfortable, no apparent distress. VITAL SIGNS: Stable. Blood pressure is 149/100, T-max was 103, pulse rate 115, respirations 22. HEENT: Examination unremarkable. Conjunctivae are pink. Sclerae anicteric. Oral cavity no lesions. NECK: No JVD or lymph node enlargement. CHEST: Clear to auscultation. HEART: Regular rate and rhythm. ABDOMEN: Soft. There was mild tenderness in the left lower quadrant and the right lower quadrant area. The rest of the abdomen is benign. Bowel sounds are positive. No organomegaly. EXTREMITIES: No pedal edema. SKIN: No rashes. NEUROLOGIC: Alert and oriented x3. No focal deficits. LABS: WBC 6.2, hemoglobin 15.6, platelets normal. Basic metabolic panel is within normal limits. D-dimer elevated at 4.71. AST, ALT slightly elevated at 118 and 91 respectively. Alkaline phosphatase is 279, LDH is 1069, and CRP 33.8, prolactin level 0.24. Urinalysis was negative. Influenza A and B negative. Coronavirus PCR pending. IMPRESSION: 1. Fever of 1 day duration with upper respiratory symptoms. Coronavirus PCR is pending. 2. Lower abdominal pain with intermittent blood and mucus in the stool for the last one week duration. The patient had similar symptoms a week ago and went to the emergency room at [facility] and she had a CAT scan done. Results are not available but according to the patient it was within normal limits. At this time the possibility of colitis cannot be excluded. Lately she has been complaining of some constipation also. 3. Elevated serum transaminases, elevated LDH and CRP. Rule out COVID-19 infection. She did have an ultrasound of the gallbladder done that showed evidence of mild prominence of the distal common bile duct and gallbladder within normal limits. Liver was within normal limits. RECOMMENDATIONS: 1. Await coronavirus PCR. 2. Start on a clear liquid diet and advance as tolerated. 3. We will give her magnesium citrate for chronic constipation. 4. Will consider doing a colonoscopy once the Coronavirus PCR results are available. The plan was discussed with the patient and she is agreeable to it. Thank you for this consultation. MMODL / IJN: [id number] /
[2020-05-31 20:37] LABS: Glucose,Whole Blood 105 mg/dL (75-99)
[2020-06-01] MEDS: AMPICILLIN-SULBACTAM 3 GM in SODIUM CHLORIDE 0.9% 100 ML IVPB SCH ×5 (00:32→23:00)
[2020-06-01 00:47] LABS: African American GFR (CKD) 131.2 (60.0-200.0); Albumin 3.9 g/dL (3.80-4.90); Albumin/Globulin Ratio 2.05 (1.60-3.17); Anion Gap 7.5 mmol/L (4.00-12.00); BUN/Creat Ratio 16.67 Ratio (12.00-20.00); Calcium 8.6 mg/dL (8.7-10.3); Carbon Dioxide 24.5 mmol/L (21.6-31.8); Globulin 1.9 g/dL (1.6-3.3); Magnesium 1.7 mg/dL (1.5-2.4); Non-African American GFR(CKD) 113.2 (60.0-200.0); Potassium 4.2 mmol/L (3.5-5.5); Total Bilirubin 0.5 mg/dL (0.3-1.2); Total Protein 5.8 g/dL (6.2-8.2)
[2020-06-01] MEDS: SODIUM CHLORIDE 0.9% 1,000 ML IV SCH ×2 (04:17→16:40)
[2020-06-01 07:15] LABS: Glucose,Whole Blood 128 mg/dL (75-99)
[2020-06-01] MEDS: INSULIN ASPART (NovoLOG) 100 UNIT/ML VIAL SQ SCH ×4 (08:19→20:47)
[2020-06-01] MEDS: INSULIN DETEMIR (LEVEMIR) 100 UNIT/ML SYR SQ SCH ×3 (08:33→08:42)
[2020-06-01] MEDS: MORPHINE SULFATE 4 MG/ML SYRINGE IVP PRN ×3 (08:33→17:23)
[2020-06-01] MEDS: PANTOPRAZOLE 40 MG/10 ML VIAL IVP SCH (08:33)
[2020-06-01] MEDS: METOPROLOL SUCCINATE (ER) 25 MG TAB.ER.24H PO SCH (08:34)
[2020-06-01] MEDS: buPROPion XL 150 MG TAB.ER.24H PO SCH (08:34)
--- NOTE | 2020-06-01 08:47 | P.CONS ---
History of Present Illness - Reason for Consult Consult date: 05/31/20 Fever Requesting physician: Jasen Hidalgo - Chief Complaint abdominal pain and blood in the stool x 1 week - History of Present Illness Patient is a 39 year female presenting to the ER at [facility] for evaluation of low abdominal pain and bloody mucus in the stools the patient's symptom has been going on for about a week for the patient was initially evaluated at another facility and patient mentioned she did have CT of abdominal pelvis done which came back negative and the patient was discharged home on some Zofran patient is now presented back to [facility] ER with similar symptoms patient denies having any headache or URI symptoms, patient denies having any chest pain or shortness of breath or cough patient did have mild lower abdominal pain more of a colicky 5-6 out of 10 and no radiation some nausea but no vomiting she did have mild diarrhea and bloody mucus in the stools patient on arrival to the ER did have a fever of 103F, patient did have a normal white count no lymphopenia, d-dimer was elevated liver enzymes elevated same as for CRP and LDH, patient did have a chest x-ray was reported negative for any acute infiltrate, patient did have ultrasound of the liver and gallbladder did show distal CBD slightly prominent measuring 7 mm, that was within normal limits patient was admitted to the hospital infection he was consulted because of fever and multiple antibiotic ALLERGIES Review of Systems Positive point has been mentioned in the HPI rest of the systems are negative Past Medical History Past Medical History: Chest Pain / Angina, Diabetes Mellitus, Hyperlipidemia, Hypertension, Myocardial Infarction (SC) Additional Past Medical History / Comment(s): neuropathy, restless leg syndrome, recent admission for chest pain, anuerysm ascending aortic, Last Myocardial Infarction Date:: May 2017 History of Any Multi-Drug Resistant Organisms: None Reported Past Surgical History: Section, Heart Catheterization With Stent, Tubal Ligation, Uterine Ablation Additional Past Surgical History / Comment(s): sinsues surgery, right breast cyst removal, 14 cysts taken of ovaries and tubes, Past Anesthesia/Blood Transfusion Reactions: No Reported Reaction Date of Last Stent Placement:: May 2017 Past Psychological History: ADD/ADHD, Anxiety, Depression Smoking Status: Current every day smoker Past Alcohol Use History: None Reported Additional Past Alcohol Use History / Comment(s): currently trying to quit, down to 5 cigs/day Past Drug Use History: Marijuana - Past Family History Father Family Medical History: No Reported History Medications and Allergies Home Medications Medication Instructions Recorded Confirmed Type Dextroamphetamine/Amphetamine 30 mg PO DAILY 06/19/14 05/31/20 History [Adderall Xr] Escitalopram [Lexapro] 20 mg PO DAILY 01/12/18 05/31/20 History Metoprolol Succinate (ER) [Toprol 25 mg PO DAILY 01/12/18 05/31/20 History XL] buPROPion HCL [Wellbutrin XL] 150 mg PO DAILY 01/12/18 05/31/20 History Atorvastatin [Lipitor] 80 mg PO DAILY 02/11/19 05/31/20 History Cetirizine HCl [Zyrtec] 10 mg PO DAILY 02/11/19 05/31/20 History Aspirin 81 mg PO DAILY 03/10/19 05/31/20 History Famotidine [Pepcid] 20 mg PO DAILY 03/10/19 05/31/20 History Losartan [Cozaar] 12.5 mg PO DAILY 03/10/19 05/31/20 History Butalb/Acetaminophen/Caffeine 1 cap PO Q6H PRN 05/31/20 05/31/20 History [Fioricet 50-300-40 mg Capsule] Insulin Glargine,Hum.rec.anlog 40 unit SQ DAILY 05/31/20 05/31/20 History [Basaglar Kwikpen U-100] Insulin Lispro [Admelog] See Protocol SQ AC-TID 05/31/20 05/31/20 History Pregabalin [Lyrica] 150 mg PO HS 05/31/20 05/31/20 History traMADol HCL 50 - 100 mg PO Q6H PRN 05/31/20 05/31/20 History Allergies Allergy/AdvReac Type Severity Reaction Status Date / Time cefaclor [From Ceclor] Allergy Unknown Verified 05/31/20 07:49 Cephalosporins Allergy Unknown Verified 05/31/20 07:49 hydromorphone HCl Allergy Unknown Verified 05/31/20 07:49 [From Dilaudid] lithium [Kistler] Allergy Unknown Verified 05/31/20 07:49 oxcarbazepine Allergy Unknown Verified 05/31/20 07:49 [From Trileptal] phenytoin sodium Allergy Unknown Verified 05/31/20 07:49 [From Dilantin] phenytoin sodium extended Allergy Unknown Verified 05/31/20 07:49 [From Dilantin] Sulfa (Sulfonamide Allergy Unknown Verified 05/31/20 07:49 Antibiotics) sulfamethoxazole Allergy Unknown Verified 05/31/20 07:49 [From Bactrim] trimethoprim [From Bactrim] Allergy Unknown Verified 05/31/20 07:49 Physical Exam Vitals: Vital Signs Temp Pulse Pulse Resp BP BP Pulse Ox 05/31/20 07:12 98.6 F 80 16 117/72 96 05/31/20 03:52 16 05/31/20 02:10 98.0 F 80 107/67 97 05/31/20 00:51 87 16 119/64 97 05/30/20 22:28 98.5 F 93 16 126/63 95 05/30/20 22:05 98.5 F 05/30/20 20:16 103.0 F H 115 H 22 149/100 99 Intake and Output 05/31/20 05/31/20 05/31/20 06:59 14:59 22:59 Intake Total 180 Balance 180 Intake: Oral 180 Other: Voiding Method Toilet # Voids 1 Weight 90.718 kg GENERAL DESCRIPTION: Middle-aged female lying in bed, no distress. No tachypnea or accessory muscle of respiration use. HEENT: Shows Pallor , no scleral icterus. Oral mucous membrane is dry. No pharyngeal erythema or thrush NECK: Trachea central, no thyromegaly. LUNGS: Unlabored breathing. Clear to auscultation anteriorly. No wheeze or crackle. HEART: S1, S2, regular rate and rhythm. No loud murmur ABDOMEN: Soft, no tenderness , guarding or rigidity, no organomegaly EXTREMITIES: No edema of feet. SKIN: No rash, no masses palpable. NEUROLOGICAL: The patient is awake, alert, oriented x3, mood and affect normal. Results CBC & Chem 7: 05/31/20 13:02 05/31/20 13:02 Labs: Abnormal Lab Results - Last 24 Hours (Table) 05/30/20 05/30/20 05/30/20 Range/Units 20:21 20:21 20:21 Hct 49.0 H (34.0-46.0) % Plt Count 137 L (150-450) k/uL D-Dimer 4.79 H (<0.60) mg/L FEU Sodium 131 L (137-145) mmol/L Glucose 262 H (74-99) mg/dL POC Glucose (mg/dL) (75-99) mg/dL AST 118 H (14-36) U/L ALT 91 H (4-34) U/L Alkaline Phosphatase 279 H (38-126) U/L Lactate Dehydrogenase 1069 H (313-618) U/L C-Reactive Protein 33.8 H (<10.0) mg/L Procalcitonin (0.02-0.09) ng/mL Urine Glucose (UA) (Negative) Urine Ketones (Negative) 05/30/20 05/30/20 05/31/20 Range/Units 20:21 21:05 07:11 Hct (34.0-46.0) % Plt Count (150-450) k/uL D-Dimer (<0.60) mg/L FEU Sodium (137-145) mmol/L Glucose (74-99) mg/dL POC Glucose (mg/dL) 244 H (75-99) mg/dL AST (14-36) U/L ALT (4-34) U/L Alkaline Phosphatase (38-126) U/L Lactate Dehydrogenase (313-618) U/L C-Reactive Protein (<10.0) mg/L Procalcitonin 0.24 H (0.02-0.09) ng/mL Urine Glucose (UA) 4+ H (Negative) Urine Ketones 2+ H (Negative) 05/31/20 05/31/20 Range/Units 12:18 13:02 Hct (34.0-46.0) % Plt Count 118 L (150-450) k/uL D-Dimer (<0.60) mg/L FEU Sodium (137-145) mmol/L Glucose (74-99) mg/dL POC Glucose (mg/dL) 200 H (75-99) mg/dL AST (14-36) U/L ALT (4-34) U/L Alkaline Phosphatase (38-126) U/L Lactate Dehydrogenase (313-618) U/L C-Reactive Protein (<10.0) mg/L Procalcitonin (0.02-0.09) ng/mL Urine Glucose (UA) (Negative) Urine Ketones (Negative) Assessment and Plan Assessment: 1- patient with a fever of 103F and this patient predominantly with abdominal symptoms with lower abdominal pain and evidence of bloody mucus in the stool with concern for possible colitis however the patient did have a CT of abdominal pelvis about a week ago at an outside facility that was reported negative we will try to obtain the results of that CT, patient currently do not have any respiratory symptoms or any other obvious focus of infection besides possible abdominal source 2-Patient with multiple antibiotic ALLERGIES that would limit the number of antibiotic safe to use (1) Fever Current Visit: Yes Status: Acute Code(s): R50.9 - FEVER, UNSPECIFIED SNOMED Code(s): 954458567 Plan: 1- we will try to obtain CT of abdominal pelvis that was a few days ago 2- we will check a stool for C. diff and stool cultures 3- empirically add Unasyn 3 g every 6 hours 4- await infante PCR We will follow on clinical condition and cultures to further adjust medication if needed Thank you for this consultation will follow this patient with you Time with Patient: Greater than 30
[2020-06-01 11:38] LABS: Glucose,Whole Blood 140 mg/dL (75-99)
[2020-06-01 12:40] LABS: HCT 43.9 % (34.0-46.0); HGB 14.7 gm/dL (11.4-16.0); MCH 30.3 pg (25.0-35.0); MCHC 33.4 g/dL (31.0-37.0); MCV 90.7 fL (80.0-100.0); Mean Platelet Volume 7.9; Platelet Count 108 k/uL (150-450); RBC 4.84 m/uL (3.80-5.40); RDW 12.4 % (11.5-15.5); WBC 5.1 k/uL (3.8-10.6)
[2020-06-01 12:50] LABS: Amylase 35 U/L (30-110)
[2020-06-01 13:47] LABS: ALT 74 U/L (4-34); AST 68 U/L (14-36); African American GFR (CKD) >90 (>60 ml/min/1.73 sqM); Albumin 3.4 g/dL (3.5-5.0); Albumin/Globulin Ratio 1.2; Alkaline Phosphatase 227 U/L (38-126); Anion Gap 8 mmol/L; Blood Urea Nitrogen 6 mg/dL (7-17); Calcium 8.3 mg/dL (8.4-10.2); Carbon Dioxide 21 mmol/L (22-30); Chloride 106 mmol/L (98-107); Globulin 2.8 g/dL; Glucose 139 mg/dL (74-99); Non-African American GFR(CKD) >90 (>60 ml/min/1.73 sqM); Potassium 3.6 mmol/L (3.5-5.1); Sodium 135 mmol/L (137-145); Total Bilirubin 0.5 mg/dL (0.2-1.3); Total Protein 6.2 g/dL (6.3-8.2)
--- NOTE | 2020-06-01 13:51 | P.PN ---
Subjective Progress Note Date: 06/01/20 This is a 39-year-old female with with history of CAD, HI, diabetes mellitus, hypertension, ongoing nicotine dependence and multiple other medical issues presented to the ER with complaints of fevers, nausea, vomiting, rectal bleeding, abdominal pain. Apparently on Thursday patient had presented to [facility] for the same symptoms. Reports workup including abdominal CT completed and informed that it was all negative, discharged on Zofran. Symptoms persisted, patient returned to the same center. States waiting room at 30 people in and so therefore left and proceeded to [facility] ER. Reports bilateral lower quadrants abdominal pain. Bright red rectal bleeding a week ago followed by mucousy beeding yesterday. Isolated fever of 103, normal WBC. Hematology unremarkable with the exception platelets 137, hematocrit 49. Hemoglobin 15.6. D-dimer elevated; [place] records being obtained. Maintaining O2 sats in the high 90s on room air. Denies shortness of breath. Sodium 131 potassium 4 BUN 10 creatinine 0.5 to peptic acid 1.3 calcium 9 magnesium 1.8 ferritin 270.4 total bili 0.7, elevated LFTs; AST 118, ALT 91, alk phos 279, lactate dehydrogenase 1069, CRP 33.8, pro calcitonin pending. UA negative. Influenza A and B not detected. Coronavirus testing results pending. Blood cultures ordered. Chest x-ray reported normal chest, no change. Denies chest pain or palpitations. Blood sugars elevated on admission at 262. 06/01/20 evaluated by infectious disease and GI with recommendations noted and appreciated. Placed on empiric Unasyn as well as mag citrate for chronic constipation. T-max 100.4. Labs pending. Coronavirus not detected. Tolerating clear liquid diet with no nausea vomiting or diarrhea today.She reports one diarrhea and one emesis yesterday. Blood sugars controlled. [facility] CT of abdomen and pelvis reported unremarkable. No further rectal bleeding. CMP pending, hemoglobin stable, platelets trending down, 108. Objective - Vital Signs Vital signs: Vital Signs Temp 98.5 F 06/01/20 07:00 Pulse 77 06/01/20 07:00 Resp 16 06/01/20 07:00 BP 113/71 06/01/20 07:00 Pulse Ox 97 06/01/20 07:00 Intake & Output 05/31/20 06/01/20 06/01/20 18:59 06:59 18:59 Intake Total 180 Balance 180 Intake: Oral 180 Other: Voiding Method Toilet # Voids 1 1 - Labs CBC & Chem 7: 06/01/20 12:23 05/31/20 13:02 Labs: Abnormal Lab Results - Last 24 Hours (Table) 05/30/20 05/31/20 05/31/20 Range/Units 20:21 12:18 13:02 Plt Count (150-450) k/uL D-Dimer (<0.60) mg/L FEU Sodium 134 L (135-145) mmol/L Glucose 197 H (70-110) mg/dL POC Glucose (mg/dL) 200 H (75-99) mg/dL Hemoglobin A1c 11.2 H (4.0-6.0) % Calcium 8.6 L (8.7-10.3) mg/dL AST 83 H (13-35) U/L ALT 87 H (8-44) U/L Alkaline Phosphatase 237 H (41-126) U/L Total Protein 5.8 L (6.2-8.2) g/dL 05/31/20 05/31/20 05/31/20 Range/Units 13:02 15:39 17:15 Plt Count 118 L (150-450) k/uL D-Dimer 4.08 H (<0.60) mg/L FEU Sodium (135-145) mmol/L Glucose (70-110) mg/dL POC Glucose (mg/dL) 141 H (75-99) mg/dL Hemoglobin A1c (4.0-6.0) % Calcium (8.7-10.3) mg/dL AST (13-35) U/L ALT (8-44) U/L Alkaline Phosphatase (41-126) U/L Total Protein (6.2-8.2) g/dL 05/31/20 06/01/20 Range/Units 20:35 07:14 Plt Count (150-450) k/uL D-Dimer (<0.60) mg/L FEU Sodium (135-145) mmol/L Glucose (70-110) mg/dL POC Glucose (mg/dL) 105 H 128 H (75-99) mg/dL Hemoglobin A1c (4.0-6.0) % Calcium (8.7-10.3) mg/dL AST (13-35) U/L ALT (8-44) U/L Alkaline Phosphatase (41-126) U/L Total Protein (6.2-8.2) g/dL Microbiology - Last 24 Hours (Table) 05/30/20 20:21 Blood Culture - Preliminary Blood No Growth after 24 hours Assessment and Plan Assessment: Acute abdominal pain with reported rectal bleeding with mucus, possible colitis. Workup in progress. Elevated LFTs, etiology unclear. Fuller virus testing in progress. Elevated d-dimer Thrombocytopenia Fever, isolated, etiology unclear, workup in progress. Hyponatremia CAD history of HI Diabetes mellitus, recently converted to Lantus secondary to malfunctioning/broken insulin pump, hemoglobin A1c pending. Hyperlipidemia Restless leg syndrome ADD, ADHD Anxiety, depression History of ovarian cysts. Ongoing nicotine dependence Plan: Continue on current medication regime , PPI, monitoring and symptomatic treatment. Labs/A1c pending. IV fluid hydration. GI discussing potential colonoscopy. Further recommendations pending. The impression and plan of care has been dictated as directed. : I performed a history and examination of this patient, discussed the same with the dictator. I agree with the dictator's note ,documented as a scribe. Any additional findings or plans will be noted.
--- NOTE | 2020-06-01 14:11 | P.PN ---
Subjective Progress Note Date: 06/01/20 Principal diagnosis: Blood and mucus in stool This is a pleasant 39-year-old female with a history of hypertension, anxiety, depression, hyperlipidemia, diabetes mellitus who was admitted to the hospital because of lower abdominal pain and bloody mucus in the stool. The patient had a fever 2 nights ago of 103, and last night he spike of 100.3. COVID stain was completed and results are negative. The patient states the abdominal pain has been present for the last 1-2 weeks duration. She states most of the pain is in the lower abdomen, however has had some epigastric pain as well. She states that she started having a small amount of mucus with streaks of blood in her s tool 1 week ago, and has had some subsequent passing of bloody mucous. An x-ray of the abdomen was obtained which did show a nonspecific abdomen. Retained fecal debris throughout the colon. Correlate for constipation. No obstruction. Occurs from [facility] were requested and reviewed. CT of abdomen without acute findings. Patient was seen and examined, states the abdominal pain has improved some. She states she did have a small bowel movement with no blood noted. Nausea and vomiting are improving. Patient is having continuous decrease in her platelets, today's platelets are 108. WBC 5.1, hemoglobin 14.7. Serum transaminases mildly elevated, total bili 0.5, alkaline phosphatase 227, AST 68, ALT 74. Objective - Vital Signs Vital signs: Vital Signs Temp 98.5 F 06/01/20 07:00 Pulse 77 06/01/20 07:00 Resp 16 06/01/20 07:00 BP 113/71 06/01/20 07:00 Pulse Ox 97 06/01/20 07:00 Intake & Output 05/31/20 06/01/20 06/01/20 18:59 06:59 18:59 Intake Total 180 Balance 180 Intake: Oral 180 Other: Voiding Method Toilet # Voids 1 1 - Exam General appearance: The patient is alert, oriented, in no acute distress. HET: Head is normocephalic and atraumatic. Conjunctiva pink. Sclera anicteric. Neck: Supple without lymphadenopathy. Abdomen: Soft, mild tenderness in the lower abdomen with palpation, nondistended with bowel sounds. No guarding or rigidity. Extremities: Normal skin color and turgor. No pedal edema. Neurological: No focal deficits. Alert and oriented 3. - Labs CBC & Chem 7: 06/01/20 12:23 06/01/20 12:23 Labs: Abnormal Lab Results - Last 24 Hours (Table) 05/30/20 05/31/20 05/31/20 Range/Units 20:21 13:02 15:39 Plt Count (150-450) k/uL D-Dimer 4.08 H (<0.60) mg/L FEU Sodium 134 L (135-145) mmol/L Carbon Dioxide (22-30) mmol/L BUN (7-17) mg/dL Creatinine (0.52-1.04) mg/dL Glucose 197 H (70-110) mg/dL POC Glucose (mg/dL) (75-99) mg/dL Hemoglobin A1c 11.2 H (4.0-6.0) % Calcium 8.6 L (8.7-10.3) mg/dL AST 83 H (13-35) U/L ALT 87 H (8-44) U/L Alkaline Phosphatase 237 H (41-126) U/L Total Protein 5.8 L (6.2-8.2) g/dL Albumin (3.5-5.0) g/dL 05/31/20 05/31/20 06/01/20 Range/Units 17:15 20:35 07:14 Plt Count (150-450) k/uL D-Dimer (<0.60) mg/L FEU Sodium (135-145) mmol/L Carbon Dioxide (22-30) mmol/L BUN (7-17) mg/dL Creatinine (0.52-1.04) mg/dL Glucose (70-110) mg/dL POC Glucose (mg/dL) 141 H 105 H 128 H (75-99) mg/dL Hemoglobin A1c (4.0-6.0) % Calcium (8.7-10.3) mg/dL AST (13-35) U/L ALT (8-44) U/L Alkaline Phosphatase (41-126) U/L Total Protein (6.2-8.2) g/dL Albumin (3.5-5.0) g/dL 06/01/20 06/01/20 06/01/20 Range/Units 11:36 12:23 12:23 Plt Count 108 L (150-450) k/uL D-Dimer (<0.60) mg/L FEU Sodium 135 L (135-145) mmol/L Carbon Dioxide 21 L (22-30) mmol/L BUN 6 L (7-17) mg/dL Creatinine 0.48 L (0.52-1.04) mg/dL Glucose 139 H (70-110) mg/dL POC Glucose (mg/dL) 140 H (75-99) mg/dL Hemoglobin A1c (4.0-6.0) % Calcium 8.3 L (8.7-10.3) mg/dL AST 68 H (13-35) U/L ALT 74 H (8-44) U/L Alkaline Phosphatase 227 H (41-126) U/L Total Protein 6.2 L (6.2-8.2) g/dL Albumin 3.4 L (3.5-5.0) g/dL Microbiology - Last 24 Hours (Table) 05/30/20 20:21 Blood Culture - Preliminary Blood No Growth after 24 hours Assessment and Plan Assessment: 1. Fever of one-day duration upper respiratory symptoms. Fuller virus and influenza are negative. 2. Lower abdominal pain with intermittent bloody mucus in the stool for the last 1 week duration. Patient had similar symptoms a week ago went to the em ergency room at [facility] and underwent a CAT scan of the abdomen and pelvis. No acute findings noted. At this time the possibility of colitis cannot be excluded. She has been complaining of some constipation as well. 3. Elevated serum transaminases, elevated LDH and CRP. Coated 19 infection has been ruled out. She did have an ultrasound of the gallbladder done which showed evidence of mild prominence of the distal common bile duct and gallbladder within normal limits. Liver was within normal limits. 4. Thrombocytopenia 5. Elevated d-dimer, CT angiogram of chest completed negative for pulmonary embolism Plan: 1. Fuller virus PCR negative 2. Patient was given magnesium citrate for her chronic constipation with minimal results 3. Continue with clear liquid diet, nothing by mouth after midnight 4. Repeat labs in the a.m. 5. Will proceed with colonoscopy tomorrow 6. Bowel prep this evening Continue to follow with you closely The impression and plan of care has been dictated as directed. Dr. Dina Garcia I performed a history and examination of this patient, discussed the same with the dictator. I agree with the dictator's note ,documented as a scribe. Any additional findings or plans will be noted.
[2020-06-01 14:16] VITALS: BMI 34.3
--- NOTE | 2020-06-01 14:55 | CT ---
EXAMINATION TYPE: CT angio chest DATE OF EXAM: 06/01/2020 COMPARISON: None HISTORY: Abnormal labs CT DLP: 498.3 mGycm CONTRAST: CT chest with contrast and 3D reconstruction with MIP imaging is performed with IV Contrast, patient injected with 75 mL of Isovue 370. Contrast-enhanced CT of the chest was performed through the course of the pulmonary arteries with david g and mediastinal window settings submitted. 3D reconstruction with MIP imaging was also performed. PULMONARY ARTERIES: The pulmonary arteries and their major tributaries are patent. I do not see rekha dence for sizable filling defect to suggest pulmonary embolic process. LUNGS: The lungs are clear and free of infiltrate. No evidence for atelectasis. 4 mm nodular density left lateral. No pleural effusion. MEDIASTINUM: Thoracic aorta is of normal caliber,however, evaluation is limited given timing of the contrast bolus. If there is concern for thoracic aortic pathology consider [place]. Correlate clinicall y . The heart is not enlarged. No evidence for mediastinal mass. No mediastinal lymph nodes greater than 1cm. HILAR STRUCTURES: No evidence for mass. No hilar lymph nodes greater than 1 cm. UPPER ABDOMEN: No significant abnormality is seen. IMPRESSION: 1. No evidence for Pulmonary embolism at this time.
[2020-06-01 16:26] LABS: Glucose,Whole Blood 86 mg/dL (75-99)
[2020-06-01] MEDS ORDERED: PEG 3350-NA SULF,BICARB,CL/KCL 4,000 ML BOTTLE PO ONE (17:00)
[2020-06-01] MEDS: ONDANSETRON 4 MG/2 ML VIAL IVP PRN (18:29)
[2020-06-01 20:45] LABS: Glucose,Whole Blood 130 mg/dL (75-99)
[2020-06-01] MEDS ORDERED: NA PHOS,M-B/NA PHOS,DI-BA 133 ML ENEMA RECTAL ONE (21:00)
--- NOTE | 2020-06-01 21:14 | PN ---
PROGRESS NOTE DATE OF SERVICE: 06/01/2020. REASON FOR FOLLOWUP: Fever, possible abdominal source. INTERVAL HISTORY: Patient is afebrile. She did have a low-grade fever of 100.4 last night. The patient has been upset. The care provided to her by the nurse last night and that she can not eat. Denies having any chest pain. No shortness of breath or cough. No further vomiting. Still having loose stools and some bleeding. On examination, blood pressure 123/83 with a pulse of 86, temperature 98.6, 94% on room air. General description is a middle-aged female lying in bed in no distress. Respiratory system: Unlabored breathing, clear to auscultation anteriorly. Heart S1, S2. Regular rate and rhythm. ABDOMEN: Soft, no tenderness. LABS: Hemoglobin 14.7, white count 5.1, creatinine 0.48. Liver enzymes mildly improved. DIAGNOSTIC IMPRESSION AND PLAN: Patient with fever in this patient who did have a predominant gastrointestinal symptoms of bleeding per rectum. No diarrhea. CTs in the outpatient setting were negative. The patient is currently on antibiotic Unasyn. She also had a CT angiogram of the chest that was negative for PE and did not show any pneumonia. Await further workup per GI. Continue supportive care. MMODL / IJN: [id number] /
[2020-06-02] MEDS: MORPHINE SULFATE 4 MG/ML SYRINGE IVP PRN ×2 (01:38→09:20)
[2020-06-02] MEDS: AMPICILLIN-SULBACTAM 3 GM in SODIUM CHLORIDE 0.9% 100 ML IVPB SCH ×2 (05:10→12:24)
[2020-06-02] MEDS: SODIUM CHLORIDE 0.9% 1,000 ML IV SCH (05:10)
[2020-06-02] MEDS: ONDANSETRON 4 MG/2 ML VIAL IVP PRN (05:18)
[2020-06-02 05:55] LABS: Glucose,Whole Blood 96 mg/dL (75-99)
[2020-06-02 07:00] LABS: Glucose,Whole Blood 101 mg/dL (75-99)
[2020-06-02] MEDS: INSULIN ASPART (NovoLOG) 100 UNIT/ML VIAL SQ SCH ×2 (07:16→12:24)
[2020-06-02] MEDS: INSULIN DETEMIR (LEVEMIR) 100 UNIT/ML SYR SQ SCH (07:17)
[2020-06-02] MEDS ORDERED: PROPOFOL 10 MG/ML 20 ML VIAL IV ONE (07:49)
[2020-06-02] MEDS ORDERED: LACTATED RINGERS 1,000 ML IV ONE (07:51)
[2020-06-02] MEDS ORDERED: SODIUM CHLORIDE 0.9% 500 ML 500 ML IV ONE (07:51)
--- NOTE | 2020-06-02 08:23 | P.PCN ---
Date of Procedure: 06/02/20 Procedure(s) Performed: BRIEF HISTORY: Patient is a 39-year-old pleasant white female admitted hospital with rectal pain and rectal bleeding and mucus in the stool for the last 1 week duration. She never had these symptoms in the past. His been having constipation for the last few weeks. His and scheduled for colonoscopy to evaluate further. PROCEDURE PERFORMED: Colonoscopy with biopsy . PREOPERATIVE DIAGNOSIS: constipation and Villatoro's esophagus and a month duration IV sedation per Anesthesia. PROCEDURE: After informed consent was obtained, the patient, was brought into the endoscopy unit. IV sedation was administered by Anesthesia under continuous monitoring. Digital rectal examination was normal. Initially the Olympus CF-160 flexible video colonoscope was then inserted in the rectum, gradually advanced into the cecum without any difficulty. Careful examination was performed as the scope was gradually being withdrawn. Ileocecal valve and the appendiceal orifice were visualized and appeared normal. Prep was excellent. Mucosa of the cecum, ascending colon, transverse colon, descending colon, sigmoid colon, and rectum appeared normal. In the distal rectum just proximal to the dentate line there were superficial ulcerations with friable mucosa and almost involving the third of the circumference possibly related to stercoral ulcers. Multiple biopsies were done from this area. Doubt inflammatory bowel disease. Retroflexion was performed in the rectum and no lesions were seen. The patient tolerated the procedure well. IMPRESSION: Distal rectal superficial ulcerations involving the third of the circumference with friable mucosa suspicious for stercoral ulcer. Status post biopsies. Doubt inflammatory bowel disease Rest of the colon appeared normal. RECOMMENDATIONS: Findings of this examination were discussed with the patient. At this time will await the biopsy results. Will start her on Anusol suppository once at bedtime. Avoid straining and constipation. Continue with osmotic laxatives with the MiraLAX 1 scoop daily. She canbe discharged home today with outpatient follow-up in a week
[2020-06-02 08:43] VITALS: BP 133/84; PULSE 70; RESP 16; TEMP 98
[2020-06-02] MEDS: METOPROLOL SUCCINATE (ER) 25 MG TAB.ER.24H PO SCH (09:10)
[2020-06-02] MEDS: buPROPion XL 150 MG TAB.ER.24H PO SCH (09:10)
[2020-06-02] MEDS: PANTOPRAZOLE 40 MG/10 ML VIAL IVP SCH (09:10)
[2020-06-02 11:32] LABS: Glucose,Whole Blood 177 mg/dL (75-99)
--- NOTE | 2020-06-02 12:08 | P.DS ---
Providers Date of admission: 05/30/20 22:24 Expected date of discharge: 06/02/20 Attending physician: Jasen Hidalgo Consults: 05/30/20 22:24 Consult Physician Routine Consulting Provider: Tevin Goncalves Consult Reason/Comments: fever Do you want consulting provider notified?: Yes 05/31/20 09:50 Consult Physician Routine Consulting Provider: Babita Garcia Consult Reason/Comments: rectal bleeding with mucous, LLQ/ Suprapubic abd pain Do you want consulting provider notified?: Yes Primary care physician: Jasen [facility] Course: is is a 39-year-old female with with history of CAD, MA, diabetes mellitus, hypertension, ongoing nicotine dependence and multiple other medical issues presented to the ER with complaints of fevers, nausea, vomiting, rectal bleeding, abdominal pain. Apparently on Thursday patient had presented to [facility] for the same symptoms. Reports workup including abdominal CT completed and informed that it was all negative, discharged on Zofran. Symptoms persisted, patient returned to the same center. States waiting room at 30 people in and so therefore left and proceeded to [facility] ER. Reports bilateral lower quadrants abdominal pain. Bright red rectal bleeding a week ago followed by mucousy beeding yesterday. Isolated fever of 103, normal WBC. Hematology unremarkable with the exception platelets 137, hematocrit 49. Hemoglobin 15.6. D-dimer elevated; [place] records being obtained. Maintaining O2 sats in the high 90s on room air. Denies shortness of breath. Sodium 131 potassium 4 BUN 10 creatinine 0.5 to peptic acid 1.3 calcium 9 magnesium 1.8 ferritin 270.4 total bili 0.7, elevated LFTs; AST 118, ALT 91, alk phos 279, lactate dehydrogenase 1069, CRP 33.8, pro calcitonin pending. UA negative. Influenza A and B not detected. Coronavirus testing results pending. Blood cultures ordered. Chest x-ray reported normal chest, no change. Denies chest pain or palpitations. Blood sugars elevated on admission at 262. 06/01/20 evaluated by infectious disease and GI with recommendations noted and appreciated. Placed on empiric Unasyn as well as mag citrate for chronic constipation. T-max 100.4. Labs pending. Coronavirus not detected. Tolerating clear liquid diet with no nausea vomiting or diarrhea today.She reports one diarrhea and one emesis yesterday. Blood sugars controlled. Pia [place] CT of abdomen and pelvis reported unremarkable. No further rectal bleeding. CMP pending, hemoglobin stable, platelets trending down, 108. CTA of the chest was negative for pulmonary embolism. 06/02/2020: Patient remained afebrile for the past 48 hours. Colonoscopy was performed by Dr. Darden finding a distal superficial ulceration in the rectum approximately a third of the circumference of the friable mucosa. Patient understands indicate that she had anal intercourse approximately one month ago. Biopsies are pending and she was cleared by GI for discharge with follow-up as biopsies are pending. Patient felt much better. Patient tolerated lunch diet will be sent home once antibiotics recommendations are obtained from ID Patient Condition at Discharge: Good Plan - Discharge Summary Discharge Rx Participant: No New Discharge Prescriptions: New Acetaminophen Tab [Tylenol] 650 mg PO Q4HR PRN tab PRN Reason: Fever And/ Or Pain Hydrocortisone Suppository [Anusol-Hc] 25 mg RECTAL DAILY #15 supp Amoxicillin/Potassium Clav [Augmentin 875-125 Tablet] 1 tab PO Q12HR 7 Days #14 tab Amoxicillin/Potassium Clav [Augmentin 875-125 Tablet] 1 tab PO Q12HR 1 Days #20 tab Continue Dextroamphetamine/Amphetamine [Adderall Xr] 30 mg PO DAILY buPROPion HCL [Wellbutrin XL] 150 mg PO DAILY Metoprolol Succinate (ER) [Toprol XL] 25 mg PO DAILY Escitalopram [Lexapro] 20 mg PO DAILY Cetirizine HCl [Zyrtec] 10 mg PO DAILY Atorvastatin [Lipitor] 80 mg PO DAILY Losartan [Cozaar] 12.5 mg PO DAILY Famotidine [Pepcid] 20 mg PO DAILY Aspirin 81 mg PO DAILY Pregabalin [Lyrica] 150 mg PO HS Insulin Glargine,Hum.rec.anlog [Basaglar Kwikpen U-100] 40 unit SQ DAILY Butalb/Acetaminophen/Caffeine [Fioricet 50-300-40 mg Capsule] 1 cap PO Q6H PRN PRN Reason: Migraine Headache Insulin Lispro [Admelog] See Protocol SQ AC-TID traMADol HCL 50 - 100 mg PO Q6H PRN PRN Reason: Pain Discharge Medication List Dextroamphetamine/Amphetamine [Adderall Xr] 30 mg PO DAILY 06/19/14 [History] Escitalopram [Lexapro] 20 mg PO DAILY 01/12/18 [History] Metoprolol Succinate (ER) [Toprol XL] 25 mg PO DAILY 01/12/18 [History] buPROPion HCL [Wellbutrin XL] 150 mg PO DAILY 01/12/18 [History] Atorvastatin [Lipitor] 80 mg PO DAILY 02/11/19 [History] Cetirizine HCl [Zyrtec] 10 mg PO DAILY 02/11/19 [History] Aspirin 81 mg PO DAILY 03/10/19 [History] Famotidine [Pepcid] 20 mg PO DAILY 03/10/19 [History] Losartan [Cozaar] 12.5 mg PO DAILY 03/10/19 [History] Butalb/Acetaminophen/Caffeine [Fioricet 50-300-40 mg Capsule] 1 cap PO Q6H PRN 05/31/20 [History] Insulin Glargine,Hum.rec.anlog [Basaglar Kwikpen U-100] 40 unit SQ DAILY 05/31/20 [History] Insulin Lispro [Admelog] See Protocol SQ AC-TID 05/31/20 [History] Pregabalin [Lyrica] 150 mg PO HS 05/31/20 [History] traMADol HCL 50 - 100 mg PO Q6H PRN 05/31/20 [History] Acetaminophen Tab [Tylenol] 650 mg PO Q4HR PRN tab 06/02/20 [Rx] Amoxicillin/Potassium Clav [Augmentin 875-125 Tablet] 1 tab PO Q12HR 7 Days #14 tab 06/02/20 [Rx] Hydrocortisone Suppository [Anusol-Hc] 25 mg RECTAL DAILY #15 supp 06/02/20 [Rx] Amoxicillin/Potassium Clav [Augmentin 875-125 Tablet] 1 tab PO Q12HR 1 Days #20 tab 06/03/20 [Rx] Follow up Appointment(s)/Referral(s): Babita Garcia MD [STAFF PHYSICIAN] - 1 Week (office closed at time of discharge. Please call to make appointment.) Jasen Hidalgo MD [Primary Care Provider] - 1-2 days (office closed at time of discharge. Please call Thursday to make appointment) Patient Instructions/Handouts: Rectal Bleeding (DC), Acute Abdominal Pain (DC) Discharge Disposition: HOME SELF-CARE Pending Studies Pending Results: Colonoscopy biopsy from rectal lesion
--- NOTE | 2020-06-02 17:31 | PN ---
PROGRESS NOTE DATE OF SERVICE: 06/02/2020. REASON FOR FOLLOWUP: Fever with proctitis. INTERVAL COURSE: The patient is afebrile. She was seen on rounds this afternoon. The patient overall is feeling better. Breathing comfortably. No chest pain, shortness of breath. No cough. No abdominal pain and her diarrhea has improved. PHYSICAL EXAMINATION: Blood pressure 133/84 with a pulse of 70, temperature 98. She is 98% on room air. General description is a middle-aged female lying in bed in no distress. Respiratory system: Unlabored breathing, clear to auscultation anteriorly. Heart S1, S2. Regular rate and rhythm. ABDOMEN: Soft, no tenderness. LABS: No new labs have been obtained today. DIAGNOSTIC IMPRESSION AND PLAN: Patient with bleeding per rectum in this patient who did have a colonoscopy did show superficial ulceration which has been biopsied. The patient overall improvement of fever with Unasyn. Prescription for Augmentin has been sent. Close outpatient followup. MMODL / IJN: [id number] / MTDD
[2020-06-03] MEDS ORDERED: PANTOPRAZOLE 40 MG TABLET PO SCH (07:30)
== END 2020-06-02 15:33 | disposition home or self-care (01) ==
LOC: EC 20:12 → INTOOBSV 22:24 → 4SSUR 22:24 → UNDODISIN 06-02 15:33
PROVIDERS: ADMIT Family Medicine; ATTEND Family Medicine
PROC: 0DBP8ZX Excision of Rectum, Via Natural or Artificial Opening Endoscopic, Diagnostic (ICD-10-PCS; principal; 2020-06-02 07:25)
DX: K62.6 Ulcer of anus and rectum (principal); K62.5 Hemorrhage of anus and rectum; I25.10 Atherosclerotic heart disease of native coronary artery without angina pectoris; I25.2 Old myocardial infarction; E11.40 Type 2 diabetes mellitus with diabetic neuropathy, unspecified; I10 Essential (primary) hypertension; E78.00 Pure hypercholesterolemia, unspecified; R11.2 Nausea with vomiting, unspecified; K59.09 Other constipation; R63.0 Anorexia; R19.7 Diarrhea, unspecified; K21.9 Gastro-esophageal reflux disease without esophagitis; R79.89 Other specified abnormal findings of blood chemistry; Z20.828 Contact with and (suspected) exposure to other viral communicable diseases; G43.909 Migraine, unspecified, not intractable, without status migrainosus; D69.6 Thrombocytopenia, unspecified; R50.9 Fever, unspecified; E87.1 Hypo-osmolality and hyponatremia; E78.5 Hyperlipidemia, unspecified; G25.81 Restless legs syndrome; F90.9 Attention-deficit hyperactivity disorder, unspecified type; F41.9 Anxiety disorder, unspecified; F32.9 Major depressive disorder, single episode, unspecified; F17.210 Nicotine dependence, cigarettes, uncomplicated; R74.0 Nonspecific elevation of levels of transaminase and lactic acid dehydrogenase [LDH]; G62.9 Polyneuropathy, unspecified; Z79.899 Other long term (current) drug therapy; Z79.82 Long term (current) use of aspirin; Z79.4 Long term (current) use of insulin; Z88.5 Allergy status to narcotic agent; Z88.1 Allergy status to other antibiotic agents; Z88.2 Allergy status to sulfonamides; Z88.8 Allergy status to other drugs, medicaments and biological substances; E66.9 Obesity, unspecified; Z68.34 Body mass index [BMI] 34.0-34.9, adult; Z95.5 Presence of coronary angioplasty implant and graft; Z98.890 Other specified postprocedural states
CPT/HCPCS: 96376 ×2; 96365; 96366 ×2; 96375; 99285; 36415; 85379 ×2; 88305; 80053 ×3; 82728; 82150; 83605; 83615; 83690; 83735 ×3; 85025; 85027 ×2; 85610; 85730; 86140; 81003; 87040; 87502; 83036; 84145; 71045; 74018; 76705; 71275; 45380; G0378 ×4; U0003; J2270 ×4; J2405 ×4; J0295 ×3; J2704; C9113 ×4; Q9967; 96374

== ENCOUNTER → 2020-12-10 | Outpatient (CLI) | payer OTHER ==
--- NOTE | 2020-12-10 14:30 | MM ---
Reason for exam: clinical finding. Baseline mammogram. History: Benign US right core biopsy of the right breast, September 29, 2005. Excisional biopsy of the right breast, March 24, 2005. Taking hormonal contraceptives for 6 months beginning at age 24. Indicated problem(s): pain in the right breast. Physical Findings: Nurse did not find any significant physical abnormalities on exam. MG 3D Diag Mammo W/Cad JOHN Bilateral CC and MLO view(s) were taken. There are scattered fibroglandular densities. Previous mammotome biopsy in the right breast. There is no discrete abnormality. These results were verbally communicated with the patient and result sheet given to the patient on 12/10/20. ASSESSMENT: Benign, BI-RAD 2 RECOMMENDATION: Routine screening mammogram of both breasts in 1 year.
== END | disposition home or self-care (01) ==
LOC: RADMAMWWP 13:40
PROVIDERS: ATTEND Family Medicine
DX: N64.4 Mastodynia (principal)
CPT/HCPCS: 77062; 77066

== ENCOUNTER 2021-04-19 05:29 | Observation (INO) | payer OTHER ==
[2021-04-19] MEDS ORDERED: NITROGLYCERIN SL TABS 0.4 MG TAB SUBLINGUAL PRN (05:30)
--- NOTE | 2021-04-19 05:32 | ED ---
Chest Pain HPI - General Stated Complaint: Chest pain Time Seen by Provider: 04/19/21 05:30 Source: RN notes reviewed, old records reviewed Mode of arrival: EMS Limitations: no limitations - History of Present Illness Initial Comments: This is a 40-year-old female with known history of heart disease and prior stents coming in for cardiac evaluation today. Patient was seen at outpatient emergency department and transferred to our facility for evaluation regards to chest pain. Patient is presenting with chest pain currently although it is improved from prior chest pain evaluation. Patient has no recent travel history sick contacts he saw primary care on Thursday at that point was feeling well. This pain is episodic throughout most of the day today with persistent throug hout her prior ER stay and improved here. No shortness of breath or diaphoresis MD Complaint: chest pain -: hour(s) Onset: during rest, during exertion Pain Location: substernal, left chest Pain Radiation: LUE Severity: moderate Severity scale (1-10): 4 Quality: tightness Consistency: intermittent, now resolved Improves With: nothing Worsens With: nothing Anginal Symptoms: dyspnea Other Symptoms: palpitations Treatments Prior to Arrival: none - Related Data Home Medications Medication Instructions Recorded Confirmed Dextroamphetamine/Amphetamine 30 mg PO DAILY 06/19/14 05/31/20 [Adderall Xr] Escitalopram [Lexapro] 20 mg PO DAILY 01/12/18 05/31/20 Metoprolol Succinate (ER) [Toprol 25 mg PO DAILY 01/12/18 05/31/20 XL] buPROPion HCL [Wellbutrin XL] 150 mg PO DAILY 01/12/18 05/31/20 Atorvastatin [Lipitor] 80 mg PO DAILY 02/11/19 05/31/20 Cetirizine HCl [Zyrtec] 10 mg PO DAILY 02/11/19 05/31/20 Aspirin 81 mg PO DAILY 03/10/19 05/31/20 Famotidine [Pepcid] 20 mg PO DAILY 03/10/19 05/31/20 Losartan [Cozaar] 12.5 mg PO DAILY 03/10/19 05/31/20 Butalb/Acetaminophen/Caffeine 1 cap PO Q6H PRN 05/31/20 05/31/20 [Fioricet 50-300-40 mg Capsule] Insulin Glargine,Hum.rec.anlog 40 unit SQ DAILY 05/31/20 05/31/20 [Basaglar Kwikpen U-100] Insulin Lispro [Admelog] See Protocol SQ AC-TID 05/31/20 05/31/20 Pregabalin [Lyrica] 150 mg PO HS 05/31/20 05/31/20 traMADol HCL 50 - 100 mg PO Q6H PRN 05/31/20 05/31/20 Previous Rx's Medication Instructions Recorded Acetaminophen Tab [Tylenol] 650 mg PO Q4HR PRN tab 06/02/20 Amoxicillin/Potassium Clav 1 tab PO Q12HR 7 Days #14 tab 06/02/20 [Augmentin 875-125 Tablet] Hydrocortisone Suppository 25 mg RECTAL DAILY #15 supp 06/02/20 [Anusol-Hc] Amoxicillin/Potassium Clav 1 tab PO Q12HR 1 Days #20 tab 06/03/20 [Augmentin 875-125 Tablet] Allergies Allergy/AdvReac Type Severity Reaction Status Date / Time cefaclor [From Ceclor] Allergy Unknown Verified 05/31/20 07:49 Cephalosporins Allergy Unknown Verified 05/31/20 07:49 hydromorphone HCl Allergy Unknown Verified 05/31/20 07:49 [From Dilaudid] lithium [[place]] Allergy Unknown Verified 05/31/20 07:49 oxcarbazepine Allergy Unknown Verified 05/31/20 07:49 [From Trileptal] phenytoin sodium Allergy Unknown Verified 05/31/20 07:49 [From Dilantin] phenytoin sodium extended Allergy Unknown Verified 05/31/20 07:49 [From Dilantin] Sulfa (Sulfonamide Allergy Unknown Verified 05/31/20 07:49 Antibiotics) sulfamethoxazole Allergy Unknown Verified 05/31/20 07:49 [From Bactrim] trimethoprim [From Bactrim] Allergy Unknown Verified 05/31/20 07:49 Review of Systems ROS Statement: Those systems with pertinent positive or pertinent negative responses have been documented in the HPI. ROS Other: All systems not noted in ROS Statement are negative. EKG Findings - EKG Comments: EKG Findings:: EKG is sinus rhythm 62 NJ 148 QRS 94 QTC 452 Past Medical History Past Medical History: Chest Pain / Angina, Diabetes Mellitus, Hyperlipidemia, Hypertension, Myocardial Infarction (OR) Additional Past Medical History / Comment(s): neuropathy, restless leg syndrome, recent admission for chest pain, anuerysm ascending aortic, Last Myocardial Infarction Date:: May 2017 History of Any Multi-Drug Resistant Organisms: None Reported Past Surgical History: Section, Heart Catheterization With Stent, Tubal Ligation, Uterine Ablation Additional Past Surgical History / Comment(s): sinues surgery, right breast cyst removal, 14 cysts taken of ovaries and tubes, Past Anesthesia/Blood Transfusion Reactions: No Reported Reaction Date of Last Stent Placement:: May 2017 Past Psychological History: ADD/ADHD, Anxiety, Depression Smoking Status: Current every day smoker Past Alcohol Use History: None Reported Additional Past Alcohol Use History / Comment(s): currently trying to quit, down to 5 cigs/day Past Drug Use History: Marijuana - Past Family History Father Family Medical History: No Reported History General Exam General appearance: alert, in no apparent distress Head exam: Present: atraumatic, normocephalic, normal inspection Eye exam: Present: normal appearance, PERRL, EOMI. Absent: scleral icterus, conjunctival injection, periorbital swelling ENT exam: Present: normal exam, mucous membranes moist Neck exam: Present: normal inspection. Absent: tenderness, meningismus, lymphadenopathy Respiratory exam: Present: normal lung sounds bilaterally. Absent: respiratory distress, wheezes, rales, rhonchi, stridor Cardiovascular Exam: Present: regular rate, normal rhythm, normal heart sounds. Absent: systolic murmur, diastolic murmur, rubs, gallop, clicks GI/Abdominal exam: Present: soft, normal bowel sounds. Absent: distended, tenderness, guarding, rebound, rigid Extremities exam: Present: normal inspection, full ROM, normal capillary refill. Absent: tenderness, pedal edema, joint swelling, calf tenderness Back exam: Present: normal inspection Neurological exam: Present: alert, oriented X3, CN II-XII intact Psychiatric exam: Present: normal affect, normal mood Skin exam: Present: warm, dry, intact, normal color. Absent: rash Course Vital Signs 04/19/21 05:30 Temperature 97.9 F Pulse Rate 61 Respiratory 16 Rate Blood Pressure 147/91 O2 Sat by Pulse 96 Oximetry - Reevaluation(s) Reevaluation #1: 04/19/21 05:53 Medical record is reviewed Reevaluation #2: 04/19/21 05:53 Transferring paperwork is also been reviewed Reevaluation #3: 08/20/21 05:53 Spoke with patient regarding findings, questions answered - Consultations Consultation #1: (Dr. Hidalgo who agrees to admit this patient Chest Pain MDM - MDM 40 female with history of heart disease coming in for chest pain observation ruling out acute coronary syndrome Disposition Clinical Impression: Chest pain Disposition: ADMITTED IP TO THIS HOSP Condition: Undetermined Is patient prescribed a controlled substance at d/c from ED?: No
[2021-04-19] MEDS: MORPHINE SULFATE 4 MG/ML SYRINGE IV PRN ×3 (06:00→15:35)
--- NOTE | 2021-04-19 12:40 | P.CRDCN ---
History of Present Illness History of present illness: HISTORY OF PRESENTING ILLNESS This is a pleasant 40-year-old female past medical history significant for coronary artery disease with stent placement of the LAD and mid and distal RCA done in 2017 following non-ST elevation myocardial infarction, dyslipidemia, type 2 diabetes. She used to follow in the office with Dr. England in 2019. 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 We have been asked to see in consultation for chest pain. Patient is seen and examined in the emergency department. Patient seen and examined at bedside, was transferred from [place] emergency department on 26 mile. She states that yesterday 04/18/21 when she was on lunch at work she started to have left-sided chest pain radiating to her arm, back and shoulder. She also has associated shortness of breath. The chest is aggravated by taking a deep breath, and her chest is tenderness to palpation. She also states that her left arm is sore with movement. She denies any injury to her chest or her arms. She denies any symptoms of nausea, diaphoresis. She denies symptoms of orthopnea PND. She is a current every day smoker, denies alcohol or illicit drug use. DIAGNOSTICS EKG reveals sinus rhythm, heart rate 62, no significant ST or T-wave abnormalities. Most recent stress test cardiolite 02/24/2019- 1.5mm horizontal ST segment depression persisted post exercise period suggestive of ischemia. nuclear study did not show any evidence of significant ischemia Last Cardiac Catheterization 02/2019 Patent stent in the mid LAD, patent stent distal RCA. intermediate lesion involving the mid RCA appeared to be 50%. LAD distal to the stent has a lesion in the range of 30-40% Most recent echocardiogram 12/2017-EF 55-60% Chest xray at [place] no acute cardiopulmonary process. Laboratory reviewed from [place] and here. Troponin negative x 3, WBC 7.5, hemoglobin 13.5, sodium 136, potassium 3.4, BUN 16, serum creatinine 0.7 Current home cardiac medications include atorvastatin 80 mg daily. REVIEW OF SYSTEMS At the time of my exam: CONSTITUTIONAL: Denies fever or chills. CARDIOVASCULAR: Positive chest pain, positive shortness of breath Denies , orthopnea, PND or palpitations. RESPIRATORY: Denies cough. GASTROINTESTINAL: Denies abdominal pain, diarrhea, constipation, nausea or vomiting. MUSCULOSKELETAL: Positive left arm pain. NEUROLOGIC: Denies numbness, tingling, headacbe or weakness. ENDOCRINE: Denies fatigue, weight change, polydipsia or polyurina. GENITOURINARY: Denies burning, hematuria or urgency with micturation. HEMATOLOGIC: Denies history of anemia or bleeding. PHYSICAL EXAMINATION Blood pressure 139/76, heart rate 60, afebrile, maintaining oxygen saturations 90% on room air CONSTITUTIONAL: No apparent distress. HEENT: Head is normocephalic. Pupils are equal, round. Sclerae anicteric. Mucous membranes of the mouth are moist. No JVD. No carotid bruit. CHEST EXAMINATION: Lungs are clear to auscultation. No chest wall tenderness is noted on palpation or with deep breathing. HEART EXAMINATION: Regular rate and rhythm. S1, S2 heard. No murmurs, gallops or rub. ABDOMEN: Soft, nontender. Positive bowel sounds. EXTREMITIES: 2+ peripheral pulses, no lower extremity edema and no calf tenderness. SKIN: intact NEUROLOGIC EXAMINATION: Patient is awake, alert and oriented x3. ASSESSMENT Chest pain, atypical acute coronary syndrome has been ruled out. Appears musculoskeletal in nature. Coronary artery disease with stent placement of the LAD and mid and distal RCA done in 2017 following non-ST elevation myocardial infarction Dyslipidemia Type 2 diabetes. PLAN Continue aspirin and statin An acute coronary event has been ruled out with no EKG evidence of ischemia and negative cardiac enzymes. Obtain 2D echocardiogram and doppler study to assess cardiac structure and function. Recommend stress test, however, patient ate and had caffeine this morning. If patient's echocardiogram with no acute findings, she is hemodynamically stable, ok to monitor and discharge to follow up outpatient for a outpatient stress test. Patient can follow up with Dr. Zheng Smoking cessation discussed and highly recommended. Further recommendations based on clinical course Thank you kindly for this consultation. Nurse Practitioner note has been reviewed, I agree with a documented findings and plan of care. Patient was seen and examined. Past Medical History Past Medical History: Chest Pain / Angina, Diabetes Mellitus, Hyperlipidemia, Hypertension, Myocardial Infarction ([place]) Additional Past Medical History / Comment(s): neuropathy, restless leg syndrome, recent admission for chest pain, anuerysm ascending aortic, Last Myocardial Infarction Date:: May 2017 History of Any Multi-Drug Resistant Organisms: None Reported Past Surgical History: Section, Heart Catheterization With Stent, Tubal Ligation, Uterine Ablation Additional Past Surgical History / Comment(s): sinues surgery, right breast cyst removal, 14 cysts taken of ovaries and tubes, Past Anesthesia/Blood Transfusion Reactions: No Reported Reaction Date of Last Stent Placement:: May 2017 Past Psychological History: ADD/ADHD, Anxiety, Depression Smoking Status: Current every day smoker Past Alcohol Use History: None Reported Additional Past Alcohol Use History / Comment(s): currently trying to quit, down to 5 cigs/day Past Drug Use History: Marijuana - Past Family History Father Family Medical History: No Reported History Medications and Allergies Home Medications Medication Instructions Recorded Confirmed Type Dextroamphetamine/Amphetamine 30 mg PO DAILY@1500 06/19/14 04/19/21 History [Adderall Xr] Atorvastatin [Lipitor] 80 mg PO DAILY@1500 02/11/19 04/19/21 History Cetirizine HCl [Zyrtec] 10 mg PO DAILY@1500 02/11/19 04/19/21 History Butalb/Acetaminophen/Caffeine 1 cap PO Q6H PRN 05/31/20 04/19/21 History [Fioricet 50-300-40 mg Capsule] traMADol HCL 50 mg PO Q6H PRN 05/31/20 04/19/21 History Cholecalciferol (Vitamin D3) 250 mcg PO MOTUWETHFR@1500 04/19/21 04/19/21 History [Vitamin D3 (125 MCG = 5,000 IU)] DULoxetine HCL [Cymbalta] See Taper PO DAILY@1500 04/19/21 04/19/21 History INSULIN LISPRO (For Pump) [humaLOG 0.01 units SQ-PUMP CONTINUOUS 04/19/21 04/19/21 History (For Pump)] Pregabalin [Lyrica] 150 mg PO BID@0000,1300 04/19/21 04/19/21 History Allergies Allergy/AdvReac Type Severity Reaction Status Date / Time cefaclor [From Ceclor] Allergy Unknown Verified 04/19/21 06:53 Cephalosporins Allergy Unknown Verified 04/19/21 06:53 hydromorphone HCl Allergy Unknown Verified 04/19/21 06:53 [From Dilaudid] lithium [Harvey] Allergy Unknown Verified 04/19/21 06:53 oxcarbazepine Allergy Unknown Verified 04/19/21 06:53 [From Trileptal] phenytoin sodium Allergy Unknown Verified 04/19/21 06:53 [From Dilantin] phenytoin sodium extended Allergy Unknown Verified 04/19/21 06:53 [From Dilantin] Sulfa (Sulfonamide Allergy Unknown Verified 04/19/21 06:53 Antibiotics) sulfamethoxazole Allergy Unknown Verified 04/19/21 06:53 [From Bactrim] trimethoprim [From Bactrim] Allergy Unknown Verified 04/19/21 06:53 Physical Exam Vitals: Vital Signs Temp Pulse Resp BP Pulse Ox 04/19/21 06:40 60 16 129/78 96 04/19/21 05:30 97.9 F 61 16 147/91 96 Intake and Output 04/18/21 04/19/21 04/19/21 22:59 06:59 14:59 Other: Weight 79.832 kg Results Current Medications Generic Name Dose Route Start Last Admin Trade Name Freq PRN Reason Stop Dose Admin Aspirin 325 mg 04/20/21 09:00 Aspirin 325 Mg Tab PO DAILY BOUBACAR Morphine Sulfate 4 mg 04/19/21 05:30 04/19/21 06:00 Morphine Sulfate 4 Mg/Ml Syringe IV 4 mg Q4HR PRN Administration Chest Pain Nitroglycerin 0.4 mg 04/19/21 05:30 Nitroglycerin Sl Tabs 0.4 Mg Tab SUBLINGUAL Q5M PRN Chest Pain Intake and Output 04/18/21 04/19/21 04/19/21 22:59 06:59 14:59 Other: Weight 79.832 kg
[2021-04-19] MEDS ORDERED: BUTALB/APAP/CAFF 50-325-40MG TAB PO PRN (13:10)
[2021-04-19] MEDS ORDERED: traMADol 50 MG TAB PO PRN (13:10)
--- NOTE | 2021-04-19 13:10 | P.HPIM ---
History of Present Illness H&P Date: 04/19/21 Chief Complaint: Chest pain This is a 40-year-old female patient with a known history of type 2 diabetes. I'd seen her in the office on Thursday for diabetic evaluation she was doing well at that time. She has an extensive history of coronary disease. She had a cardiac catheterization last on February 2019 with known CAD. She is had cardiac stents. He smokes under a pack a day. She reports last night, while at work, she began experiencing chest pressure midsternal that eventually radiated to her left arm. She went to [place] emergency room and was seen and evaluated. She is found to have negative troponins. She was given morphine and nitroglycerin. She was transferred here to [facility]. She reports her chest pain since resolved. She denied shortness of breath, nausea or vomiting diarrhea or constipation with the previous episode. Review of Systems All systems: negative Past Medical History Past Medical History: Chest Pain / Angina, Diabetes Mellitus, Hyperlipidemia, Hypertension, Myocardial Infarction ([place]) Additional Past Medical History / Comment(s): neuropathy, restless leg syndrome, recent admission for chest pain, anuerysm ascending aortic, Last Myocardial Infarction Date:: May 2017 History of Any Multi-Drug Resistant Organisms: None Reported Past Surgical History: Section, Heart Catheterization With Stent, Tubal Ligation, Uterine Ablation Additional Past Surgical History / Comment(s): sinues surgery, right breast cyst removal, 14 cysts taken of ovaries and tubes, Past Anesthesia/Blood Transfusion Reactions: No Reported Reaction Date of Last Stent Placement:: May 2017 Past Psychological History: ADD/ADHD, Anxiety, Depression Smoking Status: Current every day smoker Past Alcohol Use History: None Reported Additional Past Alcohol Use History / Comment(s): currently trying to quit, down to 5 cigs/day Past Drug Use History: Marijuana - Past Family History Father Family Medical History: No Reported History Medications and Allergies Home Medications Medication Instructions Recorded Confirmed Type Dextroamphetamine/Amphetamine 30 mg PO DAILY@1500 06/19/14 04/19/21 History [Adderall Xr] Atorvastatin [Lipitor] 80 mg PO DAILY@1500 02/11/19 04/19/21 History Cetirizine HCl [Zyrtec] 10 mg PO DAILY@1500 02/11/19 04/19/21 History Butalb/Acetaminophen/Caffeine 1 cap PO Q6H PRN 10/01/20 08/20/21 History [Fioricet 50-300-40 mg Capsule] traMADol HCL 50 mg PO Q6H PRN 05/31/20 04/19/21 History Cholecalciferol (Vitamin D3) 250 mcg PO MOTUWETHFR@1500 04/19/21 04/19/21 History [Vitamin D3 (125 MCG = 5,000 IU)] DULoxetine HCL [Cymbalta] See Taper PO DAILY@1500 04/19/21 04/19/21 History INSULIN LISPRO (For Pump) [humaLOG 0.01 units SQ-PUMP CONTINUOUS 04/19/21 04/19/21 History (For Pump)] Pregabalin [Lyrica] 150 mg PO BID@0000,1300 04/19/21 04/19/21 History Allergies Allergy/AdvReac Type Severity Reaction Status Date / Time cefaclor [From Ceclor] Allergy Unknown Verified 04/19/21 06:53 Cephalosporins Allergy Unknown Verified 04/19/21 06:53 hydromorphone HCl Allergy Unknown Verified 04/19/21 06:53 [From Dilaudid] lithium [Retsof] Allergy Unknown Verified 04/19/21 06:53 oxcarbazepine Allergy Unknown Verified 04/19/21 06:53 [From Trileptal] phenytoin sodium Allergy Unknown Verified 04/19/21 06:53 [From Dilantin] phenytoin sodium extended Allergy Unknown Verified 04/19/21 06:53 [From Dilantin] Sulfa (Sulfonamide Allergy Unknown Verified 04/19/21 06:53 Antibiotics) sulfamethoxazole Allergy Unknown Verified 04/19/21 06:53 [From Bactrim] trimethoprim [From Bactrim] Allergy Unknown Verified 04/19/21 06:53 Physical Exam Vitals: Vital Signs Temp Pulse Resp BP Pulse Ox 04/19/21 11:24 60 18 139/76 99 04/19/21 10:19 65 16 129/76 98 04/19/21 07:10 98.0 F 66 16 124/62 98 04/19/21 06:40 60 16 129/78 96 04/19/21 05:30 97.9 F 61 16 147/91 96 Intake and Output 04/18/21 04/19/21 04/19/21 22:59 06:59 14:59 Other: Weight 79.832 kg GENERAL: Fatigued well-nourished and in no acute distress. HEAD: Atraumatic, normocephalic. EYES: Pupils equal round and reactive to light, extraocular movements intact, sclera anicteric, conjunctiva are normal. ENT:nares patent, oropharynx clear without exudates. Moist mucous membranes. NECK: Normal range of motion, supple without lymphadenopathy or JVD, no thyromegaly LUNGS: Breath sounds coarse to auscultation bilaterally and equal. No wheezes rales or rhonchi. HEART: Regular rate and rhythm without murmurs, rubs or gallops.S1S2 Normal ABDOMEN: Soft, nontender, normoactive bowel sounds. No guarding, no rebound. No masses appreciated. EXTREMITIES: Normal range of motion, no pitting or edema. No clubbing or cyanosis. NEUROLOGICAL: Cranial nerves II through XII grossly intact. Normal speech, normal gait. PSYCH: Normal mood, normal affect. SKIN: Warm, Dry, normal turgor, no rashes or lesions noted. Thrombosis Risk Factor Assmnt - DVT/VTE Prophylaxis DVT/VTE Prophylaxis: Low risk, early ambulation encouraged Assessment and Plan (1) Chest pain Current Visit: Yes Status: Acute Code(s): R07.9 - CHEST PAIN, UNSPECIFIED SNOMED Code(s): 87327107 (2) CAD (coronary artery disease) Current Visit: No Status: Acute Code(s): I25.10 - ATHSCL HEART DISEASE OF [place] CORONARY ARTERY W/O ANG PCTRS SNOMED Code(s): 14381957 (3) Diabetes Current Visit: No Status: Acute Code(s): E11.9 - TYPE 2 DIABETES MELLITUS WITHOUT COMPLICATIONS SNOMED Code(s): 77773984 (4) Essential (primary) hypertension Current Visit: No Status: Acute Code(s): I10 - ESSENTIAL (PRIMARY) HYPERTENSION SNOMED Code(s): 00814785 (5) HLD (hyperlipidemia) Current Visit: No Status: Acute Code(s): E78.5 - HYPERLIPIDEMIA, UNSPECIFIED SNOMED Code(s): 37977771 (6) Insulin pump in place Current Visit: No Status: Acute Code(s): Z96.41 - PRESENCE OF INSULIN PUMP (EXTERNAL) (INTERNAL) SNOMED Code(s): 356298334 (7) Old [place] (myocardial infarction) Current Visit: No Status: Acute Code(s): I25.2 - OLD MYOCARDIAL INFARCTION SNOMED Code(s): 2656825 Plan: I'll wait on cardiology evaluation. She'll continue on her medication of morphine and nitroglycerin, aspirin and atorvastatin at this time. I'll reorder her other home medications. She continue on her insulin pump. Monitor her glucoses using her own CGM. 2-D echo and possible stress test. If there are unable to schedule this as it is late on Thursday, we'll plan on her going home if cleared and following up outpatient for stress test. She'll be placed off work until it is finished.
[2021-04-19 13:55] LABS: Basophils % (A) 1 %; Eosinophils # (A) 0.1 k/uL (0-0.7); Eosinophils % (A) 1 %; HCT 40.7 % (34.0-46.0); HGB 13.6 gm/dL (11.4-16.0); Lymphocytes # (A) 2.7 k/uL (1.0-4.8); Lymphocytes % (A) 34 %; MCH 32.4 pg (25.0-35.0); MCHC 33.5 g/dL (31.0-37.0); MCV 96.7 fL (80.0-100.0); Mean Platelet Volume 8.4; Monocytes # (A) 0.5 k/uL (0-1.0); Monocytes % (A) 7 %; Neutrophils # (A) 4.4 k/uL (1.3-7.7); Neutrophils % (A) 56 %; Platelet Count 222 k/uL (150-450); RBC 4.21 m/uL (3.80-5.40); WBC 7.9 k/uL (3.8-10.6)
[2021-04-19] MEDS ORDERED: INSULIN LISPRO (For Pump) 100 UNIT/ML VIAL SQ-PUMP SCH (14:00)
[2021-04-19 14:01] LABS: African American GFR (CKD) >90 (>60 ml/min/1.73 sqM); Anion Gap 5 mmol/L; Blood Urea Nitrogen 17 mg/dL (7-17); Calcium 8.7 mg/dL (8.4-10.2); Carbon Dioxide 26 mmol/L (22-30); Chloride 103 mmol/L (98-107); Glucose 215 mg/dL (74-99); Magnesium 1.8 mg/dL (1.6-2.3); Non-African American GFR(CKD) >90 (>60 ml/min/1.73 sqM); Potassium 3.2 mmol/L (3.5-5.1); Sodium 134 mmol/L (137-145)
[2021-04-19] MEDS ORDERED: NON FORMULARY DRUG (Dextroamphetamine/Amphetamine [Adderall Xr] 30 MG Cap.Er.24h) PO SCH (15:00)
[2021-04-19] MEDS ORDERED: ATORVASTATIN 80 MG TAB PO SCH (15:00)
[2021-04-19] MEDS ORDERED: CHOLECALCIFEROL 25 MCG (1000 IU) TABLET PO SCH (15:00)
[2021-04-19] MEDS ORDERED: LORATADINE 10 MG TAB PO SCH (15:00)
[2021-04-19] MEDS ORDERED: DULoxetine HCL 30 MG CAPSULE.DR PO SCH (15:00)
[2021-04-19 15:38] VITALS: TEMP 97.9
[2021-04-19 18:14] VITALS: BP 136/89; PULSE 89; RESP 15
[2021-04-20] MEDS ORDERED: PREGABALIN 75 MG CAP PO SCH
[2021-04-20] MEDS ORDERED: ASPIRIN 81 MG PO SCH (09:00)
[2021-04-20] MEDS ORDERED: ASPIRIN 325 MG TAB PO SCH (09:00)
--- NOTE | 2021-04-20 15:52 | ECHOF ---
Referral Reason:LV function MEASUREMENTS -------- HEIGHT: 162.6 cm WEIGHT: 79.8 kg BP: 129/76 IVSd: 1.2 cm (0.6 - 1.1) LVIDd: 4.0 cm (3.9 - 5.3) LVPWd: 1.3 cm (0.6 - 1.1) EDV(Teich): 70 ml IVSs: 1.6 cm LVIDs: 2.6 cm LVPWs: 1.7 cm %IVS Thck: 31 % ESV(Teich): 25 ml EF(Teich): 64 % %FS: 34 % SV(Teich): 44 ml RVIDd: 2.2 cm (< 3.3) IVC: 16.28 mm LALs A4C: 5.4 cm LAAs A4C: 19.3 cm LAESV A-L A4C: 59 ml LAESV MOD A4C: 52 ml LALs A2C: 5.0 cm LAAs A2C: 18.3 cm LAESV A-L A2C: 57 ml LAESV MOD A2C: 54 ml LAESV(A-L): 60 ml LAESV Index (A-L): 32.42 ml/m Ao Diam: 3.0 cm (2.0 - 3.7) LA Diam: 3.4 cm (2.7 - 3.8) AV Cusp: 1.9 cm (1.5 - 2.6) EPSS: 0.4 cm MV E Florentin: 0.99 m/s MV DecT: 202 ms MV Dec Hyde: 4.9 m/s MV A Florentin: 0.80 m/s MV E/A Ratio: 1.24 MV PHT: 59 ms LVOT Vmax: 0.88 m/s LVOT maxP.07 mmHg AV Vmax: 1.23 m/s AV maxP.04 mmHg TR Vmax: 2.43 m/s TR maxP.57 mmHg RAP: 5.00 mmHg RVSP: 28.57 mmHg MV EF SLOPE: 71.39 mm/s (70 - 150) MV EXCURSION: 20.61 mm (> 18.000) FINDINGS -------- Sinus rhythm. This was a technically adequate study. The left ventricular size is normal. There is mild concentric left ventricular hypertrophy. Overa ll left ventricular systolic function is normal with, an EF between 55 - 60 %. The diastolic fillin g pattern is normal for the age of the patient 11.24. The right ventricle is normal in size. LA is midly dilated 29-33ml/m2. The right atrial size is normal. Interatrial and interventricular septum intact. The aortic valve is trileaflet and appears structurally normal. There is no evidence of aortic regu rgitation. There is no evidence of aortic stenosis. Mild mitral regurgitation is present. Mild tricuspid regurgitation present. There is no evidence of pulmonary hypertension. The right v entricular systolic pressure, as measured by Doppler, is 28.57mmHg. Trace/mild (physiologic) pulmonic regurgitation. The aortic root size is normal. Normal inferior vena cava with normal inspiratory collapse consistent with estimated right atrial pre ssure of 5 mmHg. There is no pericardial effusion. CONCLUSIONS -------- 1. The left ventricular size is normal. 2. There is mild concentric left ventricular hypertrophy. 3. Overall left ventricular systolic function is normal with, an EF between 55 - 60 %. 4. The diastolic filling pattern is normal for the age of the patient 11.24 5. LA is midly dilated 29-33ml/m2. 6. Mild mitral regurgitation is present. 7. Mild tricuspid regurgitation present. 8. Trace/mild (physiologic) pulmonic regurgitation. COAL WEIGHER: Amarilys Lorenzana RDCS
== END 2021-04-19 20:04 | disposition home or self-care (01) ==
LOC: EC 05:29 → 1SOBS 05:30 → 6NMEDSUR 12:40
PROVIDERS: ADMIT Family Medicine; ATTEND Family Medicine
DX: R07.89 Other chest pain (principal); I25.10 Atherosclerotic heart disease of native coronary artery without angina pectoris; E11.42 Type 2 diabetes mellitus with diabetic polyneuropathy; I10 Essential (primary) hypertension; I25.2 Old myocardial infarction; E78.5 Hyperlipidemia, unspecified; I71.2 Thoracic aortic aneurysm, without rupture; G25.81 Restless legs syndrome; R00.2 Palpitations; R06.02 Shortness of breath; F17.210 Nicotine dependence, cigarettes, uncomplicated; F32.9 Major depressive disorder, single episode, unspecified; F41.9 Anxiety disorder, unspecified; F90.9 Attention-deficit hyperactivity disorder, unspecified type; Z79.4 Long term (current) use of insulin; Z79.82 Long term (current) use of aspirin; Z79.899 Other long term (current) drug therapy; Z88.1 Allergy status to other antibiotic agents; Z88.5 Allergy status to narcotic agent; Z88.2 Allergy status to sulfonamides; Z88.8 Allergy status to other drugs, medicaments and biological substances; Z98.891 History of uterine scar from previous surgery; Z95.5 Presence of coronary angioplasty implant and graft; Z96.41 Presence of insulin pump (external) (internal); Z98.51 Tubal ligation status; Z87.42 Personal history of other diseases of the female genital tract; Z98.890 Other specified postprocedural states
CPT/HCPCS: 96376; 96374; 99285; 93005; 93306; 80048; 83735; 84484; 85025; G0378 ×2; J2270

== ENCOUNTER → 2022-07-30 | Outpatient (CLI) | payer OTHER ==
--- NOTE | 2022-07-30 17:11 | US ---
EXAMINATION TYPE: US venous doppler duplex UE LT DATE OF EXAM: 07/30/2022 COMPARISON: NONE CLINICAL HISTORY: R60.0 EDEMA OF LEFT UPPER ARM. swelling in left arm yesterday that has gone down in size today, no h/o dvt, has frozen shoulder currently SIDE PERFORMED: Left Left Arm: Negative for DVT Grayscale, color doppler, spectral doppler imaging performed of the deep veins of the upper extremiti es. There is normal flow, compressibility and vascular waveforms. IMPRESSION: No evidence of deep vein thrombosis of the left upper extremity. No evidence of superfici al thrombophlebitis.
[2022-07-30 17:44] LABS: African American GFR (CKD) >90 (>60 ml/min/1.73 sqM); Blood Urea Nitrogen 15 mg/dL (7-17); Non-African American GFR(CKD) >90 (>60 ml/min/1.73 sqM)
--- NOTE | 2022-07-30 18:44 | CT ---
EXAMINATION TYPE: CT angio chest CT DLP: 486 mGycm, Automated exposure control for dose reduction was used. DATE OF EXAM: 07/30/2022 6:12 PM COMPARISON: 06/01/2020 CLINICAL INDICATION:Female, 41 years old with history of R79.89 elevated D dimer R60.0 swelling r ar m; left arm swelling and elevated d-dimer yesterday TECHNIQUE/CONTRAST: CTA scan of the thorax is performed with IV Contrast, patient injected with 65 mL of Isovue 370, pulm onary embolism protocol. MIP images are created and reviewed. FINDINGS: Pulmonary Artery: There is no evidence for a central filling defect within the pulmonary vasculature to suggest acute pulmonary embolism. Limited evaluation of the segmental and subsegmental branches se condary to bolus timing. The pulmonary artery is of normal size. Lungs/Pleura: No evidence of focal consolidation, pleural effusion or pneumothorax. Ground glass opac ity in the medial aspect of the right upper lobe which extends along the pleura. Finding is new from prior. Measuring up to 19 x 10 mm. Airway: Large airways are patent. Heart: Heart is within normal limits for size.. Vasculature: No evidence of aortic aneurysm. Mediastinum: No gross evidence of adenopathy. Musculoskeletal: No acute osseous abnormalities Soft Tissues: Unremarkable. Lower neck: No significant findings. Upper Abdomen: No significant findings. IMPRESSION: 1. No evidence of central pulmonary embolism. Limited evaluation of the segmental and subsegmental br anches due to bolus timing. 2. Nonspecific 18 mm groundglass opacity in the medial aspect of the right upper lobe. Findings could relate to atelectasis with other etiologies like infection/inflammation felt to be less likely. Atte ntion on short-term follow-up CT chest to ensure resolution.
== END | disposition home or self-care (01) ==
LOC: RADUSWWP 16:18
PROVIDERS: ATTEND Family Medicine
DX: R91.8 Other nonspecific abnormal finding of lung field (principal); R79.89 Other specified abnormal findings of blood chemistry; R60.0 Localized edema
CPT/HCPCS: 85379; 82565; 84520; 93971; 71275; 36415 ×2; Q9967

== ENCOUNTER → 2023-01-01 | Outpatient (CLI) | payer OTHER ==
--- NOTE | 2023-01-01 10:44 | MM ---
Reason for Exam: Follow-up at short interval from prior study. Last mammogram was performed 2 year(s) and 1 month(s) ago. Patient History: Menarche at age 7. First Full-Term at age 17. Currently using Hormonal Contraceptives, for 6 months. 03/24/2005, Excisional Biopsy on the Right side. 09/29/2005, Benign Core Biopsy on the right side. Risk Values: Sri 5 year model risk: 1.6%. NCI Lifetime model risk: 12.2%. Prior Study Comparison: 03/06/2005 Bilateral Diagnostic Ultrasound, [facility]. 09/12/2005 Right Diagnostic Ultrasound, [facility]. 04/16/2006 Right Diagnostic Ultrasound, [facility]. 04/11/2009 Left Diagnostic Ultrasound, [facility]. 12/10/2020 Bilateral Diagnostic Mammogram, [facility]. Tissue Density: There are scattered fibroglandular densities. Findings: Analyzed By CAD. Mammotome biopsy clip in the upper outer quadrant of the right breast is redemonstrated. No suspicious new mass or distortion in either breast. Overall Assessment: Benign, BI-RAD 2 Management: Screening Mammogram of both breasts in 1 year. . Results were given to the patient verbally at the time of exam. Patient should continue monthly self-breast exams. A clinical breast exam by your physician is recommended on an annual basis. This exam should not preclude additional follow-up of suspicious palpable abnormalities. Note on Sri scores and lifetime risk: 1. A Sri score greater than 3% is considered moderate risk. If this is the case, consider specialist referral to assess eligibility for a risk reducing agent. 2. If overall lifetime risk for the development of breast cancer is 20% or higher, the patient may qualify for future screening with alternating mammogram and breast MRI. Electronically signed and approved by: Andi Garza M.D.
== END | disposition home or self-care (01) ==
LOC: RADMAMWWP 10:17
PROVIDERS: ATTEND Family Medicine
DX: N63.11 Unspecified lump in the right breast, upper outer quadrant (principal)
CPT/HCPCS: 77062; 77066

== ENCOUNTER → 2023-01-27 | Outpatient (CLI) | payer OTHER ==
[2023-01-27 16:09] LABS: African American GFR (CKD) >90 (>60 ml/min/1.73 sqM); Blood Urea Nitrogen 18 mg/dL (7-17); Non-African American GFR(CKD) >90 (>60 ml/min/1.73 sqM)
--- NOTE | 2023-01-28 08:50 | CT ---
EXAMINATION TYPE: CT angio neck DATE OF EXAM: 01/27/2023 HISTORY: r/o subclavian stenosis COMPARISON: None CT DLP: 497.2 mGycm. Automated Exposure Control for Dose Reduction was Utilized. TECHNIQUE: CTA scan of the head and neck is performed with IV Contrast, patient injected with 100 mL of Isovue 370, axial images are obtained, coronal and sagittal reformatted images are reviewed. 3D r econstructed images are created on an independent workstation and reviewed. FINDINGS: Mild atherosclerotic change carotid bifurcations with no evidence of significant hemodynamic stenosis . Remaining portions of the visualized common and internal carotid arteries are patent with no signific ant stenosis. Right vertebral artery slightly dominant. Standard three-vessel arch Ascending aorta measures a maximal dimension 3.6 cm. There is coronary artery calcification. The left subclavian artery is widely patent as visualized. The right subclavian artery is obscured by contrast within the right subclavian vein.. IMPRESSION: 1. Mild atherosclerotic plaque with No significant hemodynamic stenosis of the carotid bifurcations. 2. The left subclavian artery is widely patent as visualized. The right subclavian artery is obscured by contrast within the right subclavian vein.. NASCET criteria was used in interpretation of this exam?
== END | disposition home or self-care (01) ==
LOC: RADCTMAIN 14:45
PROVIDERS: ATTEND Internal Medicine
DX: I25.10 Atherosclerotic heart disease of native coronary artery without angina pectoris (principal); I65.23 Occlusion and stenosis of bilateral carotid arteries
CPT/HCPCS: 82565; 84520; 70498; 36415; Q9967

== ENCOUNTER → 2023-06-23 | Outpatient (CLI) | payer OTHER ==
[2023-06-23 13:19] LABS: ALT 73 U/L (4-34); AST 29 U/L (14-36); African American GFR (CKD) >90 (>60 ml/min/1.73 sqM); Albumin 4.1 g/dL (3.5-5.0); Albumin/Globulin Ratio 1.5; Alkaline Phosphatase 90 U/L (38-126); Anion Gap 9 mmol/L; Blood Urea Nitrogen 15 mg/dL (7-17); Calcium 9.2 mg/dL (8.4-10.2); Carbon Dioxide 25 mmol/L (22-30); Chloride 105 mmol/L (98-107); Globulin 2.8 g/dL; Glucose 81 mg/dL (74-99); Magnesium 1.9 mg/dL (1.6-2.3); Non-African American GFR(CKD) >90 (>60 ml/min/1.73 sqM); Potassium 4.5 mmol/L (3.5-5.1); Sodium 139 mmol/L (137-145); Total Bilirubin 0.3 mg/dL (0.2-1.3); Total Protein 6.9 g/dL (6.3-8.2)
[2023-06-23 13:28] LABS: NT-Pro-B-Type Natriuretic Pept 31 pg/mL
[2023-06-23 17:43] LABS: Basophils # (A) 0.06 X 10*3/uL (0.00-0.10); Basophils % (A) 0.6 %; Eosinophils # (A) 0.08 X 10*3/uL (0.04-0.35); Eosinophils % (A) 0.7 %; HGB 14.7 d/dL (12.0-15.0); Lymphocytes # (A) 3.47 X 10*3/uL (0.90-5.00); Lymphocytes % (A) 31.9 %; MCH 32.5 pg (27.0-32.0); MCHC 33.4 d/dL (32.0-37.0); MCV 97.3 FL (80.0-97.0); Mean Platelet Volume 10.2 FL (9.5-12.2); Monocytes # (A) 0.69 X 10*3/uL (0.20-1.00); Monocytes % (A) 6.3 %; NRBC Per 100 WBC 0 X 10*3/uL (0.00-0.01); Neutrophils # (A) 6.54 X 10*3/uL (1.80-7.70); Neutrophils % (A) 60.1 %; Platelet Count 282 X 10*3/uL (140-440); RBC 4.52 X 10*6/uL (4.10-5.20); RDW 12.1 % (11.5-14.5); WBC 10.88 X 10*3/uL (4.50-10.00)
== END | disposition home or self-care (01) ==
LOC: LABWHC1 12:30
PROVIDERS: ATTEND Family Medicine
DX: Z95.5 Presence of coronary angioplasty implant and graft (principal); F17.200 Nicotine dependence, unspecified, uncomplicated; R07.9 Chest pain, unspecified; R06.02 Shortness of breath; R53.83 Other fatigue
CPT/HCPCS: 36415; 80053; 83735; 83880; 85025

== ENCOUNTER → 2023-06-29 | Outpatient (CLI) | payer OTHER ==
--- NOTE | 2023-06-29 19:25 | CA ---
Transthoracic Echo Report Name: Lucy Gomez Age: 42 Gender: F : 1980 Exam Date: 06/29/2023 16:52 Exam Location: [place] [facility] Ht (in): 64 Wt (lb): 200 Ordering Physician: Jasen Hidalgo MD Attending/Referring Phys: Jasen Hidalgo MD [employer] [facility] Procedure CPT: Indications: R06.02 SOB R07.9 CHEST PAIN Cardiac Hx: Technical Quality: Fair Contrast 1: Total Dose (mL): Contrast 2: Total Dose (mL): MEASUREMENTS (Male / Female) Normal Values 2D ECHO LV Diastolic Diameter PLAX 4.4 cm 4.2 - 5.9 / 3.9 - 5.3 cm LV Systolic Diameter PLAX 3.1 cm IVS Diastolic Thickness 0.9 cm 0.6 - 1.0 / 0.6 - 0.9 cm LVPW Diastolic Thickness 0.9 cm 0.6 - 1.0 / 0.6 - 0.9 cm LV Relative Wall Thickness 0.4 LVOT Diameter 2.0 cm Aortic Root Diameter 3.3 cm Ascending Aorta Diameter 3.9 cm M-MODE Aortic Root Diameter MM 2.7 cm LA Systolic Diameter MM 3.2 cm LA Ao Ratio MM 1.2 AV Cusp Separation MM 1.9 cm DOPPLER AV Peak Velocity 140.0 cm/s AV Peak Gradient 7.8 mmHg AV Mean Velocity 99.0 cm/s AV Mean Gradient 4.3 mmHg AV Velocity Time Integral 27.4 cm LVOT Peak Velocity 118.4 cm/s LVOT Peak Gradient 5.6 mmHg LVOT Velocity Time Integral 24.7 cm LVOT Stroke Volume 75.3 cm??? LVOT Stroke Volume Index 38.5 ml/m??? LVOT Cardiac Index 2922.8 cm???/min???m??? AV Area Cont Eq vti 2.7 cm??? AV Area Cont Eq pk 2.6 cm??? Mitral E Point Velocity 66.3 cm/s Mitral A Point Velocity 86.1 cm/s Mitral E to A Ratio 0.8 MV Deceleration Time 141.6 ms LV E' Lateral Velocity 12.1 cm/s Mitral E to LV E' Lateral Ratio 5.5 LV E' Septal Velocity 11.9 cm/s Mitral E to LV E' Septal Ratio 5.6 TR Peak Velocity 224.0 cm/s TR Peak Gradient 20.1 mmHg Right Atrial Pressure 3.0 mmHg Pulmonary Artery Systolic Pressu 23.1 mmHg Right Ventricular Systolic Press 23.1 mmHg FINDINGS Left Ventricle Left ventricular cavity size normal. Left ventricular wall thickness normal. Normal left ventricular systolic function with no obvious regional wall motion abnormalities. Left ventricular ejection fraction is estimated at 55-60%. Right Ventricle Mild right ventricular dilatation. Right Atrium Upper normal right atrial size. Left Atrium Left atrial size at the upper limits of normal. Mitral Valve Structurally normal mitral valve. Mild mitral regurgitation. Aortic Valve Trileaflet aortic valve. No aortic valve stenosis or regurgitation. Tricuspid Valve Structurally normal tricuspid valve. Mild tricuspid regurgitation. Pulmonic Valve Pulmonic valve not well visualized. Trace pulmonic regurgitation. Pericardium No pericardial effusion. Aorta Normal size aortic root and mildly dilated proximal ascending aorta. CONCLUSIONS 1. Normal left ventricular size and systolic function 2. Mild mitral and tricuspid regurgitation Previewed by: Dr. Tio Lopez MD (Electronically Signed) Final Date: 29 June 2023 19:24
== END | disposition home or self-care (01) ==
LOC: RADECHMAIN 16:45
PROVIDERS: ATTEND Family Medicine
DX: I08.1 Rheumatic disorders of both mitral and tricuspid valves (principal); R06.02 Shortness of breath; R07.9 Chest pain, unspecified; R53.83 Other fatigue; Z95.5 Presence of coronary angioplasty implant and graft
CPT/HCPCS: 93306

== ENCOUNTER 2023-07-06 23:09 | Emergency (ER) | payer OTHER ==
[2023-07-06 23:31] VITALS: RESP 18
[2023-07-06] MEDS ORDERED: OXYMETAZOLINE 0.05% NASL SPRAY 1 SPRAY BOTTLE NASAL STA (23:44)
[2023-07-06] MEDS ORDERED: SILVER NITRATE APPLICATOR 1 EACH STICK..EA. TOPICAL STA (23:45)
[2023-07-06] MEDS ORDERED: BACITRACIN OINT 1 EACH PACKET TOPICAL ONE (23:50)
--- NOTE | 2023-07-07 00:35 | ED ---
General Adult HPI - General Chief complaint: ENT Stated complaint: Nosebleed Time Seen by Provider: 07/06/23 23:19 Source: patient, RN notes reviewed Mode of arrival: ambulatory Limitations: no limitations - History of Present Illness Initial comments: Patient is a pleasant 42-year-old female presenting to the emergency department with concerns for epistaxis. Onset of symptoms was a few hours prior to arrival. Patient has tried nose clamp without much improvement. Patient does have a history of a chronic nosebleeds. No chest pain or dyspnea. No fatigue. Patient states right side of the nose seems to be bleeding. - Related Data Home Medications Medication Instructions Recorded Confirmed Dextroamphetamine/Amphetamine 30 mg PO DAILY@1500 06/19/14 04/19/21 [Adderall Xr] Atorvastatin [Lipitor] 80 mg PO DAILY@1500 02/11/19 04/19/21 Cetirizine HCl [Zyrtec] 10 mg PO DAILY@1500 02/11/19 04/19/21 Butalb/Acetaminophen/Caffeine 1 cap PO Q6H PRN 05/31/20 04/19/21 [Fioricet 50-300-40 mg Capsule] traMADol HCL 50 mg PO Q6H PRN 05/31/20 04/19/21 Cholecalciferol (Vitamin D3) 250 mcg PO MOTUWETHFR@1500 04/19/21 04/19/21 [Vitamin D3 (125 MCG = 5,000 IU)] DULoxetine HCL [Cymbalta] See Taper PO DAILY@1500 04/19/21 04/19/21 INSULIN LISPRO (For Pump) [humaLOG 0.01 units SQ-PUMP CONTINUOUS 04/19/21 04/19/21 (For Pump)] Pregabalin [Lyrica] 150 mg PO BID@0000,1300 04/19/21 04/19/21 Previous Rx's Medication Instructions Recorded Aspirin 81 mg PO DAILY chew 04/19/21 Allergies Allergy/AdvReac Type Severity Reaction Status Date / Time cefaclor [From Ceclor] Allergy Unknown Verified 07/06/23 23:18 Cephalosporins Allergy Unknown Verified 07/06/23 23:18 hydromorphone HCl Allergy Unknown Verified 07/06/23 23:18 [From Dilaudid] lithium [[place]] Allergy Unknown Verified 07/06/23 23:18 oxcarbazepine Allergy Unknown Verified 07/06/23 23:18 [From Trileptal] phenytoin sodium Allergy Unknown Verified 07/06/23 23:18 [From Dilantin] phenytoin sodium extended Allergy Unknown Verified 07/06/23 23:18 [From Dilantin] Sulfa (Sulfonamide Allergy Unknown Verified 07/06/23 23:18 Antibiotics) sulfamethoxazole Allergy Unknown Verified 07/06/23 23:18 [From Bactrim] trimethoprim [From Bactrim] Allergy Unknown Verified 07/06/23 23:18 Review of Systems ROS Statement: Those systems with pertinent positive or pertinent negative responses have been documented in the HPI. ROS Other: All systems not noted in ROS Statement are negative. Constitutional: Denies: fever Eyes: Denies: eye pain ENT: Reports: as per HPI Respiratory: Denies: cough, dyspnea Endocrine: Denies: fatigue Past Medical History Past Medical History: Chest Pain / Angina, Diabetes Mellitus, Hyperlipidemia, Hypertension, Myocardial Infarction ([place]) Additional Past Medical History / Comment(s): neuropathy, restless leg syndrome, recent admission for chest pain, anuerysm ascending aortic, Last Myocardial Infarction Date:: May 2017 History of Any Multi-Drug Resistant Organisms: None Reported Past Surgical History: Section, Heart Catheterization With Stent, Tubal Ligation, Uterine Ablation Additional Past Surgical History / Comment(s): sinues surgery, right breast cyst removal, 14 cysts taken of ovaries and tubes, Past Anesthesia/Blood Transfusion Reactions: No Reported Reaction Date of Last Stent Placement:: May 2017 Past Psychological History: ADD/ADHD, Anxiety, Depression Smoking Status: Current every day smoker Past Alcohol Use History: None Reported Past Drug Use History: Marijuana - Past Family History Father Family Medical History: No Reported History General Exam Limitations: no limitations General appearance: alert, in no apparent distress Head exam: Present: atraumatic Eye exam: Present: normal appearance ENT exam: Present: other (Right nares with active bleeding in the anterior nasal septum) Neck exam: Present: normal inspection Respiratory exam: Present: normal lung sounds bilaterally Cardiovascular Exam: Present: regular rate, normal rhythm GI/Abdominal exam: Present: soft. Absent: tenderness Extremities exam: Present: normal inspection Neurological exam: Present: alert Psychiatric exam: Present: normal affect, normal mood Skin exam: Present: normal color Course Vital Signs 07/06/23 23:16 Temperature 97.9 F Pulse Rate 104 H Respiratory 18 Rate Blood Pressure 162/77 O2 Sat by Pulse 100 Oximetry Procedures - Procedures Initial comment: Epistaxis: Nose clamp was removed. Right nares suctioned with wall suction. Area of bleeding identified right anterior nasal septum. Area was cauterized using silver nitrate without complication. Hemostasis obtained. Medical Decision Making - Medical Decision Making Was pt. sent in by a medical professional or institution (LISSETT Carrero, ARCHITECTURE MANAGER, urgent care, hospital, or custodial...) When possible be specific @ -No Did you speak to anyone other than the patient for history (EMS, parent, family, police, friend...)? What history was obtained from this source @ -No Did you review nursing and triage notes (agree or disagree)? Why? @ -I reviewed and agree with nursing and triage notes Were old charts reviewed (outside hosp., previous admission, EMS record, old EKG, old radiological studies, urgent care reports/EKG's, custodial records)? Report findings @ -Previous admission with epistaxis was reviewed. Differential Diagnosis (chest pain, altered mental status, abdominal pain women, abdominal pain men, vaginal bleeding, weakness, fever, dyspnea, syncope, headache, dizziness, GI bleed, back pain, seizure, CVA, palpatations, mental health, musculoskeletal)? @ -not applicable EKG interpreted by me (3pts min.). @ -As above X-rays interpreted by me (1pt min.). @ -None done CT interpreted by me (1pt min.). @ -None done U/S interpreted by me (1pt. min.). @ -None done What testing was considered but not performed or refused? (CT, X-rays, U/S, labs)? Why? @ -None What meds were considered but not given or refused? Why? @ -None Did you discuss the management of the patient with other professionals (professionals i.e. LISSETT Carrero, ARCHITECTURE MANAGER, lab, RT, psych nurse, psychologist social, end frazer, teacher, compliance officer, case planner)? Give summary @ -No Was smoking cessation discussed for >3mins.? @ -No Was critical care preformed (if so, how long)? @ -No Were there social determinants of health that impacted care today? How? (Homelessness, low income, unemployed, alcoholism, drug addiction, transportation, low edu. Level, literacy, decrease access to med. care, usp, rehab)? @ -No Was there de-escalation of care discussed even if they declined (Discuss DNR or withdrawal of care, Hospice)? DNR status @ -No What co-morbidities impacted this encounter? (DM, HTN, Smoking, COPD, CAD, Cancer, CVA, ARF, Chemo, Hep., AIDS, mental health diagnosis, sleep apnea, morbid obesity)? @ -None Was patient admitted / discharged? Hospital course, mention meds given and route, prescriptions, significant lab abnormalities, going to OR and other pertinent info. @ -Hemostasis obtained with silver nitrate stick. medications. Patient reevaluated twice doing well. Patient be discharged for follow-up with ENT. Undiagnosed new problem with uncertain prognosis? @ -No Drug Therapy requiring intensive monitoring for toxicity (Heparin, Nitro, Insulin, Cardizem)? @ -No Were any procedures done? @ -See above Diagnosis/symptom? @ -Epistaxis Acute, or Chronic, or Acute on Chronic? @ -Acute Uncomplicated (without systemic symptoms) or Complicated (systemic symptoms)? @ -default Side effects of treatment? @ -No Exacerbation, Progression, or Severe Exacerbation? @ -No Poses a threat to life or bodily function? How? (Chest pain, [place], [place], pneumonia, PE, COPD, DKA, ARF, appy, cholecystitis, CVA, Diverticulitis, Homicidal, Suicidal, threat to staff... and all critical care pts) @ -No Disposition Clinical Impression: Epistaxis Disposition: HOME SELF-CARE Condition: Stable Instructions (If sedation given, give patient instructions): Nosebleed (ED) Additional Instructions: Please do follow-up with your nose and throat doctor the next day or 2 for recheck. Return for increased bleeding, other sites of bleeding, worsening symptoms or other concerns. Is patient prescribed a controlled substance at d/c from ED?: No Referrals: Jasen Hidalgo MD [Primary Care Provider] - 1-2 days Ken Razo MD [STAFF PHYSICIAN] - 1-2 days Time of Disposition: 00:32
[2023-07-07 01:16] VITALS: BP 133/80; PULSE 84; TEMP 98
== END 2023-07-07 01:15 | disposition home or self-care (01) ==
LOC: EC 23:09
DX: R04.0 Epistaxis (principal); E11.9 Type 2 diabetes mellitus without complications; E78.5 Hyperlipidemia, unspecified; F32.A Depression, unspecified; F41.9 Anxiety disorder, unspecified; I10 Essential (primary) hypertension; I25.2 Old myocardial infarction; F17.200 Nicotine dependence, unspecified, uncomplicated; F12.90 Cannabis use, unspecified, uncomplicated; Z88.1 Allergy status to other antibiotic agents; Z88.2 Allergy status to sulfonamides; Z88.5 Allergy status to narcotic agent; Z88.6 Allergy status to analgesic agent; Z88.8 Allergy status to other drugs, medicaments and biological substances; Z79.899 Other long term (current) drug therapy; Z79.4 Long term (current) use of insulin
CPT/HCPCS: 99283

== ENCOUNTER → 2023-07-17 | Outpatient (CLI) | payer OTHER ==
[2023-07-18 02:20] LABS: ALT 30 U/L (8-44); AST 17 U/L (13-35); Alkaline Phosphatase 84 U/L (41-126); BUN/Creat Ratio 21.83 Ratio (12.00-20.00); Blood Urea Nitrogen 13.1 mg/dL (9.0-27.0); Calcium 9.1 mg/dL (8.7-10.3); Chloride 103 mmol/L (96-109); Globulin 2.1 g/dL (1.6-3.3); Glucose 101 mg/dL (70-110); Potassium 3.8 mmol/L (3.5-5.5); Sodium 140 mmol/L (135-145); Total Bilirubin 0.3 mg/dL (0.3-1.2); Total Protein 6.1 g/dL (6.2-8.2)
[2023-07-18 02:21] LABS: Basophils # (A) 0.05 X 10*3/uL (0.00-0.10); Basophils % (A) 0.5 %; HGB 12.8 g/dL (12.0-15.0); Lymphocytes # (A) 3.18 X 10*3/uL (0.90-5.00); Lymphocytes % (A) 32.4 %; MCH 32.3 pg (27.0-32.0); MCHC 33.7 g/dL (32.0-37.0); Mean Platelet Volume 9.6 FL (9.5-12.2); Monocytes # (A) 0.68 X 10*3/uL (0.20-1.00); Monocytes % (A) 6.9 %; NRBC Per 100 WBC 0 X 10*3/uL (0.00-0.01); Neutrophils # (A) 5.76 X 10*3/uL (1.80-7.70); Neutrophils % (A) 58.8 %; Platelet Count 270 X 10*3/uL (140-440); RBC 3.96 X 10*6/uL (4.10-5.20); RDW 12.1 % (11.5-14.5); WBC 9.81 X 10*3/uL (4.50-10.00)
== END | disposition home or self-care (01) ==
LOC: LABWHC1 15:56
PROVIDERS: ATTEND Family Medicine
DX: G47.26 Circadian rhythm sleep disorder, shift work type (principal); D72.829 Elevated white blood cell count, unspecified; R06.02 Shortness of breath; R07.9 Chest pain, unspecified; R53.83 Other fatigue; R04.0 Epistaxis; R79.89 Other specified abnormal findings of blood chemistry; Z95.5 Presence of coronary angioplasty implant and graft
CPT/HCPCS: 36415; 80053; 85025

== ENCOUNTER → 2023-08-10 | Outpatient (CLI) | payer OTHER ==
[2023-08-10 13:37] LABS: African American GFR (CKD) >90 (>60 ml/min/1.73 sqM); Blood Urea Nitrogen 18 mg/dL (7-17); Non-African American GFR(CKD) >90 (>60 ml/min/1.73 sqM)
--- NOTE | 2023-08-10 17:27 | CT ---
EXAMINATION TYPE: CT chest w con DATE OF EXAM: 08/10/2023 COMPARISON: HISTORY: Abnormal findings CT DLP: 456 mGycm, Automated exposure control for dose reduction was used. CONTRAST: Performed injected with 100 ml mL of Isovue 300. TECHNIQUE: Axial images were obtained at 5 mm thick sections. Reconstructed images are reviewed on [facility] computer in the coronal plane. FINDINGS: Portion of the thyroid visualized is normal. No suspicious lung nodules or focal infiltrates are present. Previous medial right apical groundglass opacity not identified on current exam No enlarged mediastinal or hilar adenopathy is evident. The ascending aorta diameter at the level o f the main pulmonary artery is 3.9 cm. The main pulmonary artery diameter at the bifurcation is 2.[address] sections are obtained through the upper abdomen. Abdomen is essentially unremarkable. IMPRESSION: 1. No acute pulmonary process. Previous groundglass opacity is not identified on the current exam
== END | disposition home or self-care (01) ==
LOC: RADCTMAIN 12:37
PROVIDERS: ATTEND Internal Medicine Critical Care Medicine
DX: R93.89 Abnormal findings on diagnostic imaging of other specified body structures (principal); R91.1 Solitary pulmonary nodule
CPT/HCPCS: 82565; 84520; 71260; 36415; Q9967

== ENCOUNTER 2024-11-29 23:07 | Observation (INO) | payer BC, OTHER ==
--- NOTE | 2024-11-29 23:28 | ED ---
Chest Pain HPI - General Chief Complaint: Chest Pain Stated Complaint: Chest Pain Time Seen by Provider: 11/29/24 23:25 Source: patient Mode of arrival: ambulatory Limitations: no limitations - History of Present Illness Initial Comments: This is a 44-year-old female history of T1DM, coronary artery disease with stent placement, hypertension and hyperlipidemia presenting to emergency department for complaint of center left-sided chest pain that started at 1900 this evening while she was at work. Patient states that she felt like her heart was being sq ueezed. At this time she began to experience nausea and diaphoresis. Patient took a prescribed nitro with minimal relief in symptoms. She states that the pain mildly radiates into her back. She denies associated shortness of breath. Denies history of DVT or PE. Of note, states that she has a history of a "aneurysm at the top of her heart ". Patient has not followed up with cardiology in over 2 years. - Related Data Home Medications Medication Instructions Recorded Confirmed Dextroamphetamine/Amphetamine 30 mg PO DAILY@1500 06/19/14 04/19/21 [Adderall Xr] Atorvastatin [Lipitor] 80 mg PO DAILY@1500 02/11/19 04/19/21 Cetirizine HCl [Zyrtec] 10 mg PO DAILY@1500 02/11/19 04/19/21 Butalb/Acetaminophen/Caffeine 1 cap PO Q6H PRN 05/31/20 04/19/21 [Fioricet 50-300-40 mg Capsule] traMADol HCL 50 mg PO Q6H PRN 05/31/20 04/19/21 Cholecalciferol (Vitamin D3) 250 mcg PO MOTUWETHFR@1500 04/19/21 04/19/21 [Vitamin D3 (125 MCG = 5,000 IU)] DULoxetine HCL [Cymbalta] See Taper PO DAILY@1500 04/19/21 04/19/21 INSULIN LISPRO (For Pump) [humaLOG 0.01 units SQ-PUMP CONTINUOUS 04/19/21 04/19/21 (For Pump)] Pregabalin [Lyrica] 150 mg PO BID@0000,1300 04/19/21 04/19/21 Previous Rx's Medication Instructions Recorded Aspirin 81 mg PO DAILY chew 04/19/21 Allergies Allergy/AdvReac Type Severity Reaction Status Date / Time cefaclor [From Ceclor] Allergy Unknown Verified 11/29/24 23:14 Cephalosporins Allergy Unknown Verified 11/29/24 23:14 hydromorphone HCl Allergy Unknown Verified 11/29/24 23:14 [From Dilaudid] lithium [[address]] Allergy Unknown Verified 11/29/24 23:14 oxcarbazepine Allergy Unknown Verified 11/29/24 23:14 [From Trileptal] phenytoin sodium Allergy Unknown Verified 11/29/24 23:14 [From Dilantin] phenytoin sodium extended Allergy Unknown Verified 11/29/24 23:14 [From Dilantin] Sulfa (Sulfonamide Allergy Unknown Verified 11/29/24 23:14 Antibiotics) sulfamethoxazole Allergy Unknown Verified 11/29/24 23:14 [From Bactrim] trimethoprim [From Bactrim] Allergy Unknown Verified 11/29/24 23:14 Review of Systems ROS Statement: Those systems with pertinent positive or pertinent negative responses have been documented in the HPI. ROS Other: All systems not noted in ROS Statement are negative. Past Medical History Past Medical History: Chest Pain / Angina, Diabetes Mellitus, Hyperlipidemia, Hypertension, Myocardial Infarction ([place]) Additional Past Medical History / Comment(s): neuropathy, restless leg syndrome, recent admission for chest pain, anuerysm ascending aortic, [place] 2016, 4 Cardiac STENTS Last Myocardial Infarction Date:: May 2017 History of Any Multi-Drug Resistant Organisms: None Reported Past Surgical History: Section, Heart Catheterization With Stent, Tubal Ligation, Uterine Ablation Additional Past Surgical History / Comment(s): sinues surgery, right breast cyst removal, 14 cysts taken of ovaries and tubes, Past Anesthesia/Blood Transfusion Reactions: No Reported Reaction Date of Last Stent Placement:: May 2017 Past Psychological History: ADD/ADHD, Anxiety, Depression Smoking Status: Current every day smoker Past Alcohol Use History: None Reported Past Drug Use History: Marijuana - Past Family History Father Family Medical History: No Reported History General Exam Limitations: no limitations General appearance: alert, in no apparent distress ENT exam: Present: normal exam, mucous membranes moist Neck exam: Present: normal inspection. Absent: tenderness, meningismus, lymphadenopathy Respiratory exam: Present: normal lung sounds bilaterally. Absent: respiratory distress, wheezes, rales, rhonchi, stridor Cardiovascular Exam: Present: regular rate, normal rhythm, normal heart sounds. Absent: systolic murmur, diastolic murmur, rubs, gallop, clicks GI/Abdominal exam: Present: soft, normal bowel sounds. Absent: distended, tenderness, guarding, rebound, rigid Extremities exam: Present: normal inspection, full ROM, normal capillary refill. Absent: tenderness, pedal edema, joint swelling, calf tenderness Back exam: Present: normal inspection Skin exam: Present: warm, dry, intact, normal color. Absent: rash Course Vital Signs 11/29/24 23:10 Temperature 97.9 F Pulse Rate 81 Respiratory 20 Rate Blood Pressure 155/87 O2 Sat by Pulse 100 Oximetry Chest Pain MDM - MDM Was pt. sent in by a medical professional or institution (, PA, ANALYTICS MANAGER, urgent care, hospital, or care home...) When possible be specific @ -No Did you speak to anyone other than the patient for history (EMS, parent, family, police, friend...)? What history was obtained from this source @ -No Did you review nursing and triage notes (agree or disagree)? Why? @ -I reviewed and agree with nursing and triage notes Were old charts reviewed (outside hosp., previous admission, EMS record, old EKG, old radiological studies, urgent care reports/EKG's, care home records)? Report findings @ -No old charts were reviewed Differential Diagnosis (chest pain, altered mental status, abdominal pain women, abdominal pain men, vaginal bleeding, weakness, fever, dyspnea, syncope, headache, dizziness, GI bleed, back pain, seizure, CVA, palpatations, mental health, musculoskeletal)? @ -Differential Chest Pain: Stable Angina, Unstable Angina, STEMI, NSTEMI Aortic Dissection, Pneumothorax, Musculoskeletal, Esophageal Spasm GERD, Cholecystitis, Pancreatitis, Zoster, this is not meant to be an all-inclusive list. EKG interpreted by me (3pts min.). @ -Completed at 2320 sinus rhythm with a ventricular rate of 80, parable 134, QRS 93, QTc 425. X-rays interpreted by me (1pt min.). @ -Chest x-ray no acute cardiopulmonary process or disease CT interpreted by me (1pt min.). @ -None done U/S interpreted by me (1pt. min.). @ -None done What testing was considered but not performed or refused? (CT, X-rays, U/S, labs)? Why? @ -None What meds were considered but not given or refused? Why? @ -None Did you discuss the management of the patient with other professionals (professionals i.e. , PA, ANALYTICS MANAGER, lab, RT, psych nurse, social worker aide, rn access, teacher, community cultural development officer, case management assistant)? Give summary @ -Dr. Juarez from [facility] for admission. Was smoking cessation discussed for >3mins.? @ -No Was critical care preformed (if so, how long)? @ -No Were there social determinants of health that impacted care today? How? (Homelessness, low income, unemployed, alcoholism, drug addiction, transportation, low edu. Level, literacy, decrease access to med. care, intermediate, rehab)? @ -No Was there de-escalation of care discussed even if they declined (Discuss DNR or withdrawal of care, Hospice)? DNR status @ -No What co-morbidities impacted this encounter? (DM, HTN, Smoking, COPD, CAD, Cancer, CVA, ARF, Chemo, Hep., AIDS, mental health diagnosis, sleep apnea, morbid obesity)? @ -None Was patient admitted / discharged? Hospital course, mention meds given and route, prescriptions, significant lab abnormalities, going to OR and other pertinent info. @ -Admitted. 44 year old female presenting with chest pain. On arrival patient vitals are stable. EKG sinus rhythm. She is provided with aspirin and Nitropaste and will undergo cardiac evaluation. Mild leukocytosis on labs of 13.9, neutrophils 9.5. Coagulation within normal. Initial troponin nonelevated. Urinalysis no signs infection, negative acetone. Chest x-ray no acute process. On reevaluation after medication ministration patient states that chest pain is completely resolved with Nitropaste. Patient will be admitted to internal medicine with cardiology on consult to trend cardiac enzymes. Case discussed with Dr. Andrade Undiagnosed new problem with uncertain prognosis? @ -No Drug Therapy requiring intensive monitoring for toxicity (Heparin, Nitro, Insulin, Cardizem)? @ -No Were any procedures done? @ -No Diagnosis/symptom? @ -chest pain Acute, or Chronic, or Acute on Chronic? @ -acute Uncomplicated (without systemic symptoms) or Complicated (systemic symptoms)? @ -complicated Side effects of treatment? @ -No Exacerbation, Progression, or Severe Exacerbation? @ -No Poses a threat to life or bodily function? How? (Chest pain, [place], [place], pneumonia, PE, COPD, DKA, ARF, appy, cholecystitis, CVA, Diverticulitis, Homicidal, S uicidal, threat to staff... and all critical care pts) @ -yes, potential for end organ dysfunction Disposition Clinical Impression: Chest pain Disposition: ADMITTED IP TO THIS [facility] Condition: Serious Referrals: Jasen Hidalgo MD [Primary Care Provider] - 1-2 days Decision to Admit Reason: Admit from EC Decision Date: 11/30/24 Decision Time: 02:40
[2024-11-29 23:41] LABS: Basophils # (A) 0.1 k/uL (0-0.2); Basophils % (A) 0 %; Eosinophils # (A) 0.1 k/uL (0-0.7); Eosinophils % (A) 1 %; HCT 46.7 % (34.0-46.0); HGB 15.5 gm/dL (11.4-16.0); Lymphocytes # (A) 3.5 k/uL (1.0-4.8); Lymphocytes % (A) 25 %; MCH 31.5 pg (25.0-35.0); MCHC 33.1 g/dL (31.0-37.0); Mean Platelet Volume 7.3; Monocytes # (A) 0.6 k/uL (0-1.0); Monocytes % (A) 4 %; Neutrophils # (A) 9.5 k/uL (1.3-7.7); Neutrophils % (A) 68 %; Platelet Count 390 k/uL (150-450); RBC 4.91 m/uL (3.80-5.40); RDW 11.6 % (11.5-15.5); WBC 13.9 k/uL (3.8-10.6)
[2024-11-29 23:51] LABS: ALT 21 U/L (4-34); AST 20 U/L (14-36); African American GFR (CKD) >90 (>60 ml/min/1.73 sqM); Albumin 4.3 g/dL (3.5-5.0); Alkaline Phosphatase 83 U/L (38-126); Anion Gap 9 mmol/L; Blood Urea Nitrogen 15 mg/dL (7-17); Calcium 9.6 mg/dL (8.4-10.2); Carbon Dioxide 27 mmol/L (22-30); Chloride 100 mmol/L (98-107); Glucose 86 mg/dL (74-99); Lipase 81 U/L (23-300); Magnesium 1.9 mg/dL (1.6-2.3); Non-African American GFR(CKD) >90 (>60 ml/min/1.73 sqM); Potassium 3.6 mmol/L (3.5-5.1); Sodium 136 mmol/L (137-145); Total Bilirubin 0.5 mg/dL (0.2-1.3); Total Protein 7.3 g/dL (6.3-8.2)
[2024-11-29] MEDS: ASPIRIN 81 MG PO STA (23:54)
[2024-11-29] MEDS: NITROGLYCERIN OINT 1 INCH/GM PACKET TOPICAL STA (23:54)
[2024-11-29 23:55] LABS: INR 0.9 (<1.2); Partial Thromboplastin Time 22.7 sec (22.0-30.0); Prothrombin Time 10.1 sec (10.0-12.5)
--- NOTE | 2024-11-30 00:05 | XR ---
EXAMINATION TYPE: XR chest 2V DATE OF EXAM: 11/29/2024 11:56 PM COMPARISON: Chest radiographs from 05/30/2020 CLINICAL INDICATION: Female, 44 years old with history of Chest Pain; [facility] TECHNIQUE: XR chest 2V Frontal and lateral views of the chest. FINDINGS: Lungs/Pleura: There is no evidence of pleural effusion, focal consolidation, or pneumothorax. Pulmonary vascularity: Unremarkable. Heart/mediastinum: Cardiomediastinal silhouette is unremarkable. Musculoskeletal: No acute osseous pathology. Other findings: None IMPRESSION: No acute cardiopulmonary disease/process. [facility], , 11/30/2024 12:03 AM
[2024-11-30 01:36] LABS: Appearance,Urine Cloudy (Clear); Bacteria,Urine Many /hpf; Bilirubin,Urine Negative (Negative); Blood,Urine Negative (Negative); Budding Yeast,Urine Rare /hpf; Color,Urine Colorless; Glucose,Urine (UA) Negative (Negative); Ketones,Urine Negative (Negative); Leukocyte Esterase,Urine Negative (Negative); Mucus,Urine Occasional /hpf; Nitrite,Urine Negative (Negative); Protein,Urine Negative (Negative); RBC,Urine 1 /hpf (0-5); Specific Gravity,Urine 1.009 (1.001-1.035); Squamous Epithelial Cell,Urine 3 /hpf (0-4); Urobilinogen,Urine <2.0 mg/dL (<2.0); WBC,Urine 2 /hpf (0-5)
[2024-11-30] MEDS ORDERED: NALOXONE 0.4 MG/ML 1 ML VIAL IV PRN (02:36)
[2024-11-30] MEDS ORDERED: IBUPROFEN 400 MG TAB PO PRN (02:36)
[2024-11-30] MEDS ORDERED: ONDANSETRON 4 MG/2 ML VIAL IVP PRN (02:36)
[2024-11-30] MEDS ORDERED: ACETAMINOPHEN TAB 325 MG TAB PO PRN (02:36)
[2024-11-30] MEDS ORDERED: DEXTROSE 50% SYRINGE 50 ML IVP PRN ×4 (08:17→16:36)
[2024-11-30] MEDS: Insulin Aspart (For Pump) 100 UNIT/ML VIAL SQ-PUMP SCH (08:29)
[2024-11-30] MEDS ORDERED: INSULIN LISPRO (HumaLOG) 100 UNIT/ML 10 mL VL SQ SCH (08:30)
[2024-11-30] MEDS: ATORVASTATIN 80 MG TAB PO SCH (08:40)
[2024-11-30] MEDS: PANTOPRAZOLE 40 MG/10 ML VIAL IVP SCH (10:16)
--- NOTE | 2024-11-30 10:20 | P.HPIM ---
History of Present Illness H&P Date: 11/30/24 Chief Complaint: Chest pain This is a 44-year-old female with past medical history significant for CAD, SD with stent of the LAD and RCA, diabetes mellitus type 2, nicotine dependent , neuropathy, restless leg syndrome , ADD/ADHD, anxiety, depression, marijuana use and multiple other medical issues presented to the ER with chest pain. 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 no vomiting or diarrhea. Denies abdominal pain. Perfuse night sweats x 3- "waking up soaked." .currently denies chest pain. Patient also reports ascending aortic aneurysm.Echo of 06/29/2023, reports ascending aorta diameter 3.9 cm, normal LV size and systolic function. Maintaining O2 sats in the high 90s to 100% on room air. WBC 13.9, hemoglobin 15.5, platelets 390, INR 0.9. Chemistry panel unremarkable/troponins negative x 3 . EKG reported sinus rhythm with nonspecific T wave abnormality. UA negative. Chest x-ray reported no acute cardiopulmonary disease process. Cardiology consult in place. Review of Systems ROS Statement: Those systems with pertinent positive or pertinent negative responses have been documented in the HPI. ROS Other: All systems not noted in ROS Statement are negative. Past Medical History Past Medical History: Chest Pain / Angina, Diabetes Mellitus, Hyperlipidemia, Hypertension, Myocardial Infarction (SD) Additional Past Medical History / Comment(s): neuropathy, restless leg syndrome, recent admission for chest pain, anuerysm ascending aortic, SD 2017, 4 Cardiac STENTS Last Myocardial Infarction Date:: May 2017 History of Any Multi-Drug Resistant Organisms: None Reported Past Surgical History: Section, Heart Catheterization With Stent, Tubal Ligation, Uterine Ablation Additional Past Surgical History / Comment(s): sinues surgery, right breast cyst removal, 14 cysts taken of ovaries and tubes, Past Anesthesia/Blood Transfusion Reactions: No Reported Reaction Date of Last Stent Placement:: May 2017 Past Psychological History: ADD/ADHD, Anxiety, Depression Smoking Status: Current every day smoker Past Alcohol Use History: None Reported Past Drug Use History: Marijuana - Past Family History Father Family Medical History: No Reported History Medications and Allergies Home Medications Medication Instructions Recorded Confirmed Type Dextroamphetamine/Amphetamine 30 mg PO DAILY 06/19/14 11/30/24 History [Adderall Xr] Atorvastatin [Lipitor] 80 mg PO DAILY 02/11/19 11/30/24 History Cetirizine HCl [Zyrtec] 10 mg PO DAILY 02/11/19 11/30/24 History Aspirin 81 mg PO DAILY chew 04/19/21 11/30/24 Rx Insulin Aspart (For Pump) [NovoLOG 0.01 unit SQ-PUMP CONTINUOUS 11/30/24 11/30/24 History (For Pump)] Losartan [Cozaar] 25 mg PO DAILY 11/30/24 11/30/24 History predniSONE See Taper PO DAILY 11/30/24 11/30/24 History valACYclovir HCL [Valtrex] 1,000 mg PO DAILY 11/30/24 11/30/24 History Allergies Allergy/AdvReac Type Severity Reaction Status Date / Time cefaclor [From Ceclor] Allergy Unknown Verified 11/30/24 07:10 Cephalosporins Allergy Unknown Verified 11/30/24 07:10 hydromorphone HCl Allergy Unknown Verified 11/30/24 07:10 [From Dilaudid] lithium [[place]] Allergy Unknown Verified 11/30/24 07:10 oxcarbazepine Allergy Unknown Verified 11/30/24 07:10 [From Trileptal] phenytoin sodium Allergy Unknown Verified 11/30/24 07:10 [From Dilantin] phenytoin sodium extended Allergy Unknown Verified 11/30/24 07:10 [From Dilantin] Sulfa (Sulfonamide Allergy Unknown Verified 11/30/24 07:10 Antibiotics) sulfamethoxazole Allergy Unknown Verified 11/30/24 07:10 [From Bactrim] trimethoprim [From Bactrim] Allergy Unknown Verified 11/30/24 07:10 Physical Exam Vitals: Vital Signs Temp Pulse Resp BP Pulse Ox 11/30/24 08:43 70 18 117/78 97 11/30/24 07:36 78 18 117/78 97 11/30/24 06:11 98.5 F 71 18 123/74 97 11/29/24 23:10 97.9 F 81 20 155/87 100 Intake and Output 11/29/24 11/30/24 11/30/24 22:59 06:59 14:59 Other: Weight 177.9 kg GENERAL: Pleasant, alert and oriented x 3, sitting up on stretcher, no acute distress. HEENTD: Atraumatic, normocephalic. Pupils equal round and reactive to light, sclera anicteric, conjunctiva normal.MMM. NECK: Supple, without lymphadenopathy or JVD, no thyromegaly LUNGS: Unlabored, equal air entry, clear to auscultation. HEART: Regular rate and rhythm without murmurs, rubs or gallops.S1S2 Normal ABDOMEN: Soft, nontender, normoactive bowel sounds. No guarding, no rigidity. No masses appreciated. EXTREMITIES: Normal range of motion, no pitting or edema. No clubbing or cyanosis. NEUROLOGICAL: Cranial nerves II through XII grossly intact. No focal deficits. SKIN: Warm, Dry, no rashes noted. Results CBC & Chem 7: 11/29/24 23:31 11/29/24 23:31 Labs: Abnormal Lab Results - Last 24 Hours (Table) 11/29/24 11/29/24 11/30/24 Range/Units 23:31 23:31 01:04 WBC 13.9 H (3.8-10.6) k/uL Hct 46.7 H (34.0-46.0) % Neutrophils # 9.5 H (1.3-7.7) k/uL Sodium 136 L (137-145) mmol/L Urine Appearance Cloudy H (Clear) Urine Bacteria Many H (None) /hpf Urine Mucus Occasional H (None) /hpf Urine Yeast (Budding) Rare H (None) /hpf Assessment and Plan Assessment: Chest pain, troponins negative x 3 CAD, history of NSTEMI and stents of the LAD, RCA Diabetes mellitus type 2, insulin pump, hemoglobin A1c pending Essential hypertension Hyperlipidemia Nicotine dependence Marijuana use ADD/ADHD Anxiety, depression Plan: Continue on current medication regimen ,monitoring and symptomatic treatment. echo pending. Patient received breakfast this morning therefore dobutamine stress test scheduled for tomorrow as per cardiology. Smoking cessa tion reinforced.GB US ordered. The impression and plan of care has been dictated as directed. : I performed a history and examination of this patient, discussed the same with the dictator. I agree with the dictator's note ,documented as a scribe. Any additional findings or plans will be noted.
--- NOTE | 2024-11-30 11:47 | CA ---
Transthoracic Echo Report Name: Lucy Gomez Age: 44 Gender: F : 1980 Exam Date: 11/30/2024 09:31 Exam Location: [facility] Ht (in): 63 Wt (lb): 392 Ordering Physician: Winifred Flores Attending/Referring Phys: Can Line Examiner Nayely Bennett RDCS Procedure CPT: Indications: LVF Cardiac Hx: Technical Quality: Fair Contrast 1: Total Dose (mL): Contrast 2: Total Dose (mL): MEASUREMENTS (Male / Female) Normal Values 2D ECHO LV Diastolic Diameter PLAX 3.6 cm 4.2 - 5.9 / 3.9 - 5.3 cm LV Systolic Diameter PLAX 2.3 cm IVS Diastolic Thickness 1.2 cm 0.6 - 1.0 / 0.6 - 0.9 cm LVPW Diastolic Thickness 1.3 cm 0.6 - 1.0 / 0.6 - 0.9 cm LV Relative Wall Thickness 0.7 RV Internal Dim ED PLAX 2.3 cm Aortic Root Diameter 3.8 cm LA Systolic Diameter LX 3.5 cm 3.0 - 4.0 / 2.7 - 3.8 cm LV Diastolic Volume MOD BP 78.7 cm??? 67 - 155 / 56 - 104 cm??? LV Systolic Volume MOD BP 31.8 cm??? 22 - 58 / 19 - 49 cm??? LV Ejection Fraction MOD BP 59.6 % >= 55 % LV Cardiac Index MOD BP 1068.4 cm???/min???m??? LV Diastolic Volume MOD 4C 84.8 cm??? LV Systolic Volume MOD 4C 33.9 cm??? LV Ejection Fraction MOD 4C 60.0 % LV Cardiac Index MOD 4C 1158.2 cm???/min???m??? LV Diastolic Length 4C 7.3 cm LV Systolic Length 4C 5.9 cm LV Diastolic Volume MOD 2C 69.3 cm??? LV Systolic Volume MOD 2C 28.9 cm??? LV Ejection Fraction MOD 2C 58.3 % LV Cardiac Index MOD 2C 918.9 cm???/min???m??? LV Diastolic Length 2C 6.9 cm LV Systolic Length 2C 5.7 cm LA Volume 48.4 cm??? 18 - 58 / 22 - 52 cm??? LA Volume Index 16.4 cm???/m??? 16 - 28 cm???/m??? M-MODE Aortic Root Diameter MM 3.4 cm LA Systolic Diameter MM 2.9 cm LA Ao Ratio MM 0.8 AV Cusp Separation MM 1.7 cm DOPPLER AI Peak Velocity 282.7 cm/s AI Peak Gradient 32.0 mmHg AI Pressure Half Time 1225.5 ms MV Area PHT 3.5 cm??? Mitral E Point Velocity 82.0 cm/s Mitral A Point Velocity 94.4 cm/s Mitral E to A Ratio 0.9 MV Deceleration Time 217.1 ms TR Peak Velocity 213.5 cm/s TR Peak Gradient 18.2 mmHg Right Ventricular Systolic Press 22.9 mmHg FINDINGS Left Ventricle Left ventricular ejection fraction is estimated at 55-60 %. Mildly increased septal wall thickness. Moderately increased posterior wall thickness. Normal left ventricular systolic function with no obvious regional wall motion abnormalities. Right Ventricle Normal right ventricular size and function. Right ventricular systolic pressure within normal limits. Right Atrium Normal right atrial size. Left Atrium Normal left atrial size. Mitral Valve Structurally normal mitral valve. Mild mitral regurgitation. No mitral stenosis. Aortic Valve Trileaflet aortic valve. Trace aortic regurgitation. No aortic stenosis. Tricuspid Valve Structurally normal tricuspid valve. Mild tricuspid regurgitation. No tricuspid stenosis. Pulmonic Valve Structurally normal pulmonic valve. Trace pulmonic regurgitation. No pulmonic stenosis. Pericardium No pericardial or pleural effusion. Aorta Mildly dilated proximal ascending aorta (tube), 3.8 cm. CONCLUSIONS Indication: Chest pain LVH with preserved systolic function Prominent posterior pericardial stripe Previewed by: Dr. Osvaldo Quiñones MD (Electronically Signed) Final Date: 30 November 2024 11:46
--- NOTE | 2024-11-30 14:09 | P.CRDCN ---
History of Present Illness Consult date: 11/30/24 Consult reason: chest pain History of present illness: This is a 44-year-old female patient of Dr. Rios with past medical history of diabetes type 1, CAD status post PCI of the LAD and RCA, hyperlipidemia, tobacco use, hypertension. We have been asked to evaluate the patient for chest pain. Patient states that while she was at work yesterday she developed a grabbing type squeezing sensation to her heart. She states she also started swe ating and she went outside to get cooled off. She states she took a nitroglycerin which seemed to help a little bit. By 8 PM the pain was coming back and she took a second nitroglycerin. She states the pain is still there and it is from the mid sternal chest and goes through to the mid back area. She denies having any fever. Patient was noted to have leukocytosis and she was on steroids last week ordered by Dr. Hidalgo for left hip pain. Blood pressure 117/78, heart rate 70, pulse ox 97% on room air. Patient is seen today in the emergency center. Unfortunately, patient had breakfast and this will postpone stress testing until tomorrow. -EKG: Sinus rhythm with T wave inversions -Chest x-ray: No acute process. -Echocardiogram obtained on this admission reveals LVH with preserved systolic function. Prominent posterior pericardial stripe. -Laboratory studies: WBC 13.9, hemoglobin 15.5, electrolytes renal function liver function test within normal limits. Troponin negative x 3. Acetone negative. -Home cardiac medications: Aspirin 81 mg daily, atorvastatin 80 mg daily, losart an 25 mg daily. -Cardiac catheterization performed 03/11/2019 showed patent stents with intermediate 50% RCA lesion Review Of Systems: At the time of my exam: CONSTITUTIONAL: Denies fever or chills. HEENT: Denies blurred vision, vision changes, or eye pain. Denies hemoptysis CARDIOVASCULAR: Denies chest pain. Denies orthopnea. Denies PND. Denies palpitations RESPIRATORY: Denies shortness of breath. GASTROINTESTINAL: Denies abdominal pain. Denies nausea or vomiting. HEMATOLOGIC: Denies bleeding disorders. GENITOURINARY: Denies any blood in urine. SKIN: Denies puritis. Denies rash. Physical examination: Gen: This is a 44-year-old female in no acute distress. VS: reviewed HEENT: Head is atraumatic, normocephalic. Pupils equal, round. Sclerae is anicteric. NECK: Supple. No JVD. LUNGS: Clear to auscultation. No wheezes or rhonchi. No intercostal retractions. HEART: Regular rate and rhythm. No murmur. ABDOMEN: Soft No tenderness. EXTREMITIES: No pedal edema. No calf tenderness. NEUROLOGICAL: Patient is awake, alert and oriented x3. Assessment: Atypical chest pain, acute coronary syndrome ruled out History of coronary artery disease with previous PCI of the LAD and RCA Hyperlipidemia Diabetes mellitus type 1 Hypertension Plan: Resume patient's home cardiac medications Patient will be scheduled for dobutamine stress echocardiogram tomorrow If stress testing is unremarkable, patient is cleared for discharge and may follow-up in the office with Dr. Rios in 1 to 2 weeks. Further recommendations to follow based upon clinical course Thank you kindly for this consultation. Nurse practitioner note has been reviewed, I agree with documented findings and plan of care. Patient was seen and examined. Past Medical History Past Medical History: Chest Pain / Angina, Diabetes Mellitus, Hyperlipidemia, Hypertension, Myocardial Infarction (NM) Additional Past Medical History / Comment(s): neuropathy, restless leg syndrome, recent admission for chest pain, anuerysm ascending aortic, NM 2017, 4 Cardiac STENTS Last Myocardial Infarction Date:: May 2017 History of Any Multi-Drug Resistant Organisms: None Reported Past Surgical History: Section, Heart Catheterization With Stent, Tubal Ligation, Uterine Ablation Additional Past Surgical History / Comment(s): sinues surgery, right breast cyst removal, 14 cysts taken of ovaries and tubes, Past Anesthesia/Blood Transfusion Reactions: No Reported Reaction Date of Last Stent Placement:: May 2017 Past Psychological History: ADD/ADHD, Anxiety, Depression Smoking Status: Current every day smoker Past Alcohol Use History: None Reported Past Drug Use History: Marijuana - Past Family History Father Family Medical History: No Reported History Medications and Allergies Home Medications Medication Instructions Recorded Confirmed Type Dextroamphetamine/Amphetamine 30 mg PO DAILY 06/19/14 11/30/24 History [Adderall Xr] Atorvastatin [Lipitor] 80 mg PO DAILY 02/11/19 11/30/24 History Cetirizine HCl [Zyrtec] 10 mg PO DAILY 02/11/19 11/30/24 History Aspirin 81 mg PO DAILY chew 04/19/21 11/30/24 Rx Insulin Aspart (For Pump) [NovoLOG 0.01 unit SQ-PUMP CONTINUOUS 11/30/24 11/30/24 History (For Pump)] Losartan [Cozaar] 25 mg PO DAILY 11/30/24 11/30/24 History predniSONE See Taper PO DAILY 11/30/24 11/30/24 History valACYclovir HCL [Valtrex] 1,000 mg PO DAILY 11/30/24 11/30/24 History Allergies Allergy/AdvReac Type Severity Reaction Status Date / Time cefaclor [From Ceclor] Allergy Unknown Verified 11/30/24 07:10 Cephalosporins Allergy Unknown Verified 11/30/24 07:10 hydromorphone HCl Allergy Unknown Verified 11/30/24 07:10 [From Dilaudid] lithium [[place]] Allergy Unknown Verified 11/30/24 07:10 oxcarbazepine Allergy Unknown Verified 11/30/24 07:10 [From Trileptal] phenytoin sodium Allergy Unknown Verified 11/30/24 07:10 [From Dilantin] phenytoin sodium extended Allergy Unknown Verified 11/30/24 07:10 [From Dilantin] Sulfa (Sulfonamide Allergy Unknown Verified 11/30/24 07:10 Antibiotics) sulfamethoxazole Allergy Unknown Verified 11/30/24 07:10 [From Bactrim] trimethoprim [From Bactrim] Allergy Unknown Verified 11/30/24 07:10 Physical Exam Vitals: Vital Signs Temp Pulse Resp BP Pulse Ox 11/30/24 08:43 70 18 117/78 97 11/30/24 07:36 78 18 117/78 97 11/30/24 06:11 98.5 F 71 18 123/74 97 11/29/24 23:10 97.9 F 81 20 155/87 100 Intake and Output 11/29/24 11/30/24 11/30/24 22:59 06:59 14:59 Other: Weight 177.9 kg Results 11/29/24 23:31 11/29/24 23:31 Cardiac Enzymes 11/29/24 11/29/24 11/30/24 Range/Units 23:31 23:31 02:52 AST 20 (14-36) U/L Troponin I <0.012 <0.012 (0.000-0.034) ng/mL 11/30/24 Range/Units 06:10 AST (14-36) U/L Troponin I <0.012 (0.000-0.034) ng/mL Coagulation 11/29/24 Range/Units 23:31 PT 10.1 (10.0-12.5) sec APTT 22.7 (22.0-30.0) sec CBC 11/29/24 Range/Units 23:31 WBC 13.9 H (3.8-10.6) k/uL RBC 4.91 (3.80-5.40) m/uL Hgb 15.5 (11.4-16.0) gm/dL Hct 46.7 H (34.0-46.0) % Plt Count 390 (150-450) k/uL Comprehensive Metabolic Panel 11/29/24 Range/Units 23:31 Sodium 136 L (137-145) mmol/L Potassium 3.6 (3.5-5.1) mmol/L Chloride 100 (98-107) mmol/L Carbon Dioxide 27 (22-30) mmol/L BUN 15 (7-17) mg/dL Creatinine 0.53 (0.52-1.04) mg/dL Glucose 86 (74-99) mg/dL Calcium 9.6 (8.4-10.2) mg/dL AST 20 (14-36) U/L ALT 21 (4-34) U/L Alkaline Phosphatase 83 (38-126) U/L Total Protein 7.3 (6.3-8.2) g/dL Albumin 4.3 (3.5-5.0) g/dL Current Medications Generic Name Dose Route Start Last Admin Trade Name Tonyq PRN Reason Stop Dose Admin Acetaminophen 650 mg 11/30/24 02:36 Acetaminophen Tab 325 Mg Tab PO Q6HR PRN Mild Pain or Fever > 100.5 Atorvastatin Calcium 80 mg 11/30/24 09:00 11/30/24 08:40 Atorvastatin 80 Mg Tab PO 80 mg DAILY BOUBACAR Administration Dextrose/Water 25 ml 11/30/24 08:17 Dextrose 50% Syringe 50 Ml IVP PER PROTOCOL PRN Hypoglycemia Protocol Dextrose/Water 50 ml 11/30/24 08:17 Dextrose 50% Syringe 50 Ml IVP PER PROTOCOL PRN Hypoglycemia Protocol Ibuprofen 400 mg 11/30/24 02:36 Ibuprofen 400 Mg Tab PO Q6HR PRN Mild Pain or Fever > 100.5 Insulin Aspart 0.01 unit 11/30/24 08:30 11/30/24 08:29 Insulin Aspart (For Pump) 100 Unit/Ml Vial SQ-PUMP Not Given DIRECTED BOUBACAR Naloxone HCl 0.2 mg 11/30/24 02:36 Naloxone 0.4 Mg/Ml 1 Ml Vial IV Q2M PRN Opioid Reversal Ondansetron HCl 4 mg 11/30/24 02:36 Ondansetron 4 Mg/2 Ml Vial IVP Q8HR PRN Nausea And Vomiting Intake and Output 11/29/24 11/30/24 11/30/24 22:59 06:59 14:59 Other: Weight 177.9 kg 11/29/24 23:31 11/29/24 23:31
[2024-11-30 17:37] LABS: Glucose,Whole Blood 323 mg/dL (70-110)
[2024-11-30] MEDS: INSULIN LISPRO (HumaLOG) 100 UNIT/ML 10 mL VL SQ SCH (18:17)
[2024-11-30 20:36] LABS: Glucose,Whole Blood 222 mg/dL (70-110)
[2024-11-30] MEDS: clonazePAM 0.5 MG TAB PO SCH (22:28)
[2024-12-01 05:51] LABS: Glucose,Whole Blood 291 mg/dL (70-110)
[2024-12-01] MEDS ORDERED: DOBUTamine DRIP for NUC MED 500 MG in DEXTROSE/WATER 1 250ML.BAG IV PRN (06:00)
--- NOTE | 2024-12-01 08:01 | US ---
EXAMINATION TYPE: US gallbladder DATE OF EXAM: 12/01/2024 COMPARISON: NONE CLINICAL INDICATION: Female, 44 years old with history of nausea, midepigastric/midsternal rad to tammie k; Hx HTN and DM TECHNIQUE: Grayscale and color Doppler imaging of the right upper quadrant was performed. FINDINGS: EXAM MEASUREMENTS: Liver Length: 15.3 cm Gallbladder Wall: 0.3 cm CBD: 0.2 cm Right Kidney: 11.9 x 5.2 x 5.8 cm Pancreas: Most of the pancreas is visualized and shows no gross abnormality. Liver: wnl Gallbladder: wnl Evidence for sonographic Levy's sign: No CBD: wnl Right Kidney: wnl IMPRESSION: Unremarkable sonographic examination right upper quadrant. [facility], Workstation: [facility], 12/01/2024 7:59 AM
[2024-12-01 08:31] LABS: ALT 19 U/L (8-44); AST 16 U/L (13-35); Albumin 3.7 g/dL (3.8-4.9); Albumin/Globulin Ratio 1.54 Ratio (1.60-3.17); Alkaline Phosphatase 74 U/L (41-126); BUN/Creat Ratio 21.71 Ratio (12.00-20.00); Blood Urea Nitrogen 15.2 mg/dL (9.0-27.0); Calcium 8.8 mg/dL (8.7-10.3); Carbon Dioxide 22.4 mmol/L (21.6-31.8); Chloride 103 mmol/L (96-109); Globulin 2.4 g/dL (1.6-3.3); Glucose 339 mg/dL (70-110); Potassium 4.3 mmol/L (3.5-5.5); Sodium 135 mmol/L (135-145); Total Bilirubin 0.3 mg/dL (0.3-1.2); Total Protein 6.1 g/dL (6.2-8.2)
[2024-12-01 08:51] LABS: Basophils # (A) 0.05 X 10*3/uL (0.00-0.10); Basophils % (A) 0.6 %; Eosinophils # (A) 0.13 X 10*3/uL (0.04-0.35); Eosinophils % (A) 1.5 %; HCT 41.4 % (37.2-46.3); HGB 14.2 g/dL (12.0-15.0); Lymphocytes # (A) 3.13 X 10*3/uL (0.90-5.00); Lymphocytes % (A) 35.2 %; MCH 32.6 pg (27.0-32.0); MCHC 34.3 g/dL (32.0-37.0); Monocytes # (A) 0.71 X 10*3/uL (0.20-1.00); NRBC Per 100 WBC 0 X 10*3/uL (0.00-0.01); Neutrophils # (A) 4.82 X 10*3/uL (1.80-7.70); Neutrophils % (A) 54.1 %; Platelet Count 286 X 10*3/uL (140-440); RBC 4.36 X 10*6/uL (4.10-5.20); RDW 11.5 % (11.5-14.5); WBC 8.89 X 10*3/uL (4.50-10.00)
[2024-12-01] MEDS: ASPIRIN 81 MG PO SCH (09:03)
[2024-12-01] MEDS: LOSARTAN 25 MG TAB PO SCH (09:04)
[2024-12-01 10:34] LABS: Chol/HDL Ratio 4.76 Ratio; LDL Cholesterol,Calculated 127.3 mg/dL (0.0-131.0)
[2024-12-01 12:03] LABS: Glucose,Whole Blood 289 mg/dL (70-110)
[2024-12-01] MEDS: INSULIN GLARGINE (LANTUS) 100 UNIT/ML SYR SQ SCH (12:18)
--- NOTE | 2024-12-01 12:43 | P.PN ---
Subjective Progress Note Date: 12/01/24 Consult reason: chest pain History of present illness: This is a 44-year-old female patient of Dr. Rios with past medical history of diabetes type 1, CAD status post PCI of the LAD and RCA, hyperlipidemia, tobacco use, hypertension. We have been asked to evaluate the patient for chest pain. Patient states that while she was at work yesterday she developed a grabbing type squeezing sensation to her heart. She states she also started sweating and she went outside to get cooled off. She states she took a nitroglycerin which seemed to help a little bit. By 8 PM the pain was coming back and she took a second nitroglycerin. She states the pain is still there and it is from the mid sternal chest and goes through to the mid back area. She denies having any fever. Patient was noted to have leukocytosis and she was on steroids last week ordered by Dr. Hidalgo for left hip pain. Blood pressure 117/78, heart rate 70, pulse ox 97% on room air. Patient is seen today in the emergency center. Unfortunately, patient had breakfast and this will postpone stress testing until tomorrow. -EKG: Sinus rhythm with T wave inversions -Chest x-ray: No acute process. -Echocardiogram obtained on this admission reveals LVH with preserved systolic f unction. Prominent posterior pericardial stripe. -Laboratory studies: WBC 13.9, hemoglobin 15.5, electrolytes renal function liver function test within normal limits. Troponin negative x 3. Acetone negative. -Home cardiac medications: Aspirin 81 mg daily, atorvastatin 80 mg daily, losartan 25 mg daily. -Cardiac catheterization performed 03/11/2019 showed patent stents with intermediate 50% RCA lesion / Patient seen and examined. Patient denies chest pain. She is scheduled for dobutamine stress echocardiogram today. She is NPO. No new concerns. Blood pressure 109/55, heart rate 72, pulse ox 98% on room air. Repeat blood work reveals hemoglobin 14.2, BUN 15 creatinine 0.7. Triglycerides 122, cholesterol 192, LDL 127, HDL 40. Physical examination: Gen: This is a 44-year-old female in no acute distress. VS: reviewed HEENT: Head is atraumatic, normocephalic. Pupils equal, round. Sclerae is anicteric. NECK: Supple. No JVD. LUNGS: Clear to auscultation. No wheezes or rhonchi. No intercostal retractions. HEART: Regular rate and rhythm. No murmur. ABDOMEN: Soft No tenderness. EXTREMITIES: No pedal edema. No calf tenderness. NEUROLOGICAL: Patient is awake, alert and oriented x3. Assessment: Atypical chest pain, acute coronary syndrome ruled out History of coronary artery disease with previous PCI of the LAD and RCA Hyperlipidemia Diabetes mellitus type 1 Hypertension Plan: Continue patient's home cardiac medications Patient is scheduled for dobutamine stress echocardiogram this morning If stress testing is unremarkable, patient is cleared for discharge and december ollow-up in the office with Dr. Rios in 1 to 2 weeks. Nurse practitioner note has been reviewed, I agree with documented findings and plan of care. Patient was seen and examined. Objective - Vital Signs Vital signs: Vital Signs Temp 98.2 F 12/01/24 02:28 Pulse 61 12/01/24 02:28 Resp 14 12/01/24 02:28 BP 136/80 12/01/24 02:28 Pulse Ox 100 12/01/24 02:28 FiO2 Intake & Output 11/30/24 12/01/24 12/01/24 18:59 06:59 18:59 Weight 80.286 kg Other: Voiding Method Toilet # Voids 3 - Labs CBC & Chem 7: 12/01/24 05:56 12/01/24 05:56 Labs: Abnormal Lab Results - Last 24 Hours (Table) 11/30/24 11/30/24 12/01/24 Range/Units 17:35 20:35 05:50 POC Glucose (mg/dL) 323 H 222 H 291 H (70-110) mg/dL
[2024-12-01 12:52] VITALS: RESP 16
[2024-12-01 14:05] VITALS: BP 124/81; PULSE 78; TEMP 98.2
--- NOTE | 2024-12-01 15:36 | P.DS ---
Providers Date of admission: 11/30/24 03:43 Expected date of discharge: 12/01/24 Attending physician: Jasen Hidalgo Consults: 11/30/24 02:36 Consult Physician Routine Consulting Provider: Jhoan Rios Consult Reason/Comments: chest pain Do you want consulting provider notified?: Yes, Notify in am Primary care physician: Jasen Hidalgo Hospital Course: Final Diagnoses: Chest pain, troponins negative x 3,ACS ruled out , cardiology following CAD, history of NSTEMI and stents of the LAD, RCA Diabetes mellitus type 1, insulin pump, hemoglobin A1c 9.4. Patient will requ danielle further diabetic education outpatient in clinic. Essential hypertension Hyperlipidemia Nicotine dependence Marijuana use ADD/ADHD Anxiety, depression Hospital course:This is a 44-year-old female with past medical history significant for CAD, [place] with stent of the LAD and RCA, diabetes mellitus type 2, nicotine dependent , neuropathy, restless leg syndrome , ADD/ADHD, anxiety, depression, marijuana use and multiple other medical issues presented to the ER with chest pain. Patient is a basin finish operator tig welder, denies heavy lifting, while at work yesterday around 7 PM developed midsternal squeezing chest pain radiating through to her back accompanied by shortness of breath, nausea,diaphoresis, unrelieved by 2 sublingual nitroglycerin tabs, proceeded to the ER arriving around 11 with persistent pain. no vomiting or diarrhea. Denies abdominal pain. Perfuse night sweats x 3-"waking up soaked." .currently denies chest pain. Patient also reports ascending aortic aneurysm.Echo of 06/29/2023, reports ascending aorta diameter 3.9 cm, normal LV size and systolic function. Maintaining O2 sats in the high 90s to 100% on room air. WBC 13.9, hemoglobin 15.5, platelets 390, INR 0.9. Chemistry panel unremarkable/troponins negative x 3 . EKG reported sinus rhythm with nonspecific T wave abnormality. UA negative. Chest x-ray reported no acute cardiopulmonary disease process. Cardiology consult in place. echo pending. Patient received breakfast this morning therefore dobutamine stress test scheduled for tomorrow as per cardiology. Smoking cessation reinforced.GB US ordered. 12/01/2024 no further chest pain. NPO,Scheduled for dobutamine stress test this morning.Gallbladder ultrasound reported unremarkable. Discussed HIDA scan outp atient for further workup. During the night, patient ran out of insulin for her insulin pump. She was placed on NovoLog sliding scale, hyperglycemic this morning. Lantus initiated. Patient confirms that she does have insulin refills for her pump at home. Hemoglobin A1c 9.4. Vital signs stable.Echo reported LVH with preserved systolic function, prominent posterior pericardial stripe. Triglycerides 122, cholesterol 192, LDL 127 LDL 24.4 HDL 40.3. Patient will be discharged home today in a stable condition with guarded prognosis pending stress test results, final DC recommendations and clearance per cardiology. The impression and plan of care has been dictated as directed. : I performed a history and examination of this patient, discussed the same with the dictator. I agree with the dictator's note ,documented as a scribe. Any additional findings or plans will be noted. Patient Condition at Discharge: Stable Plan - Discharge Summary Discharge Rx Participant: No New Discharge Prescriptions: Continue Dextroamphetamine/Amphetamine [Adderall Xr] 30 mg PO DAILY Cetirizine HCl [Zyrtec] 10 mg PO DAILY Atorvastatin [Lipitor] 80 mg PO DAILY predniSONE See Taper PO DAILY Losartan [Cozaar] 25 mg PO DAILY Aspirin 81 mg PO DAILY chew Insulin Aspart (For Pump) [NovoLOG (For Pump)] 0.01 unit SQ-PUMP CONTINUOUS valACYclovir HCL [Valtrex] 1,000 mg PO DAILY Discharge Medication List Dextroamphetamine/Amphetamine [Adderall Xr] 30 mg PO DAILY 06/19/14 [History] Atorvastatin [Lipitor] 80 mg PO DAILY 02/11/19 [History] Cetirizine HCl [Zyrtec] 10 mg PO DAILY 02/11/19 [History] Aspirin 81 mg PO DAILY chew 04/19/21 [Rx] Insulin Aspart (For Pump) [NovoLOG (For Pump)] 0.01 unit SQ-PUMP CONTINUOUS 11/30/24 [History] Losartan [Cozaar] 25 mg PO DAILY 11/30/24 [History] predniSONE See Taper PO DAILY 11/30/24 [History] valACYclovir HCL [Valtrex] 1,000 mg PO DAILY 11/30/24 [History] Follow up Appointment(s)/Referral(s): Jasen Hidalgo MD [Primary Care Provider] - 3 Days Patient Instructions/Handouts: Chest Pain (DC) Activity/Diet/Wound Care/Special Instructions: Further diabetic education in clinic with PCP, hemoglobin A1c 9.4
--- NOTE | 2024-12-01 17:07 | CA ---
Dobutamine Stress Echocardiogram Report Lucy Gomez Age: 44 Gender: F : 1980 Exam Date: 12/01/2024 09:17 Exam Location: [facility] Ordering Physician: Winifred Flores Referring Physician: [id number] Manley Alterations Manager: Shane Melgar Technologist: Ht (in): 63 Wt (lb): 177 Procedure CPT: Indication: Chest Pain ICD-9 Codes: Rhythm: Patient History: Cardiac Medications: see chart Medications in past 24 hours: Contrast: N/A Total Dose (mL): NA Stress Results Protocol: Dobutamine Peak Dose (???g/kg/min): 40 Duration (min:sec): Atropine:(mg) None Target HR: 148 Double Product: 33104 Resting HR: 70 Resting BP: 107 / 81 Peak HR: 149 Peak BP: 142 / 68 Max Predicted HR: 174 86 % Max Predicted HR Stress Summary: BP Response: Reason for Termination: Exceeded target heart rate (85% max predicted) Cardiac Symptoms: NAUSEA ECG Analysis Resting EKG: Stress EKG: Arrhythmia: Echo Analysis Base Echo Analysis: Low Echo Anaylsis: Peak Echo Analysis: Recovery Echo: MEASUREMENTS (Male/Female) Normal Values CONCLUSIONS Indication: Chest discomfort, known CAD, hypertension diabetes dyslipidemia and smoking Dobutamine stress echo does not show any ECG or echocardiographic evidence for ischemia. Up to [address] Osvaldo Quiñones MD (Electronically Signed) Final Date: 01 December 2024 17:06
[2024-12-01 17:15] LABS: Glucose,Whole Blood 225 mg/dL (70-110)
[2024-12-02] MEDS ORDERED: PANTOPRAZOLE 40 MG TABLET PO SCH (07:30)
== END 2024-12-01 17:57 | disposition home or self-care (01) ==
LOC: EC 23:07 → 6NMEDSUR 11-30 03:43
PROVIDERS: ADMIT Family Medicine; ATTEND Family Medicine
DX: R07.89 Other chest pain (principal); I25.10 Atherosclerotic heart disease of native coronary artery without angina pectoris; I10 Essential (primary) hypertension; E78.5 Hyperlipidemia, unspecified; E10.40 Type 1 diabetes mellitus with diabetic neuropathy, unspecified; I71.21 Aneurysm of the ascending aorta, without rupture; F17.200 Nicotine dependence, unspecified, uncomplicated; D72.829 Elevated white blood cell count, unspecified; M54.9 Dorsalgia, unspecified; G25.81 Restless legs syndrome; F90.9 Attention-deficit hyperactivity disorder, unspecified type; F32.A Depression, unspecified; F41.9 Anxiety disorder, unspecified; F12.90 Cannabis use, unspecified, uncomplicated; I25.2 Old myocardial infarction; Z96.41 Presence of insulin pump (external) (internal); Z79.4 Long term (current) use of insulin; Z79.51 Long term (current) use of inhaled steroids; Z79.82 Long term (current) use of aspirin; Z79.899 Other long term (current) drug therapy; Z88.1 Allergy status to other antibiotic agents; Z88.5 Allergy status to narcotic agent; Z88.2 Allergy status to sulfonamides; Z88.8 Allergy status to other drugs, medicaments and biological substances; Z95.5 Presence of coronary angioplasty implant and graft
CPT/HCPCS: 96374; 99285; 36415 ×2; 93005; 93306; 93351; 80061; 80053 ×2; 82009; 83690; 83735; 84484 ×2; 85025 ×2; 85610; 85730; 81001; 83036; 71046; 76705; G0378 ×2; J1250; J2470